=== PATIENT | male | born 1955 | race Caucasian/White ===

== ENCOUNTER → 2017-03-01 | Outpatient (CLI) | payer BC ==
--- NOTE | 2017-03-03 09:38 | PE ---
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 Delayed scanning performed from the skull base to th e mid thighs. Localization and attenuation correction CT scan was performed. There are no comparisons Neck and chest: No suspicious hypermetabolic uptake. There is no evident adenopathy. No lung nodule. Calcified left hilar nodes are present. There is some distention of the distal esophagus. Abnormal so ft tissue thickening is present at this level. There is some associated mild hypermetabolic uptake at the level of the distal esophagus, SUV 3.3. Emphysematous changes are present especially in the uppe r lobes. Abdomen pelvis: No evident liver mass. No retroperitoneal adenopathy. No suspicious hypermetabolic up take. Uptake along the sigmoid colon felt likely to be physiologic, SUV is increased however, 12.1. U ptake in the rectum likely physiologic. Osseous structures within normal limits IMPRESSION: There is only mild uptake at the level of the esophagus distally as described. Old granul omatous disease. Sigmoid colon uptake could be physiologic, correlate to exclude colitis, consider baldev wel surveillance.
== END ==
LOC: RADPETMAIN 10:51
PROVIDERS: ATTEND Internal Medicine Hematology & Oncology
DX: C15.5 Malignant neoplasm of lower third of esophagus (principal); L92.9 Granulomatous disorder of the skin and subcutaneous tissue, unspecified
CPT/HCPCS: 78815; A9552

== ENCOUNTER 2017-03-14 10:32 | Emergency (ER) | payer BC ==
[2017-03-14] MEDS ORDERED: IPRATROPIUM-ALBUTEROL 3 ML NEB INHALATION STA (10:46)
[2017-03-14] MEDS ORDERED: SODIUM CHLORIDE 0.9% 1,000 ML IV STA (10:46)
[2017-03-14] MEDS ORDERED: methylPREDNISolone SOD SUCCI 125 MG/2 ML VIAL IV STA (10:46)
[2017-03-14] MEDS ORDERED: KETOROLAC 30 MG/ML 1 ML VIAL IVP STA (10:46)
--- NOTE | 2017-03-14 11:23 | ED ---
General Adult HPI - General Chief complaint: Chest Pain Stated complaint: Chest Pain Time Seen by Provider: 03/14/17 10:45 Source: patient, family, RN notes reviewed, old records reviewed Mode of arrival: wheelchair Limitations: no limitations - History of Present Illness Initial comments: This is a 61-year-old male to the ER for evaluation. This patient presents today for evaluation regarding chest pain. Chest pain and abdominal pain. Patient states pain is more in his epigastric area and feels like bloating. Patient currently is going through radiation for esophageal cancer. physical after 2 weeks, the pain is episodic. No nausea vomiting no abdominal symptoms. No significant source of breath denies any history of chest pain. Patient denies any fever cough or congestion. Patient is not taking any pain medication at home, no modifying factors for symptoms - Related Data Home Medications Medication Instructions Recorded Confirmed Albuterol Inhaler [Ventolin Hfa 1 - 2 puff INHALATION RT-Q4H PRN 03/14/17 Inhaler] Albuterol Nebulized [Ventolin 2.5 mg INHALATION RT-QID PRN 03/14/17 03/14/17 Nebulized] Beclomethasone Dipropionate [Qvar 2 puff INHALATION RT-BID 03/14/17 03/14/17 80 mcg] Previous Rx's Medication Instructions Recorded HYDROcodone/APAP 5-325MG [[place] 1 tab PO Q6HR PRN #30 tab 03/14/17 5-325] Allergies Allergy/AdvReac Type Severity Reaction Status Date / Time No Known Allergies Allergy Verified 03/14/17 10:45 Review of Systems ROS Statement: Those systems with pertinent positive or pertinent negative responses have been documented in the HPI. ROS Other: All systems not noted in ROS Statement are negative. Past Medical History Past Medical History: Cancer, COPD Additional Past Medical History / Comment(s): radiation History of Any Multi-Drug Resistant Organisms: None Reported Past Psychological History: No Psychological Hx Reported Smoking Status: Current some day smoker Past Alcohol Use History: Rare Past Drug Use History: None Reported General Exam Limitations: no limitations General appearance: alert, in no apparent distress Head exam: Present: atraumatic, normocephalic, normal inspection Eye exam: Present: normal appearance, PERRL, EOMI. Absent: scleral icterus, conjunctival injection, periorbital swelling ENT exam: Present: normal exam, mucous membranes moist Neck exam: Present: normal inspection. Absent: tenderness, meningismus, lymphadenopathy Respiratory exam: Present: normal lung sounds bilaterally. Absent: respiratory distress, wheezes, rales, rhonchi, stridor Cardiovascular Exam: Present: regular rate, normal rhythm, normal heart sounds. Absent: systolic murmur, diastolic murmur, rubs, gallop, clicks GI/Abdominal exam: Present: soft, normal bowel sounds. Absent: distended, tenderness, guarding, rebound, rigid Extremities exam: Present: normal inspection, full ROM, normal capillary refill. Absent: tenderness, pedal edema, joint swelling, calf tenderness Back exam: Present: normal inspection Neurological exam: Present: alert, oriented X3, CN II-XII intact Psychiatric exam: Present: normal affect, normal mood Skin exam: Present: warm, dry, intact, normal color. Absent: rash Course Vital Signs 03/14/17 03/14/17 03/14/17 10:34 11:21 11:31 Temperature 97 F L Pulse Rate 85 76 79 Respiratory 16 16 Rate Blood Pressure 111/77 O2 Sat by Pulse 94 L Oximetry - Reevaluation(s) Reevaluation #1: 03/14/17 13:07 Patient's not asking for any acute pain medication at this time. No shortness of breath. Pain is not reproducible to palpation EKG Findings - EKG Comments: EKG Findings:: EKG shows normal sinus rhythm rate of 76, IN 160, QRS 80, QTC 459 Medical Decision Making - Medical Decision Making 61 male the ER for evaluation of epigastric abdominal pain. Bloating and swelling. Patient denies fever cough congestion, no shortness of breath. No nausea vomiting or diarrhea. Patient will be discharged home - Lab Data Result diagrams: 03/14/17 11:03/14/17 11:09 Lab Results 03/14/17 03/14/17 03/14/17 Range/Units 11: 11: 11: WBC 4.9 (3.8-10.6) k/uL RBC 4.66 (4.30-5.90) m/uL Hgb 14.0 (13.0-17.5) gm/dL Hct 40.8 (39.0-53.0) % MCV 87.5 (80.0-100.0) fL MCH 30.1 (25.0-35.0) pg MCHC 34.4 (31.0-37.0) g/dL RDW 12.2 (11.5-15.5) % Plt Count 275 (150-450) k/uL Neutrophils % 74 % Lymphocytes % 15 % Monocytes % 6 % Eosinophils % 3 % Basophils % 1 % Neutrophils # 3.6 (1.3-7.7) k/uL Lymphocytes # 0.7 L (1.0-4.8) k/uL Monocytes # 0.3 (0-1.0) k/uL Eosinophils # 0.1 (0-0.7) k/uL Basophils # 0.0 (0-0.2) k/uL PT (9.0-12.0) sec INR (<1.2) APTT (22.0-30.0) sec Sodium 138 (137-145) mmol/L Potassium 4.4 (3.5-5.1) mmol/L Chloride 102 (98-107) mmol/L Carbon Dioxide 29 (22-30) mmol/L Anion Gap 7 mmol/L BUN 9 (9-20) mg/dL Creatinine 0.57 L (0.66-1.25) mg/dL Est GFR (MDRD) Af Amer >60 (>60 ml/min/1.73 sqM) Est GFR (MDRD) Non-Af >60 (>60 ml/min/1.73 sqM) Glucose 82 (74-99) mg/dL Calcium 9.5 (8.4-10.2) mg/dL Magnesium 2.2 (1.6-2.3) mg/dL Total Bilirubin 0.8 (0.2-1.3) mg/dL AST 23 (17-59) U/L ALT 34 (21-72) U/L Alkaline Phosphatase 54 (38-126) U/L Total Creatine Kinase 46 L (55-170) U/L CK-MB (CK-2) 0.9 (0.0-2.4) ng/mL CK-MB (CK-2) Rel Index 2.0 Troponin I <0.012 (0.000-0.034) ng/mL NT-Pro-B Natriuret Pep pg/mL Total Protein 6.5 (6.3-8.2) g/dL Albumin 4.0 (3.5-5.0) g/dL Lipase 245 (23-300) U/L 03/14/17 03/14/17 Range/Units 11:09 11:09 WBC (3.8-10.6) k/uL RBC (4.30-5.90) m/uL Hgb (13.0-17.5) gm/dL Hct (39.0-53.0) % MCV (80.0-100.0) fL MCH (25.0-35.0) pg MCHC (31.0-37.0) g/dL RDW (11.5-15.5) % Plt Count (150-450) k/uL Neutrophils % % Lymphocytes % % Monocytes % % Eosinophils % % Basophils % % Neutrophils # (1.3-7.7) k/uL Lymphocytes # (1.0-4.8) k/uL Monocytes # (0-1.0) k/uL Eosinophils # (0-0.7) k/uL Basophils # (0-0.2) k/uL PT 10.5 (9.0-12.0) sec INR 1.0 (<1.2) APTT 25.6 (22.0-30.0) sec Sodium (137-145) mmol/L Potassium (3.5-5.1) mmol/L Chloride (98-107) mmol/L Carbon Dioxide (22-30) mmol/L Anion Gap mmol/L BUN (9-20) mg/dL Creatinine (0.66-1.25) mg/dL Est GFR (MDRD) Af Amer (>60 ml/min/1.73 sqM) Est GFR (MDRD) Non-Af (>60 ml/min/1.73 sqM) Glucose (74-99) mg/dL Calcium (8.4-10.2) mg/dL Magnesium (1.6-2.3) mg/dL Total Bilirubin (0.2-1.3) mg/dL AST (17-59) U/L ALT (21-72) U/L Alkaline Phosphatase (38-126) U/L Total Creatine Kinase (55-170) U/L CK-MB (CK-2) (0.0-2.4) ng/mL CK-MB (CK-2) Rel Index Troponin I (0.000-0.034) ng/mL NT-Pro-B Natriuret Pep 69 pg/mL Total Protein (6.3-8.2) g/dL Albumin (3.5-5.0) g/dL Lipase (23-300) U/L - Radiology Data Radiology results: report reviewed (Chest x-ray is negative for acute disease), image reviewed Disposition Clinical Impression: Chest pain, Abdominal pain Disposition: HOME SELF-CARE Condition: Good Instructions: Abdominal Pain (ED) Prescriptions: HYDROcodone/APAP 5-325MG [[place] 5-325] 1 tab PO Q6HR PRN #30 tab PRN Reason: Pain Referrals: Carolina Petersen MD [Primary Care Provider] - 1-2 days
[2017-03-14 11:32] LABS: Basophils % (A) 1 %; CH 29.8; CHCM 34.2; Eosinophils # (A) 0.1 k/uL (0-0.7); Eosinophils % (A) 3 %; HCT 40.8 % (39.0-53.0); Luc # (Auto) 0.05; Luc % (Auto) 1; Lymphocytes # (A) 0.7 k/uL (1.0-4.8); Lymphocytes % (A) 15 %; MCH 30.1 pg (25.0-35.0); MCHC 34.4 g/dL (31.0-37.0); MCV 87.5 fL (80.0-100.0); Mean Platelet Volume 6.5; Monocytes # (A) 0.3 k/uL (0-1.0); Monocytes % (A) 6 %; Neutrophils # (A) 3.6 k/uL (1.3-7.7); Neutrophils % (A) 74 %; RBC 4.66 m/uL (4.30-5.90); RDW 12.2 % (11.5-15.5); WBC 4.9 k/uL (3.8-10.6); WBC (Perox) 4.57
[2017-03-14 11:44] LABS: ALT 34 U/L (21-72); AST 23 U/L (17-59); Alkaline Phosphatase 54 U/L (38-126); Anion Gap 7 mmol/L; Blood Urea Nitrogen 9 mg/dL (9-20); Calcium 9.5 mg/dL (8.4-10.2); Carbon Dioxide 29 mmol/L (22-30); Chloride 102 mmol/L (98-107); Glucose 82 mg/dL (74-99); Magnesium 2.2 mg/dL (1.6-2.3); Non-African American GFR(MDRD) >60 (>60 ml/min/1.73 sqM); Potassium 4.4 mmol/L (3.5-5.1); Sodium 138 mmol/L (137-145); Total Bilirubin 0.8 mg/dL (0.2-1.3); Total Protein 6.5 g/dL (6.3-8.2)
[2017-03-14 11:45] LABS: Partial Thromboplastin Time 25.6 sec (22.0-30.0); Prothrombin Time 10.5 sec (9.0-12.0)
[2017-03-14 11:56] LABS: Creatine Kinase 46 U/L (55-170)
--- NOTE | 2017-03-14 12:03 | XR ---
EXAMINATION TYPE: XR chest 2V DATE OF EXAM: 03/14/2017 COMPARISON: None HISTORY: 61-year-old male with chest pain TECHNIQUE: Frontal and lateral views FINDINGS: The cardiomediastinal silhouette, aorta, and pulmonary vasculature are within normal limits. Lungs an d pleural spaces are clear. IMPRESSION: No acute cardiopulmonary process.
[2017-03-14 12:09] LABS: Creatine Kinase MB 0.9 ng/mL (0.0-2.4); Troponin I <0.012 ng/mL (0.000-0.034)
[2017-03-14 13:10] VITALS: BP 122/86; PULSE 89; RESP 18; TEMP 97.7
== END 2017-03-14 13:10 | disposition home or self-care (01) ==
LOC: EC 10:32
DX: R07.9 Chest pain, unspecified (principal); R10.13 Epigastric pain; C15.9 Malignant neoplasm of esophagus, unspecified; R14.0 Abdominal distension (gaseous); R19.00 Intra-abdominal and pelvic swelling, mass and lump, unspecified site; J44.9 Chronic obstructive pulmonary disease, unspecified; F17.200 Nicotine dependence, unspecified, uncomplicated; Z79.51 Long term (current) use of inhaled steroids; Z92.3 Personal history of irradiation
CPT/HCPCS: 36415; 94640; 83880; 80053; 82550; 82553; 83690; 83735; 84484; 85025; 85610; 85730; 71020; 99285; 96374; 96375; 96361 ×2; J2930; J1885

== ENCOUNTER → 2017-05-08 | Outpatient (CLI) | payer BC ==
[2017-05-08 17:13] LABS: Basophils % (A) 1 %; CH 30.8; CHCM 32.8; Eosinophils % (A) 1 %; HCT 42.4 % (39.0-53.0); HDW 2.81; HGB 14.1 gm/dL (13.0-17.5); Luc # (Auto) 0.18; Luc % (Auto) 4; Lymphocytes # (A) 0.6 k/uL (1.0-4.8); Lymphocytes % (A) 13 %; MCH 31.4 pg (25.0-35.0); MCHC 33.3 g/dL (31.0-37.0); Mean Platelet Volume 6.5; Monocytes # (A) 0.7 k/uL (0-1.0); Monocytes % (A) 13 %; Neutrophils # (A) 3.4 k/uL (1.3-7.7); Neutrophils % (A) 69 %; RBC 4.49 m/uL (4.30-5.90); RDW 15.1 % (11.5-15.5); WBC 4.9 k/uL (3.8-10.6); WBC (Perox) 5.13
[2017-05-08 17:21] LABS: MCV 94.4 fL (80.0-100.0)
[2017-05-08 17:22] LABS: Anion Gap 12 mmol/L; Blood Urea Nitrogen 10 mg/dL (9-20); Carbon Dioxide 24 mmol/L (22-30); Chloride 102 mmol/L (98-107); Non-African American GFR(MDRD) >60 (>60 ml/min/1.73 sqM); Potassium 4.7 mmol/L (3.5-5.1); Sodium 138 mmol/L (137-145)
[2017-05-08 17:24] LABS: INR 1.1 (<1.2); Partial Thromboplastin Time 26.6 sec (22.0-30.0); Prothrombin Time 11.5 sec (9.0-12.0)
== END | disposition home or self-care (01) ==
LOC: LABPAT 16:16
PROVIDERS: ATTEND Thoracic Surgery (Cardiothoracic Vascular Surgery)
DX: Z01.812 Encounter for preprocedural laboratory examination (principal); C15.5 Malignant neoplasm of lower third of esophagus
CPT/HCPCS: 80051; 82565; 84520; 85025; 85610; 85730; 87086

== ENCOUNTER → 2017-05-10 | Outpatient (CLI) | payer BC ==
--- NOTE | 2017-05-13 14:47 | PE ---
Nuclear medicine PET/CT HISTORY: Esophageal cancer Patient received 14.5 mCi F-18 FDG intravenously. Delayed scanning was performed from the skull base to the mid thighs. Localization and attenuation correction CT scan was performed. Correlation to prior nuclear medicine PET/CT dated 03/01/2017 Neck and chest: Only mild hypermetabolic uptake is present at the level of the distal esophagus, SUV 4.1, SUV on prior 3.3. No evident adenopathy. Emphysematous changes are present within the lungs. Abdomen pelvis: Essentially stable findings. No suspicious hypermetabolic uptake. Osseous structures: No significant abnormality IMPRESSION: Uptake in the distal esophagus compatible with patient's history.
== END | disposition home or self-care (01) ==
LOC: RADPETMAIN 09:25
PROVIDERS: ATTEND Radiology Radiation Oncology
DX: C15.5 Malignant neoplasm of lower third of esophagus (principal)
CPT/HCPCS: 78815; A9552

== ENCOUNTER 2017-06-16 10:45 | Emergency (ER) | payer BC, OTHER ==
--- NOTE | 2017-06-16 11:19 | ED ---
General Adult HPI - General Chief complaint: Syncope Stated complaint: Near Syncope-oncology pt Time Seen by Provider: 06/16/17 11:06 Source: patient, RN notes reviewed Mode of arrival: wheelchair Limitations: no limitations - History of Present Illness Initial comments: Patient is a pleasant [age]-year-old male presenting to the emergency department with syncopal versus near-syncopal episode. Patient had 2 episodes last night and one this morning. Patient believes she probably lost consciousness for just 1 second. Patient states he feels somewhat fatigued otherwise no specific complaints. Patient does admit he may have some mild shortness of breath however believes this is chronic from his asthma/COPD. Patient does not want a breathing treatment at this time. No chest pain. No abdominal pain. No back pain. No weakness or confusion. - Related Data Home Medications Medication Instructions Recorded Confirmed Albuterol Nebulized [Ventolin 2.5 mg INHALATION RT-Q6H PRN 03/14/17 06/16/17 Nebulized] Beclomethasone Dipropionate [Qvar 2 puff INHALATION RT-BID PRN 03/14/17 06/16/17 80 mcg] Allergies Allergy/AdvReac Type Severity Reaction Status Date / Time No Known Allergies Allergy Verified 06/16/17 11:19 Review of Systems ROS Statement: Those systems with pertinent positive or pertinent negative responses have been documented in the HPI. ROS Other: All systems not noted in ROS Statement are negative. Constitutional: Denies: fever Eyes: Denies: eye pain ENT: Denies: ear pain Respiratory: Reports: as per HPI. Denies: cough Cardiovascular: Denies: chest pain Endocrine: Reports: fatigue Gastrointestinal: Denies: abdominal pain Genitourinary: Denies: dysuria Musculoskeletal: Denies: back pain Skin: Denies: rash Past Medical History Past Medical History: Cancer, COPD, Pneumonia Additional Past Medical History / Comment(s): esophageal cancer, finished radiation to esophagus 19 days ago, chemo finished about 3 weeks ago History of Any Multi-Drug Resistant Organisms: None Reported Additional Past Surgical History / Comment(s): EGD Past Psychological History: No Psychological Hx Reported Smoking Status: Light tobacco smoker Past Alcohol Use History: None Reported - Past Family History Sister(s) Family Medical History: Cancer Brother(s) Family Medical History: Cancer General Exam Limitations: no limitations General appearance: alert, in no apparent distress Head exam: Present: atraumatic Eye exam: Present: normal appearance, PERRL ENT exam: Present: normal oropharynx Neck exam: Present: normal inspection Respiratory exam: Present: normal lung sounds bilaterally Cardiovascular Exam: Present: regular rate, normal rhythm Expanded Peripheral pulses: 2+: Radial (R), Radial (L), Posterior Tibialis (R), Posterior Tibialis (L) GI/Abdominal exam: Present: soft. Absent: tenderness Extremities exam: Present: normal inspection. Absent: pedal edema, calf tenderness Neurological exam: Present: alert, oriented X3, CN II-XII intact. Absent: motor sensory deficit Expanded Sensory exam: Upper Extremity Light Touch: Normal, Lower Extremity Light Touch: Normal Motor strength exam: RUE: 5, LUE: 5, RLE: 5, LLE: 5 Eye Response: (4) open spontaneously Motor Response: (6) obeys commands Verbal Response: (5) oriented Psychiatric exam: Present: normal affect, normal mood Skin exam: Present: normal color Course Vital Signs 06/16/17 06/16/17 06/16/17 10:47 11:45 13:19 Temperature 97.8 F Pulse Rate 85 75 80 Respiratory 16 20 16 Rate Blood Pressure 129/78 109/79 121/66 O2 Sat by Pulse 97 99 94 L Oximetry EKG Findings - EKG Comments: EKG Findings:: Normal sinus rhythm 85. OR 150. QRS 78. QT 376. QTc 447. Normal axis. Normal QRS. No acute ST change. Medical Decision Making - Medical Decision Making Patient reevaluated and resting comfortably in bed. Patient and family are updated on results. They're also made aware of limitations of tests in the emergency department. Recommendation is made for admission. Dr. Stinson was contacted who did agree with this. Despite this patient refuses admission. Patient does not feel like he wants to stay in the hospital. Patient does show ability to demonstrate medical decision making. Patient is agreeable for follow -up. - Lab Data Result diagrams: 06/16/17 11:10 06/16/17 11:10 Lab Results 06/16/17 06/16/17 06/16/17 Range/Units 11:10 11:10 11:10 WBC 5.8 (3.8-10.6) k/uL RBC 4.52 (4.30-5.90) m/uL Hgb 13.6 (13.0-17.5) gm/dL Hct 42.1 (39.0-53.0) % MCV 93.0 (80.0-100.0) fL MCH 30.0 (25.0-35.0) pg MCHC 32.3 (31.0-37.0) g/dL RDW 14.7 (11.5-15.5) % Plt Count 227 (150-450) k/uL Neutrophils % 72 % Lymphocytes % 13 % Monocytes % 9 % Eosinophils % 3 % Basophils % 1 % Neutrophils # 4.2 (1.3-7.7) k/uL Lymphocytes # 0.8 L (1.0-4.8) k/uL Monocytes # 0.5 (0-1.0) k/uL Eosinophils # 0.2 (0-0.7) k/uL Basophils # 0.0 (0-0.2) k/uL PT (9.0-12.0) sec INR (<1.2) APTT (22.0-30.0) sec D-Dimer (<0.60) mg/L FEU Sodium 140 (137-145) mmol/L Potassium 4.3 (3.5-5.1) mmol/L Chloride 106 (98-107) mmol/L Carbon Dioxide 23 (22-30) mmol/L Anion Gap 11 mmol/L BUN 7 L (9-20) mg/dL Creatinine 0.61 L (0.66-1.25) mg/dL Est GFR (MDRD) Af Amer >60 (>60 ml/min/1.73 sqM) Est GFR (MDRD) Non-Af >60 (>60 ml/min/1.73 sqM) Glucose 107 H (74-99) mg/dL Calcium 10.1 (8.4-10.2) mg/dL Total Bilirubin 0.4 (0.2-1.3) mg/dL AST 32 (17-59) U/L ALT 33 (21-72) U/L Alkaline Phosphatase 58 (38-126) U/L Total Creatine Kinase 51 L (55-170) U/L CK-MB (CK-2) 0.8 (0.0-2.4) ng/mL CK-MB (CK-2) Rel Index 1.6 Troponin I <0.012 (0.000-0.034) ng/mL Total Protein 7.2 (6.3-8.2) g/dL Albumin 4.2 (3.5-5.0) g/dL Urine Color Urine Appearance (Clear) Urine pH (5.0-8.0) Ur Specific [place] (1.001-1.035) Urine Protein (Negative) Urine Glucose (UA) (Negative) Urine Ketones (Negative) Urine Blood (Negative) Urine Nitrite (Negative) Urine Bilirubin (Negative) Urine Urobilinogen (<2.0) mg/dL Ur Leukocyte Esterase (Negative) 06/16/17 06/16/17 Range/Units 11:10 12:15 WBC (3.8-10.6) k/uL RBC (4.30-5.90) m/uL Hgb (13.0-17.5) gm/dL Hct (39.0-53.0) % MCV (80.0-100.0) fL MCH (25.0-35.0) pg MCHC (31.0-37.0) g/dL RDW (11.5-15.5) % Plt Count (150-450) k/uL Neutrophils % % Lymphocytes % % Monocytes % % Eosinophils % % Basophils % % Neutrophils # (1.3-7.7) k/uL Lymphocytes # (1.0-4.8) k/uL Monocytes # (0-1.0) k/uL Eosinophils # (0-0.7) k/uL Basophils # (0-0.2) k/uL PT 11.1 (9.0-12.0) sec INR 1.1 (<1.2) APTT 25.6 (22.0-30.0) sec D-Dimer 0.26 (<0.60) mg/L FEU Sodium (137-145) mmol/L Potassium (3.5-5.1) mmol/L Chloride (98-107) mmol/L Carbon Dioxide (22-30) mmol/L Anion Gap mmol/L BUN (9-20) mg/dL Creatinine (0.66-1.25) mg/dL Est GFR (MDRD) Af Amer (>60 ml/min/1.73 sqM) Est GFR (MDRD) Non-Af (>60 ml/min/1.73 sqM) Glucose (74-99) mg/dL Calcium (8.4-10.2) mg/dL Total Bilirubin (0.2-1.3) mg/dL AST (17-59) U/L ALT (21-72) U/L Alkaline Phosphatase (38-126) U/L Total Creatine Kinase (55-170) U/L CK-MB (CK-2) (0.0-2.4) ng/mL CK-MB (CK-2) Rel Index Troponin I (0.000-0.034) ng/mL Total Protein (6.3-8.2) g/dL Albumin (3.5-5.0) g/dL Urine Color Light Yellow Urine Appearance Clear (Clear) Urine pH 6.5 (5.0-8.0) Ur Specific [place] 1.005 (1.001-1.035) Urine Protein Negative (Negative) Urine Glucose (UA) Negative (Negative) Urine Ketones Negative (Negative) Urine Blood Negative (Negative) Urine Nitrite Negative (Negative) Urine Bilirubin Negative (Negative) Urine Urobilinogen <2.0 (<2.0) mg/dL Ur Leukocyte Esterase Negative (Negative) - Radiology Data Radiology results: report reviewed (Computed tomography scan of the brain shows no acute process.), image reviewed (Chest x-ray shows no acute process.) Disposition Clinical Impression: Syncope Disposition: HOME SELF-CARE Condition: Stable Instructions: Syncope (ED) Additional Instructions: Please follow-up with primary care physician and Dr. Stinson in the next day or 2 for recheck. Return for passing out, increased heart rate, chest pain, difficulty breathing, worsening or changing symptoms or other concerns. Referrals: Carolina Petersen MD [Primary Care Provider] - 1-2 days Time of Disposition: 14:01
[2017-06-16 11:36] LABS: Basophils % (A) 1 %; CH 30.6; Eosinophils # (A) 0.2 k/uL (0-0.7); Eosinophils % (A) 3 %; HCT 42.1 % (39.0-53.0); HDW 2.35; HGB 13.6 gm/dL (13.0-17.5); Luc # (Auto) 0.12; Luc % (Auto) 2; Lymphocytes # (A) 0.8 k/uL (1.0-4.8); Lymphocytes % (A) 13 %; MCHC 32.3 g/dL (31.0-37.0); Mean Platelet Volume 6.9; Monocytes # (A) 0.5 k/uL (0-1.0); Monocytes % (A) 9 %; Neutrophils # (A) 4.2 k/uL (1.3-7.7); Neutrophils % (A) 72 %; RBC 4.52 m/uL (4.30-5.90); RDW 14.7 % (11.5-15.5); WBC 5.8 k/uL (3.8-10.6); WBC (Perox) 5.68
--- NOTE | 2017-06-16 11:47 | CT ---
EXAMINATION TYPE: CT brain wo con DATE OF EXAM: 06/16/2017 COMPARISON: NONE HISTORY: Near syncope CT DLP: 928.[address] of the brain was performed. The ventricles, basal cisterns and sulci overlying the cerebral convexities demonstrate mild enlargem ent. There is no evidence for intracranial hemorrhage or sulcal effacement. There is decreased attenuation about the periventricular white matter and deep white matter of both c erebral hemispheres, compatible with chronic small vessel ischemia. Differential diagnosis does inclu de demyelination. No mass effects are seen.No midline shift. Osseous calvarium is intact. If symptoms persist consider MRI. Chronic paranasal sinusitis noted. IMPRESSION: 1. Age related atrophic and chronic small vessel ischemic change without acute intracranial process s een at this time.
[2017-06-16 11:49] LABS: ALT 33 U/L (21-72); AST 32 U/L (17-59); Alkaline Phosphatase 58 U/L (38-126); Anion Gap 11 mmol/L; Blood Urea Nitrogen 7 mg/dL (9-20); Calcium 10.1 mg/dL (8.4-10.2); Carbon Dioxide 23 mmol/L (22-30); Chloride 106 mmol/L (98-107); Glucose 107 mg/dL (74-99); Non-African American GFR(MDRD) >60 (>60 ml/min/1.73 sqM); Potassium 4.3 mmol/L (3.5-5.1); Sodium 140 mmol/L (137-145); Total Bilirubin 0.4 mg/dL (0.2-1.3); Total Protein 7.2 g/dL (6.3-8.2)
--- NOTE | 2017-06-16 11:52 | XR ---
EXAMINATION TYPE: XR chest 2V DATE OF EXAM: 06/16/2017 COMPARISON: March 14, 2017 HISTORY: Shortness of breath TECHNIQUE: Frontal and lateral views of the chest are obtained. FINDINGS: Scattered senescent parenchymal changes noted. Hyperinflation compatible with COPD. No evidence for infiltrate. No evidence for atelectasis. Heart size is stable. Mediastinal structures are stable and grossly unremarkable. No evidence for hilar prominence. Degenerative changes dorsal spine. IMPRESSION: 1. No evidence for acute pulmonary disease.
[2017-06-16 11:56] LABS: Creatine Kinase 51 U/L (55-170)
[2017-06-16 12:09] LABS: Creatine Kinase MB 0.8 ng/mL (0.0-2.4); Troponin I <0.012 ng/mL (0.000-0.034)
[2017-06-16 12:27] LABS: Appearance,Urine Clear (Clear); Bilirubin,Urine Negative (Negative); Glucose,Urine (UA) Negative (Negative); Ketones,Urine Negative (Negative); Leukocyte Esterase,Urine Negative (Negative); Nitrite,Urine Negative (Negative); PH, Urine 6.5 (5.0-8.0); Protein,Urine Negative (Negative); Specific Gravity,Urine 1.005 (1.001-1.035); UA Billing (MACRO vs. MICRO) CHEM; Urobilinogen,Urine <2.0 mg/dL (<2.0)
[2017-06-16 13:01] LABS: INR 1.1 (<1.2); Partial Thromboplastin Time 25.6 sec (22.0-30.0); Prothrombin Time 11.1 sec (9.0-12.0)
[2017-06-16 13:20] VITALS: BP 121/66; PULSE 80; RESP 16
[2017-06-16 14:10] VITALS: TEMP 97.6
== END 2017-06-16 14:09 | disposition home or self-care (01) ==
LOC: EC 10:45
DX: R55 Syncope and collapse (principal); F17.200 Nicotine dependence, unspecified, uncomplicated
CPT/HCPCS: 36415; 70450; 71020; 80053; 81003; 82550; 82553; 84484; 85025; 85379; 85610; 85730; 93005; 99284

== ENCOUNTER → 2017-08-23 | Outpatient (CLI) | payer OTHER ==
--- NOTE | 2017-08-25 17:42 | PE ---
EXAMINATION TYPE: PET CT fusion skull to thigh DATE OF EXAM: 08/23/2017 CLINICAL HISTORY: 52-year-old male subsequent, restaging esophageal cancer. TECHNIQUE: Following the intravenous administration of 13.53 mCi of F-18 FDG, whole body images are performed from the skull base to the midthigh. Images are reviewed on the computer in the coronal, axial, and sagittal planes. Reconstructed rotating images are created on independent workstation and reviewed on the computer. A localization and attenuation correction CT is performed in conjunction with the PET scan. Glucose level: 97 mg/dL CTDI: 3.71 mGy DLP: 329.97 mGy-cm COMPARISON: 05/10/2017 FINDINGS: PET: Borderline moderate persisting activity in the patient's distal esophagus, max SUV 3.7 versus 4.1, pr eviously. New intense activity along the left ventricular myocardium as compared to prior exam. Possibly physio logic or could represent myocarditis. Increased activity along the course of the ureters compatible with excreting FDG. There is a small focus of mild uptake along the anterior right lower quadrant that seems to be locate d along the anterior wall of the lower ascending colon. Max SUV 2.7. No discrete abnormality here on CT. Degenerative uptake in the hands and additional focal uptake at the right wrist related to the inject ion site. Otherwise, physiologic FDG uptake within the neck, chest, abdomen, and pelvis. ATTENUATION CORRECTION CT: Small air-fluid level within the left maxillary sinus with mild mucosal thickening. Mastoid air cells are well pneumatized. No cervical lymphadenopathy. Heart normal size without pericardial effusion. Aorta normal caliber with conventional arch vessel branching anatomy. Calcified left hilar lymph node s compatible with prior granulomatous disease. No thoracic lymphadenopathy by CT size criteria. Mild diffuse bronchial wall thickening and mild centrilobular emphysema compatible with COPD. No consolida tion or pleural effusion. Multiple calcified granulomas within the spleen. No dilated small bowel, free fluid, or free air. No mesenteric or retroperitoneal lymphadenopathy. Mild stool burden. Mild circumferential bladder wall thickening. No abnormal fluid collection in the pelvis or pelvic ly mphadenopathy seen. Bones: Mild endplate spondylosis lower thoracic spine. Additional cervical spondylosis is present. No osseous destructive process. IMPRESSION: 1. Residual borderline moderate distal esophageal uptake at the site of patient's known esophageal ca ncer (Max SUV 3.7 versus 4.1, previously). 2. No evidence for metastatic disease. 3. New intense left ventricular myocardial uptake could be physiologic or could reflect myocarditis. 4. Focal area of mild uptake along the anterior wall of the lower ascending colon. No CT correlate he re. Attention on follow-up. Consider screening colonoscopy if it is not already being routinely perfo rmed. 5. Incidental: Possible acute left maxillary sinusitis, prior granulomatous disease, COPD, and mild c ircumferential bladder wall thickening that could represent cystitis or chronic bladder wall hypertro phy.
== END | disposition home or self-care (01) ==
LOC: RADPETMAIN 09:58
PROVIDERS: ATTEND Internal Medicine Hematology & Oncology
DX: C15.5 Malignant neoplasm of lower third of esophagus (principal)
CPT/HCPCS: 78815; A9552

== ENCOUNTER → 2018-01-05 | Outpatient (CLI) | payer OTHER ==
--- NOTE | 2018-01-05 14:00 | CT ---
EXAMINATION TYPE: CT ChestAbdPelvis w con DATE OF EXAM: 01/05/2018 COMPARISON: PET CT fusion 08/23/2017 HISTORY: Esophageal cancer CT DLP: 659.10 mGycm CONTRAST: CT scan of the chest, abdomen and pelvis is performed with Oral Contrast and with IV Contrast, patien t injected with 100 ml mL of Isovue 300. CT Chest: LUNGS: The lungs are clear and free of infiltrate or atelectasis. No pulmonary nodule or mass is det ected. No pleural effusion or CT evidence of interstitial lung disease. MEDIASTINUM: There is evidence of esophagectomy with gastric pull-through procedure. No evidence for mass Thoracic aorta is of normal caliber. The heart is not enlarged. No evidence for mediastinal ma ss or adenopathy. HILAR STRUCTURES: No evidence for mass. No hilar adenopathy is appreciated. OTHER: No significant abnormality. CONTRAST CT ABDOMEN AND PELVIS FINDINGS: LIVER/GB: Mild hepatic steatosis noted. No calcified gallstones. No space occupying hepatic lesion. Biliary tree is of normal caliber. PANCREAS: No inflammation. No distinct mass. SPLEEN: No splenic enlargement. No lesion seen. Calcified granulomas of the spleen ADRENALS: No nodule. No thickening. KIDNEYS/BLADDER: No hydronephrosis. No nephrolithiasis. No disctinct renal mass. BOWEL: Normal appendix. Normal bowel caliber. No inflammation. GENITAL ORGANS: No gross abnormality. LYMPH NODES: No greater than 1cm abdominal or pelvic lymph nodes are appreciated. AORTA: No significant abnormality. OSSEOUS STRUCTURES: No significant abnormality is seen. OTHER: No significant additional abnormality is seen. IMPRESSION: 1. Esophagectomy with gastric pull-through procedure. No evidence for recurrent or residual mass. 2. Mild hepatic steatosis.
== END | disposition home or self-care (01) ==
LOC: RADCTMAIN 11:42
PROVIDERS: ATTEND Internal Medicine Hematology & Oncology
DX: K76.0 Fatty (change of) liver, not elsewhere classified (principal); Z90.49 Acquired absence of other specified parts of digestive tract; Z85.01 Personal history of malignant neoplasm of esophagus
CPT/HCPCS: 71260; 74177; Q9967

== ENCOUNTER → 2018-07-14 | Outpatient (CLI) | payer OTHER ==
--- NOTE | 2018-07-14 17:24 | CT ---
EXAMINATION TYPE: CT ChestAbdPelvis w con DATE OF EXAM: 07/14/2018 INDICATION: COMPARISON: 01/05/2018 CT DLP: 1190.78 and 276.29 mGycm CONTRAST: Oral contrast. Intravenous contrast was utilized. TECHNIQUE: Axial images at 5 mm thick sections. Reconstructed images in the coronal plane. Delayed images through the kidneys. FINDINGS: CT CHEST: Portion of the thyroid visualized is normal. No suspicious lung nodules or focal infiltrates are present. No enlarged mediastinal or hilar adenopathy is evident. The ascending aorta diameter at the level of the main pulmonary artery is 3.6 cm. The main pulmonary artery diameter at the bifurcation is 2.4 cm. Colonic interposition is present. Debris and contrast is within the distal colonic interposition. Pro ximal duodenum appears normal. Fecal debris is within the visualized colon. Small bowel loops contain ing oral contrast appear normal. Few diverticuli are within the sigmoid colon. CT ABDOMEN: Liver: Normal Spleen: Multiple calcified granuloma are within the spleen. Pancreas: There is mild prominence of the pancreatic duct which measures 0.3 cm at the body. Normal i s less than 0.2 cm. Adrenal glands: The adrenal glands are normal. Gallbladder: Normal Kidneys: No masses are evident. No hydronephrosis is present. No cysts are present. Delayed images were obtained through the kidneys, which remain unremarkable. Aorta: Vascular calcification is within the aorta. Inferior vena cava: Normal. CT PELVIS: Loops of bowel within the abdomen and pelvis are normal. There are loops of bowel which are incom pletely distended or lack oral contrast limiting their evaluation. Appendix: Normal as visualized. Urinary bladder: Normal. Genitourinary structures: Prostate is slightly prominent. Osseous structures: No suspicious lytic or sclerotic lesions. No suspicious mediastinal lymphadenopathy is evident. No abdominal adenopathy is apparent. No suspici ous pelvic adenopathy is present. IMPRESSIONS: 1. No suspicious changes to suggest recurrent or metastatic esophageal cancer.
== END ==
LOC: RADCTMAIN 11:54
PROVIDERS: ATTEND Internal Medicine Hematology & Oncology
DX: C15.5 Malignant neoplasm of lower third of esophagus (principal)
CPT/HCPCS: 71260; 74177; Q9967

== ENCOUNTER → 2019-01-13 | Outpatient (CLI) | payer OTHER ==
--- NOTE | 2019-01-13 14:42 | CT ---
EXAMINATION TYPE: CT ChestAbdPelvis w con DATE OF EXAM: 01/13/2019 COMPARISON: Prior CT 07/14/2018 HISTORY: Follow up esophageal CA CT DLP: 2058 mGycm Automated exposure control for dose reduction was used. CONTRAST: CT scan of the chest, abdomen and pelvis is performed with Oral Contrast and without and with IV Cont rast, patient injected with 100 mL of Isovue 300. FINDINGS: Lack of contrast could compromise sensitivity. Patient is status post esophagectomy and gas tric pull-through LUNGS: The lungs are grossly clear, there is no concerning parenchymal mass or nodule identified. Joesph trilobular emphysematous changes are present as on prior exam. There is no pleural effusion or pneum othorax seen. The tracheobronchial tree is patent. MEDIASTINUM: There are no greater than 1 cm hilar or mediastinal lymph nodes. Calcified left hilar no sabas are present. No pericardial effusion is seen. AORTA: No significant abnormality is seen. OTHER: No additional significant abnormality is seen. LIVER/GB: No evident mass. Punctate calcifications are present likely due to old granulomatous diseas e. Cysts gallbladder is normal. PANCREAS: No significant abnormality is seen. SPLEEN: Calcifications are compatible with old granulomatous disease ADRENALS: No significant abnormality is seen. KIDNEYS: No significant abnormality is seen. REPRODUCTIVE ORGANS: Prostate is enlarged and shows associated calcification BOWEL: No significant abnormality is seen. FREE AIR: No Free Air visible. ASCITES: None seen. RETROPERITONEAL ADENOPATHY: No retroperitoneal adenopathy is seen. LYMPH NODES: No greater than 1 cm abdominal or pelvic lymph nodes are appreciated. URINARY BLADDER: No significant abnormality is seen. PELVIC ADENOPATHY: None visualized. OSSEOUS STRUCTURES: No significant abnormality is seen. IMPRESSION: Postop changes are stable. Recurrence is not evident. Emphysema.
== END | disposition home or self-care (01) ==
LOC: RADCTMAIN 10:25
PROVIDERS: ATTEND Radiology Radiation Oncology
DX: Z08 Encounter for follow-up examination after completed treatment for malignant neoplasm (principal); J43.9 Emphysema, unspecified; C77.9 Secondary and unspecified malignant neoplasm of lymph node, unspecified; Z85.01 Personal history of malignant neoplasm of esophagus; Z90.49 Acquired absence of other specified parts of digestive tract
CPT/HCPCS: 71260; 74177; Q9967

== ENCOUNTER → 2019-08-11 | Outpatient (CLI) | payer OTHER ==
--- NOTE | 2019-08-12 09:05 | CT ---
EXAMINATION TYPE: CT brain w con DATE OF EXAM: 08/11/2019 COMPARISON: 06/16/2017 HISTORY: 64-year-old male Esophageal cancer. CT DLP: 1168.55 mGycm Automated exposure control for dose reduction was used. Technique: CT scan of the head is performed with IV Contrast, patient injected with 100 mL of Isovue 300. Coronal and sagittal reconstructions performed. FINDINGS: There is no abnormal enhancing mass or midline shift identified. The ventricles and sulci are within normal limits in size. Air-fluid level left maxillary sinus. Mild mucosal thickening right maxillary sinus. Mastoid air cell s are well pneumatized. Leftward nasal septal deviation. Stable pineal gland calcifications. Dural venous sinuses are patent. No enhancing intracranial lesion seen. IMPRESSION: 1. No enhancing intracranial lesion seen to suggest brain metastases. 2. Air-fluid level left maxillary sinus. Correlate for possible acute sinusitis.
--- NOTE | 2019-08-12 11:39 | CT ---
EXAMINATION TYPE: CT chest w con DATE OF EXAM: 08/11/2019 COMPARISON: 01/13/2019, 07/14/2018 HISTORY: 64-year-old male follow-up Esophageal cancer. TECHNIQUE: Contiguous axial scanning of the chest after the administration of 100 mL of Isovue 300. Coronal/sagittal reconstructions performed. CT DLP: 486.34mGycm. Automatic exposure control utilized for a dose reduction. FINDINGS: Heart normal size without pericardial effusion. Ectatic aortic root at 3.6 cm. Conventional arch vessel branching anatomy. Stable left tracheobronchial angle lymph node at 6 mm. No thoracic lymphadenopathy by CT size criteri a. Calcified lower right paratracheal and left hilar lymph nodes compatible with old granulomatous di sease. Postsurgical changes of esophagectomy and gastric pull-through procedure redemonstrated. Moderate upper lung emphysema. Mild biapical pleural-parenchymal scarring. Mild diffuse bronchial wal l thickening. No consolidation or pleural effusion. No suspicious pulmonary nodules. Visualized upper abdomen shows no gross abnormality. Multiple calcified granulomas within the spleen. Bones: [id number] degenerative disc disease lower thoracic spine. No osseous destructive proces s. IMPRESSION: 1. Status post esophagectomy with gastric pull-through procedure. No CT evidence for disease recurren ce or metastatic disease to the thorax. 2. COPD with moderate upper lung emphysema. 3. Changes of old granulomatous disease.
== END | disposition home or self-care (01) ==
LOC: RADCTMAIN 14:40
PROVIDERS: ATTEND Radiology Radiation Oncology
DX: J43.9 Emphysema, unspecified (principal); C15.5 Malignant neoplasm of lower third of esophagus; C77.9 Secondary and unspecified malignant neoplasm of lymph node, unspecified; Z90.49 Acquired absence of other specified parts of digestive tract
CPT/HCPCS: 70460; 71260; Q9967

== ENCOUNTER 2019-12-13 15:54 | Inpatient (IN) | payer MEDICARE, OTHER ==
[2019-12-13] MEDS ORDERED: SODIUM CHLORIDE 0.9% 1,000 ML IV STA ×3 (16:02→17:33)
[2019-12-13] MEDS ORDERED: ACETAMINOPHEN TAB 500 MG TAB PO STA (16:06)
--- NOTE | 2019-12-13 16:07 | ED ---
General Adult HPI - General Chief complaint: Fever Stated complaint: GI Bleed, Fever Time Seen by Provider: 12/13/19 15:54 Source: EMS Mode of arrival: EMS Limitations: no limitations - History of Present Illness Initial comments: This is a 64-year-old male with a history of esophageal cancer status post a salpingectomy a gastric pull-through in 2018 who presents by EMS today with complaints of generalized weakness some shortness of breath decreased oral intake he states he has some mild rectal bleeding today and also had a fever noted right paramedics of 101.5. She does have a history of emphysema he said some dry heaves but denies any cough sore throat rhinorrhea earaches dysuria though he states he been having trouble urinating recently. He started developing shakes and route to. No other modifying factors at this time. He does use oxygen at night. He denies any infectious disease exposure. - Related Data Home Medications Medication Instructions Recorded Confirmed Albuterol Nebulized [Ventolin 2.5 mg INHALATION RT-QID 03/14/17 12/13/19 Nebulized] Albuterol Inhaler [Ventolin Hfa 2 puff INHALATION RT-Q6H PRN 12/13/19 12/13/19 Inhaler] Balsalazide Disodium [Colazal] 2,250 mg PO BID-W/MEALS 12/13/19 12/13/19 Budesonide/Formoterol Fumarate 1 puff INHALATION RT-BID 12/13/19 12/13/19 [Symbicort 160-4.5 Mcg Inhaler] Dexamethasone [Decadron Elixir] 0.5 mg PO QID 12/13/19 12/13/19 Ferrous Sulfate [Feosol] 325 mg PO DAILY 12/13/19 12/13/19 HYDROcodone/APAP 5-325MG [[place] 1 tab PO DAILY PRN 12/13/19 12/13/19 5-325] Ipratropium Nebulized [Atrovent 0.5 mg INHALATION RT-QID 12/13/19 12/13/19 Nebulized 0.2 MG/ML] LORazepam [Ativan] 1 mg PO TID PRN 12/13/19 12/13/19 Allergies Allergy/AdvReac Type Severity Reaction Status Date / Time No Known Allergies Allergy Verified 12/13/19 17:13 Review of Systems ROS Statement: Those systems with pertinent positive or pertinent negative responses have been documented in the HPI. ROS Other: All systems not noted in ROS Statement are negative. Past Medical History Past Medical History: Cancer, COPD, Pneumonia Additional Past Medical History / Comment(s): esophageal cancer, finished radiation to esophagus 19 days ago, chemo finished about 3 weeks ago History of Any Multi-Drug Resistant Organisms: None Reported Additional Past Surgical History / Comment(s): EGD Past Psychological History: No Psychological Hx Reported Smoking Status: Light tobacco smoker Past Alcohol Use History: None Reported - Past Family History Sister(s) Family Medical History: Cancer Brother(s) Family Medical History: Cancer General Exam - General Exam Comments Initial Comments: Is a well-developed sec appearing male who is awake alert oriented 3 Limitations: no limitations General appearance: alert, in no apparent distress Head exam: Present: atraumatic, normocephalic, normal inspection Eye exam: Present: normal appearance, PERRL, EOMI. Absent: scleral icterus, conjunctival injection, periorbital swelling ENT exam: Present: mucous membranes dry Neck exam: Present: normal inspection, full ROM. Absent: tenderness, meningismus, lymphadenopathy Respiratory exam: Present: decreased breath sounds. Absent: respiratory distress, wheezes, rales, rhonchi, stridor Cardiovascular Exam: Present: normal rhythm, tachycardia, normal heart sounds. Absent: systolic murmur, diastolic murmur, rubs, gallop, clicks GI/Abdominal exam: Present: soft, normal bowel sounds. Absent: distended, tenderness, guarding, rebound, rigid Extremities exam: Present: normal inspection, full ROM, normal capillary refill. Absent: tenderness, pedal edema, joint swelling, calf tenderness Back exam: Present: normal inspection Neurological exam: Present: alert, oriented X3, CN II-XII intact Psychiatric exam: Present: normal affect, normal mood Skin exam: Present: warm, dry, intact, normal color. Absent: rash Course Vital Signs 12/13/19 12/13/19 12/13/19 15:56 16:00 16:50 Temperature 103.3 F H 103.2 F H Pulse Rate 123 H 111 H Respiratory 20 24 16 Rate Blood Pressure 123/78 107/64 O2 Sat by Pulse 98 96 Oximetry 12/13/19 18:11 Temperature 99.8 F H Pulse Rate 106 H Respiratory 16 Rate Blood Pressure 95/67 O2 Sat by Pulse 99 Oximetry - Reevaluation(s) Reevaluation #1: 12/13/19 18:26 Reevaluation patient is heart rate and fever have improved somewhat however no sources noted at this time for the fever. Reevaluation #2: 12/13/19 18:26 Patient's lactic acid is likely due to dehydration. Medical Decision Making - Medical Decision Making I did discuss findings with the patient and with Dr. Vizcaino's group. Patient will be admitted with fever of unknown origin initial IV antibiotics covidd test is pending - Lab Data Result diagrams: 12/13/19 16:42 12/13/19 16:42 Lab Results 12/13/19 12/13/19 12/13/19 Range/Units 16:07 16:42 16:42 WBC 12.4 H (3.8-10.6) k/uL RBC 4.23 L (4.30-5.90) m/uL Hgb 12.1 L (13.0-17.5) gm/dL Hct 38.6 L (39.0-53.0) % MCV 91.4 (80.0-100.0) fL MCH 28.7 (25.0-35.0) pg MCHC 31.4 (31.0-37.0) g/dL RDW 11.9 (11.5-15.5) % Plt Count 478 H (150-450) k/uL Neutrophils % 88 % Lymphocytes % 4 % Monocytes % 7 % Eosinophils % 0 % Basophils % 0 % Neutrophils # 10.8 H (1.3-7.7) k/uL Lymphocytes # 0.4 L (1.0-4.8) k/uL Monocytes # 0.9 (0-1.0) k/uL Eosinophils # 0.1 (0-0.7) k/uL Basophils # 0.0 (0-0.2) k/uL Sodium 132 L (137-145) mmol/L Potassium 4.7 (3.5-5.1) mmol/L Chloride 97 L (98-107) mmol/L Carbon Dioxide 26 (22-30) mmol/L Anion Gap 9 mmol/L BUN 12 (9-20) mg/dL Creatinine 0.69 (0.66-1.25) mg/dL Est GFR (CKD-EPI)AfAm >90 (>60 ml/min/1.73 sqM) Est GFR (CKD-EPI)NonAf >90 (>60 ml/min/1.73 sqM) Glucose 115 H (74-99) mg/dL Plasma Lactic Acid [place] (0.7-2.0) mmol/L Calcium 8.6 (8.4-10.2) mg/dL Magnesium 2.0 (1.6-2.3) mg/dL Total Bilirubin 0.6 (0.2-1.3) mg/dL AST 44 (17-59) U/L ALT 26 (4-49) U/L Alkaline Phosphatase 83 (38-126) U/L Creatine Kinase 30 L (55-170) U/L Troponin I (0.000-0.034) ng/mL Total Protein 6.3 (6.3-8.2) g/dL Albumin 3.1 L (3.5-5.0) g/dL Lipase 72 (23-300) U/L Urine Color Urine Appearance (Clear) Urine pH (5.0-8.0) Ur Specific [place] (1.001-1.035) Urine Protein (Negative) Urine Glucose (UA) (Negative) Urine Ketones (Negative) Urine Blood (Negative) Urine Nitrite (Negative) Urine Bilirubin (Negative) Urine Urobilinogen (<2.0) mg/dL Ur Leukocyte Esterase (Negative) Urine RBC (0-5) /hpf Urine WBC (0-5) /hpf Ur Squamous Epith Cells (0-4) /hpf Urine Mucus (None) /hpf Influenza Type A RNA Not Detected (Not Detectd) Influenza Type B (PCR) Not Detected (Not Detectd) 12/13/19 12/13/19 12/13/19 Range/Units 16:42 16:42 18:05 WBC (3.8-10.6) k/uL RBC (4.30-5.90) m/uL Hgb (13.0-17.5) gm/dL Hct (39.0-53.0) % MCV (80.0-100.0) fL MCH (25.0-35.0) pg MCHC (31.0-37.0) g/dL RDW (11.5-15.5) % Plt Count (150-450) k/uL Neutrophils % % Lymphocytes % % Monocytes % % Eosinophils % % Basophils % % Neutrophils # (1.3-7.7) k/uL Lymphocytes # (1.0-4.8) k/uL Monocytes # (0-1.0) k/uL Eosinophils # (0-0.7) k/uL Basophils # (0-0.2) k/uL Sodium (137-145) mmol/L Potassium (3.5-5.1) mmol/L Chloride (98-107) mmol/L Carbon Dioxide (22-30) mmol/L Anion Gap mmol/L BUN (9-20) mg/dL Creatinine (0.66-1.25) mg/dL Est GFR (CKD-EPI)AfAm (>60 ml/min/1.73 sqM) Est GFR (CKD-EPI)NonAf (>60 ml/min/1.73 sqM) Glucose (74-99) mg/dL Plasma Lactic Acid [place] 2.8 H* (0.7-2.0) mmol/L Calcium (8.4-10.2) mg/dL Magnesium (1.6-2.3) mg/dL Total Bilirubin (0.2-1.3) mg/dL AST (17-59) U/L ALT (4-49) U/L Alkaline Phosphatase (38-126) U/L Creatine Kinase (55-170) U/L Troponin I <0.012 (0.000-0.034) ng/mL Total Protein (6.3-8.2) g/dL Albumin (3.5-5.0) g/dL Lipase (23-300) U/L Urine Color Yellow Urine Appearance Cloudy (Clear) Urine pH 5.5 (5.0-8.0) Ur Specific [place] 1.028 (1.001-1.035) Urine Protein 1+ H (Negative) Urine Glucose (UA) Negative (Negative) Urine Ketones 3+ H (Negative) Urine Blood Negative (Negative) Urine Nitrite Negative (Negative) Urine Bilirubin 1+ H (Negative) Urine Urobilinogen 4.0 (<2.0) mg/dL Ur Leukocyte Esterase Negative (Negative) Urine RBC 1 (0-5) /hpf Urine WBC 5 (0-5) /hpf Ur Squamous Epith Cells <1 (0-4) /hpf Urine Mucus Many H (None) /hpf Influenza Type A RNA (Not Detectd) Influenza Type B (PCR) (Not Detectd) - EKG Data -: EKG Interpreted by Me EKG shows normal: sinus rhythm (424 low-voltage no acute ST-T wave changes) - Radiology Data Radiology results: report reviewed (I did review the imaging and report no acute findings.), image reviewed Disposition Clinical Impression: Fever of unknown origin (FUO), Dehydration, Failure to thrive Disposition: ADMITTED IP TO THIS HOSP Condition: Fair Referrals: Carolina Petersen MD [Primary Care Provider] - 1-2 days
--- NOTE | 2019-12-13 16:31 | XR ---
EXAMINATION TYPE: XR chest 2V DATE OF EXAM: 12/13/2019 COMPARISON: CT chest August 2019. Prior chest x-ray June 16, 2017 HISTORY: Fever. History of esophageal cancer. TECHNIQUE: Frontal and 2 lateral views of the chest are obtained. FINDINGS: There is background chronic emphysematous change without suspicious new focal air space op acity, pleural effusion, or pneumothorax seen. The cardiac silhouette size remains within normal [place] its. Surgical changes from gastric pull up procedure retrocardiac region noted with clips identified on lateral view. Overlying EKG leads are present. The osseous structures are intact. IMPRESSION: Chronic changes without suspicious new acute pulmonary process.
[2019-12-13 16:52] LABS: Basophils % (A) 0 %; Eosinophils # (A) 0.1 k/uL (0-0.7); Eosinophils % (A) 0 %; HCT 38.6 % (39.0-53.0); HGB 12.1 gm/dL (13.0-17.5); Lymphocytes # (A) 0.4 k/uL (1.0-4.8); Lymphocytes % (A) 4 %; MCH 28.7 pg (25.0-35.0); MCHC 31.4 g/dL (31.0-37.0); MCV 91.4 fL (80.0-100.0); Mean Platelet Volume 6.7; Monocytes # (A) 0.9 k/uL (0-1.0); Monocytes % (A) 7 %; Neutrophils # (A) 10.8 k/uL (1.3-7.7); Neutrophils % (A) 88 %; Platelet Count 478 k/uL (150-450); RBC 4.23 m/uL (4.30-5.90); RDW 11.9 % (11.5-15.5); WBC 12.4 k/uL (3.8-10.6)
[2019-12-13 17:05] LABS: ALT 26 U/L (4-49); AST 44 U/L (17-59); African American GFR (CKD) >90 (>60 ml/min/1.73 sqM); Albumin 3.1 g/dL (3.5-5.0); Alkaline Phosphatase 83 U/L (38-126); Anion Gap 9 mmol/L; Blood Urea Nitrogen 12 mg/dL (9-20); Calcium 8.6 mg/dL (8.4-10.2); Carbon Dioxide 26 mmol/L (22-30); Chloride 97 mmol/L (98-107); Creatine Kinase 30 U/L (55-170); Glucose 115 mg/dL (74-99); Non-African American GFR(CKD) >90 (>60 ml/min/1.73 sqM); Potassium 4.7 mmol/L (3.5-5.1); Sodium 132 mmol/L (137-145); Total Bilirubin 0.6 mg/dL (0.2-1.3); Total Protein 6.3 g/dL (6.3-8.2)
[2019-12-13] MEDS ORDERED: cefTRIAXone IN SWFI 1,000 MG/10 ML SYRINGE IVP STA (17:42)
[2019-12-13 18:20] LABS: Appearance,Urine Cloudy (Clear); Bilirubin,Urine 1+ (Negative); Blood,Urine Negative (Negative); Color,Urine Yellow; Glucose,Urine (UA) Negative (Negative); Ketones,Urine 3+ (Negative); Leukocyte Esterase,Urine Negative (Negative); Mucus,Urine Many /hpf; Nitrite,Urine Negative (Negative); PH, Urine 5.5 (5.0-8.0); Protein,Urine 1+ (Negative); RBC,Urine 1 /hpf (0-5); Specific Gravity,Urine 1.028 (1.001-1.035); Squamous Epithelial Cell,Urine <1 /hpf (0-4); WBC,Urine 5 /hpf (0-5)
[2019-12-13] MEDS ORDERED: NALOXONE 0.4 MG/ML 1 ML VIAL IV PRN (18:28)
[2019-12-13] MEDS ORDERED: ALBUTEROL NEBULIZED 2.5 MG/3 ML INHALATION PRN (18:31)
[2019-12-13] MEDS: SODIUM CHLORIDE 0.9% 1,000 ML IV SCH (18:52)
[2019-12-13] MEDS ORDERED: ALBUTEROL NEBULIZED 2.5 MG/3 ML INHALATION SCH (20:00)
[2019-12-13] MEDS ORDERED: IPRATROPIUM 0.5 MG/2.5 ML NEBU INHALATION SCH (20:00)
[2019-12-13] MEDS: SYMBICORT 160-4.5 MCG INHALER INHALATION SCH (20:24)
[2019-12-13] MEDS: DEXAMETHASONE 0.5 MG TAB PO SCH ×3 (21:27→21:29)
[2019-12-14] MEDS: SODIUM CHLORIDE 0.9% 1,000 ML IV SCH ×4 (00:30→22:11)
[2019-12-14] MEDS: ACETAMINOPHEN TAB 325 MG TAB PO PRN (03:14)
[2019-12-14] MEDS: IPRATROPIUM-ALBUTEROL 3 ML NEB INHALATION SCH ×4 (07:25→19:30)
[2019-12-14 07:27] LABS: Basophils % (A) 0 %; Eosinophils % (A) 0 %; HGB 10.1 gm/dL (13.0-17.5); Lymphocytes # (A) 0.7 k/uL (1.0-4.8); Lymphocytes % (A) 7 %; MCH 29.8 pg (25.0-35.0); MCHC 32.6 g/dL (31.0-37.0); MCV 91.4 fL (80.0-100.0); Mean Platelet Volume 6.7; Monocytes # (A) 0.6 k/uL (0-1.0); Monocytes % (A) 5 %; Neutrophils # (A) 9.1 k/uL (1.3-7.7); Neutrophils % (A) 85 %; Platelet Count 443 k/uL (150-450); RBC 3.39 m/uL (4.30-5.90); RDW 11.9 % (11.5-15.5); WBC 10.6 k/uL (3.8-10.6)
--- NOTE | 2019-12-14 07:45 | XR ---
EXAMINATION TYPE: XR chest 1V portable DATE OF EXAM: 12/14/2019 CLINICAL HISTORY: Fever, rule out covid. History of esophageal cancer. TECHNIQUE: 2 AP portable frontal upright views of the chest are obtained. COMPARISON: Chest x-ray from one day earlier. CT chest August 11, 2019. FINDINGS: Background chronic emphysematous change without suspicious new focal airspace opacity, ple ural effusion, or pneumothorax seen bilaterally. Cardiac silhouette size stable and within normal [place] its. Retrocardiac opacity from gastric pull-up procedure redemonstrated. Osseous structures are intac t. IMPRESSION: Overall stable findings, chronic emphysematous change without new suspicious acute pulm onary process.
[2019-12-14] MEDS: BALSALAZIDE DISODIUM 750 MG CAPSULE PO SCH ×2 (08:25→18:06)
[2019-12-14] MEDS: DEXAMETHASONE 0.5 MG TAB PO SCH ×4 (08:26→21:15)
[2019-12-14] MEDS: FERROUS SULFATE 325 MG TAB PO SCH (08:26)
--- NOTE | 2019-12-14 11:04 | P.HPIM ---
History of Present Illness this is a pleasant 64 years old male with past medical history of COPD, esophageal cancer status post chemo and radiotherapy in 2017.patient presents because of feeling weak and diarrhea with blood per rectum for the last few weeks. He says that he has watery bowel movementsevery 1 hour at night and less frequent during the daytime, and as mentioned above it has watery and blood in it. Associated with mild left lower quadrant abdominal pain and fever. Also patient feeling extremely exhausted and weak, he has low appetite with mild headache. No neck pain or stiffness. No specific weakness in extremities. No numbness. No dyspnea, no coughing, no wheezing no sore throat. However he has painful ulcer in his left cheek patient denies Sick contact.he denies smoking, alcohol or illicit drugs. Patient has no ports were IV line. No rash on admission he had a fever of 103.3, blood pressure low-normal 99/63. WBC is 10.6 K however it was 12.4 K on admission, hemoglobin 10.1, platelets within normal limits. Urinalysis showed no signs of infection. C. diff is negative. Sodium 132, lactic acid 2.8 compared to normal 1.3. Chest x-ray shows stable chronic findings with no suspicious acute pulmonary processes per ra diologist.EKG showing sinus tachycardia [address]-T changes. On admission patient received 3 L of normal saline and started at 130 mL/h influenza was negative as well as C. diff, brunson virus tested and the result is pending and infectious disease was consulted Review of Systems CONSTITUTIONAL: No fever, no malaise, no fatigue. HEENT: No recent visual problems or hearing problems. Denied any sore throat. CARDIOVASCULAR: No orthopnea, PND, no palpitations, no syncope. PULMONARY: No shortness of breath, no cough, no hemoptysis. GASTROINTESTINAL: No diarrhea, no nausea, no vomiting, no abdominal pain. Normoactive bowel sounds. NEUROLOGICAL: No headaches, no weakness, no numbness. HEMATOLOGICAL: Denies any bleeding or petechiae. GENITOURINARY: Denies any burning micturition, frequency, or urgency. MUSCULOSKELETAL/RHEUMATOLOGICAL: Denies any joint pain, swelling, or any muscle pain. ENDOCRINE: Denies any polyuria or polydipsia. Past Medical History Past Medical History: Cancer, COPD, Pneumonia Additional Past Medical History / Comment(s): esophageal cancer, finished radiation 2016, chemo finished 2016 History of Any Multi-Drug Resistant Organisms: None Reported Additional Past Surgical History / Comment(s): EGD Additional Past Anesthesia/Blood Transfusion Reaction / Comment(s): halluc ination post op Past Psychological History: No Psychological Hx Reported Smoking Status: Former smoker Past Alcohol Use History: None Reported Past Drug Use History: None Reported - Past Family History Sister(s) Family Medical History: Cancer Brother(s) Family Medical History: Cancer Medications and Allergies Home Medications Medication Instructions Recorded Confirmed Type Albuterol Nebulized [Ventolin 2.5 mg INHALATION RT-QID 03/14/17 12/13/19 History Nebulized] Albuterol Inhaler [Ventolin Hfa 2 puff INHALATION RT-Q6H PRN 12/13/19 12/13/19 History Inhaler] Balsalazide Disodium [Colazal] 2,250 mg PO BID-W/MEALS 12/13/19 12/13/19 History Budesonide/Formoterol Fumarate 1 puff INHALATION RT-BID 12/13/19 12/13/19 History [Symbicort 160-4.5 Mcg Inhaler] Dexamethasone [Decadron Elixir] 0.5 mg PO QID 12/13/19 12/13/19 History Ferrous Sulfate [Feosol] 325 mg PO DAILY 12/13/19 12/13/19 History HYDROcodone/APAP 5-325MG [[place] 1 tab PO DAILY PRN 12/13/19 12/13/19 History 5-325] Ipratropium Nebulized [Atrovent 0.5 mg INHALATION RT-QID 12/13/19 12/13/19 History Nebulized 0.2 MG/ML] LORazepam [Ativan] 1 mg PO TID PRN 12/13/19 12/13/19 History Allergies Allergy/AdvReac Type Severity Reaction Status Date / Time No Known Allergies Allergy Verified 12/13/19 17:13 Physical Exam Vitals: Vital Signs Temp Pulse Pulse Resp BP BP Pulse Ox 12/14/19 07:37 92 12/14/19 07:27 90 12/14/19 07:00 98.0 F 82 16 99/63 95 12/14/19 04:26 100.3 F H 12/14/19 02:35 102.8 F H 106 H 100/59 94 L 12/13/19 20:35 98 12/13/19 20:17 96 20 12/13/19 20:10 99.6 F 109 H 91/53 94 L 12/13/19 18:31 96 16 97/63 98 12/13/19 18:11 99.8 F H 106 H 16 95/67 99 12/13/19 16:50 103.2 F H 111 H 16 107/64 96 12/13/19 16:00 24 12/13/19 15:56 103.3 F H 123 H 20 123/78 98 Intake and Output 12/13/19 12/14/19 12/14/19 22:59 06:59 14:59 Intake Total 1040 Output Total 60 Balance -60 1040 Intake: IV 1040 Sodium Chloride 0.9% 1, 1040 000 ml @ 130 mls/hr IV . Q7H42M [facility] Rx#:[id number] Output: Urine 60 Straight 60 Other: # Voids 1 # Bowel Movements 1 Weight 58.967 kg -GENERAL: The patient is alert and oriented x3, not in any acute distress. Well developed, well nourished. generally weak -HEENT: Pupils are round and equally reacting to light. EOMI. No scleral icterus. No conjunctival pallor. Normocephalic, atraumatic. No pharyngeal erythema. No thyromegaly. left cheek mouth ulcer less than half an inch in diameter CARDIOVASCULAR: S1 and S2 present. No murmurs, rubs, or gallops. PULMONARY: Chest is clear to auscultation, no wheezing or crackles. -ABDOMEN: Soft, LLQ tenderness, no rebound tenderness or guarding, nondistended, normoactive bowel sounds. No palpable organomegaly. MUSCULOSKELETAL: No joint swelling or deformity. EXTREMITIES: No cyanosis, clubbing, or pedal edema. NEUROLOGICAL: Gross neurological examination did not reveal any focal deficits. meningeal signs are absent SKIN: No rashes. No petechiae Results CBC & Chem 7: 12/14/19 06:44 12/13/19 16:42 Labs: Abnormal Lab Results - Last 24 Hours (Table) 12/13/19 12/13/19 12/13/19 Range/Units 16:42 16:42 16:42 WBC 12.4 H (3.8-10.6) k/uL RBC 4.23 L (4.30-5.90) m/uL Hgb 12.1 L (13.0-17.5) gm/dL Hct 38.6 L (39.0-53.0) % Plt Count 478 H (150-450) k/uL Neutrophils # 10.8 H (1.3-7.7) k/uL Lymphocytes # 0.4 L (1.0-4.8) k/uL Sodium 132 L (137-145) mmol/L Chloride 97 L (98-107) mmol/L Glucose 115 H (74-99) mg/dL Plasma Lactic Acid Brandon 2.8 H* (0.7-2.0) mmol/L Creatine Kinase 30 L (55-170) U/L Albumin 3.1 L (3.5-5.0) g/dL Urine Protein (Negative) Urine Ketones (Negative) Urine Bilirubin (Negative) Urine Mucus (None) /hpf 12/13/19 12/14/19 Range/Units 18:05 06:44 WBC (3.8-10.6) k/uL RBC 3.39 L (4.30-5.90) m/uL Hgb 10.1 L (13.0-17.5) gm/dL Hct 31.0 L (39.0-53.0) % Plt Count (150-450) k/uL Neutrophils # 9.1 H (1.3-7.7) k/uL Lymphocytes # 0.7 L (1.0-4.8) k/uL Sodium (137-145) mmol/L Chloride (98-107) mmol/L Glucose (74-99) mg/dL Plasma Lactic Acid Brandon (0.7-2.0) mmol/L Creatine Kinase (55-170) U/L Albumin (3.5-5.0) g/dL Urine Protein 1+ H (Negative) Urine Ketones 3+ H (Negative) Urine Bilirubin 1+ H (Negative) Urine Mucus Many H (None) /hpf Thrombosis Risk Factor Assmnt - Choose All That Apply Each Factor Represents 1 point: Abnormal pulmonary function (COPD) Each Risk Factor Represents 2 Points: Age 61-74 years Thrombosis Risk Factor Assessment Total Risk Factor Score: 3 Thrombosis Risk Factor Assessment Level: Moderate Risk Assessment and Plan Assessment: acute gastroenteritis with watery and bloody diarrhea and LLQ tenderness left Cheek aphthous ulcer severe sepsis with SIRS criteria of leukocytosis and fever Hypotension height lactic acid came back to normal History of esophageal cancer status post chemoradiotherapy in 2017 COPD acute exacerbation Plan: this is a pleasant 64 years old male who presents with fever and sepsis and gastroenteritis.continue with IV fluid and increase the rate to 200 mL per hour, start the patient on Levaquin and Flagyl,infectious disease service was already consulted. Check procalcitonin. Check inflammatory markers. We'll do a CAT scan of the abdomenwith oral contrast. Follow-up SARS Saad result. Follow-up blood culture. Send stool culture . Swish and spit and topical treatment for his mouth also Labs and medication were reviewed.. Continue same treatment. Continue with symptomatic treatment. Resume home medication. Monitor lytes and vitals. DVT and GI prophylaxis. Further recommendations of the clinical course of the patient DVT prophylaxis: no heparin in view of possible GI bleed GI Prophylaxis: Ppi PT/OT: Pending Prognosis is guarded
[2019-12-14] MEDS: metroNIDAZOLE-NS PMX 500 MG in SALINE 1 100ML.BAG IVPB SCH ×3 (11:28→23:32)
[2019-12-14] MEDS: LEVOFLOXACIN 500MG-D5W PMX 500 MG in DEXTROSE/WATER 1 100ML.BAG IVPB SCH ×2 (11:28→12:44)
[2019-12-14] MEDS: IOPAMIDOL CONTRAST (ORAL USE) VIAL PO PRN ×2 (11:28→12:43)
[2019-12-14] MEDS: BENZOCAINE/MENTHOL LOZENG 1 EACH LOZENGE MUCOUS MEM PRN (12:44)
[2019-12-14] MEDS: BENZOCAINE 20 % GEL 15 GM TUBE MM SCH ×3 (12:44→21:15)
--- NOTE | 2019-12-14 13:44 | CT ---
EXAMINATION TYPE: CT abdomen pelvis wo con DATE OF EXAM: 12/14/2019 HISTORY: possible gastroenteritis . History of distal esophageal neoplasm. CT DLP: 404.5 mGycm. Automated Exposure Control for Dose Reduction was Utilized. TECHNIQUE: CT scan of the abdomen and pelvis is performed with oral but without IV contrast. COMPARISON: CT January 13, 2019 and older CTs FINDINGS: Within the limitations of a non-contrast study, the following observations are made. LUNG BASES: No significant abnormality is appreciated. LIVER/GB: Liver is heterogeneously hypodense suggesting diffuse fatty infiltration. PANCREAS: Mild to moderate generalized atrophy towards the distal body and tail. SPLEEN: Scattered calcifications consistent with old granulomatous disease throughout the spleen are redemonstrated. ADRENALS: No significant abnormality is seen. KIDNEYS: No renal calculi or hydronephrosis seen bilaterally. BOWEL: Oral contrast to the level of the proximal transverse colon making evaluation of distal bowel slightly suboptimal. Surgical change at the diaphragmatic hiatus with gastric pull-up partially image d. No suspicious small bowel dilatation low dense material in the cecum favors mix of fecal debris no t penetrated by oral contrast versus true lesion as is new from most recent CT January 13, 2019 there is moderate amount of fecal prominence in the mid transverse colon. There is moderate to severe wall th ickening in the left colon extension into the sigmoid colon and rectum. There is surrounding mild-to- moderate fat stranding noted at level of sigmoid colon and rectum. Mild fat stranding at level of lef t colon noted. No well-formed fluid collection or abscess seen. No pneumoperitoneum present. No mesen teric air identified. GENITAL ORGANS: No gross abnormality seen. LYMPH NODES: No greater than 1cm abdominal or pelvic lymph nodes are appreciated. OSSEOUS STRUCTURES: Mild disc space narrowing near the thoracolumbar junction. Facet arthropathy lowe r lumbar levels. OTHER: Mild calcified plaque of the aorta extends into branch vessels IMPRESSION: Fairly moderate to severe recurrent new long segment acute coli as from level of splenic flexure through the rectum. Differential includes infectious, inflammatory, and ischemic etiologies. Correlate clinically. Overall nonobstructive bowel gas pattern. Moderate mid colonic fecal stasis not ed.
[2019-12-14 14:14] VITALS: BMI 18.6
[2019-12-14] MEDS: SALT AND SODA MOUTHWASH 1,000 ML PO SCH ×3 (15:58→21:13)
[2019-12-14 15:59] LABS: Ferritin 203.2 ng/mL (22.0-322.0)
[2019-12-14] MEDS: HYDROcodone/APAP 5-325MG 1 EACH TAB PO PRN (18:12)
[2019-12-14] MEDS: SYMBICORT 160-4.5 MCG INHALER INHALATION SCH (19:30)
--- NOTE | 2019-12-14 21:44 | P.CONS ---
History of Present Illness - Reason for Consult Consult date: 12/14/19 FUO Requesting physician: Rafi E Sheet - Chief Complaint weakness and diarrhea x 1 month - History of Present Illness Patient is a 64-year-old male with a past medical he significant for esophageal cancer in this patient who status post esophagectomy and gastric pull-through in 2018 patient has been brought to the [facility] ER yesterday with chief complaints of generalized weakness and shortness of breath patient still has been suffering from diarrhea that has been going on for almost a month patient did have multiple bowel meds movements loose and started having some blood in it patient complains of some left lower abdominal pain more of a dull aching with intensity could be 5-6 out of 10 and no radiation patient has been nauseated but no vomiting and did have poor oral intake patient denies having a headache no URI symptoms no chest pain has been complaining of shortness of breath last few days cough which has been chronic for him and no worsening no sputum production no urinary symptoms with the symptom the patient was evaluated by ER physician on arrival to the ER patient was noticed to have a fever of 103.3 F patient was tachycardic with heart rate of 123 he did have vital of 12.4 yesterday this is her normal history 0.6 today patient urine was negative stool for occult blood was negative influenza and brunson PCR were negative , chest x-ray negative for any acute infiltrate patient was admitted to the hospital patient was consulted with concern for possible fever of unknown origin. Review of Systems Positive point has been mentioned in HPI rest of the systems are negative Past Medical History Past Medical History: Cancer, COPD, Pneumonia Additional Past Medical History / Comment(s): esophageal cancer, finished radiation 2016, chemo finished 2016 History of Any Multi-Drug Resistant Organisms: None Reported Additional Past Surgical History / Comment(s): EGD Additional Past Anesthesia/Blood Transfusion Reaction / Comm: hallucination post op Past Psychological History: No Psychological Hx Reported Smoking Status: Former smoker Past Alcohol Use History: None Reported Past Drug Use History: None Reported - Past Family History Sister(s) Family Medical History: Cancer Brother(s) Family Medical History: Cancer Medications and Allergies Home Medications Medication Instructions Recorded Confirmed Type Albuterol Nebulized [Ventolin 2.5 mg INHALATION RT-QID 03/14/17 12/13/19 History Nebulized] Albuterol Inhaler [Ventolin Hfa 2 puff INHALATION RT-Q6H PRN 12/13/19 12/13/19 History Inhaler] Balsalazide Disodium [Colazal] 2,250 mg PO BID-W/MEALS 12/13/19 12/13/19 History Budesonide/Formoterol Fumarate 1 puff INHALATION RT-BID 12/13/19 12/13/19 History [Symbicort 160-4.5 Mcg Inhaler] Dexamethasone [Decadron Elixir] 0.5 mg PO QID 12/13/19 12/13/19 History Ferrous Sulfate [Feosol] 325 mg PO DAILY 12/13/19 12/13/19 History HYDROcodone/APAP 5-325MG [[place] 1 tab PO DAILY PRN 12/13/19 12/13/19 History 5-325] Ipratropium Nebulized [Atrovent 0.5 mg INHALATION RT-QID 12/13/19 12/13/19 History Nebulized 0.2 MG/ML] LORazepam [Ativan] 1 mg PO TID PRN 12/13/19 12/13/19 History Allergies Allergy/AdvReac Type Severity Reaction Status Date / Time No Known Allergies Allergy Verified 12/13/19 17:13 Physical Exam Vitals: Vital Signs Temp Pulse Pulse Resp BP BP Pulse Ox 12/14/19 07:37 92 12/14/19 07:27 90 12/14/19 07:00 98.0 F 82 16 99/63 95 12/14/19 04:26 100.3 F H 12/14/19 02:35 102.8 F H 106 H 100/59 94 L 12/13/19 20:35 98 12/13/19 20:17 96 20 12/13/19 20:10 99.6 F 109 H 91/53 94 L 12/13/19 18:31 96 16 97/63 98 12/13/19 18:11 99.8 F H 106 H 16 95/67 99 12/13/19 16:50 103.2 F H 111 H 16 107/64 96 12/13/19 16:00 24 12/13/19 15:56 103.3 F H 123 H 20 123/78 98 Intake and Output 12/13/19 12/14/19 12/14/19 22:59 06:59 14:59 Intake Total 1040 Output Total 60 Balance -60 1040 Intake: IV 1040 Sodium Chloride 0.9% 1, 1040 000 ml @ 130 mls/hr IV . Q7H42M [facility] Rx#:[id number] Output: Urine 60 Straight 60 Other: # Voids 1 # Bowel Movements 1 Weight 58.967 kg GENERAL DESCRIPTION: Middle-aged male lying in bed, no distress. No tachypnea or accessory muscle of respiration use. HEENT: Shows Pallor , no scleral icterus. Oral mucous membrane is dry. NECK: Trachea central, no thyromegaly. LUNGS: Unlabored breathing. Clear to auscultation anteriorly. No wheeze or crackle. HEART: S1, S2, regular rate and rhythm. ABDOMEN: Soft, mild left lower quadrant tenderness , guarding or rigidity EXTREMITIES: No edema of feet. SKIN: No rash, no masses palpable. NEUROLOGICAL: The patient is awake, alert, oriented x3, mood and affect normal. Results CBC & Chem 7: 12/14/19 06:44 12/13/19 16:42 Labs: Abnormal Lab Results - Last 24 Hours (Table) 12/13/19 12/13/19 12/13/19 Range/Units 16:42 16:42 16:42 WBC 12.4 H (3.8-10.6) k/uL RBC 4.23 L (4.30-5.90) m/uL Hgb 12.1 L (13.0-17.5) gm/dL Hct 38.6 L (39.0-53.0) % Plt Count 478 H (150-450) k/uL Neutrophils # 10.8 H (1.3-7.7) k/uL Lymphocytes # 0.4 L (1.0-4.8) k/uL Sodium 132 L (137-145) mmol/L Chloride 97 L (98-107) mmol/L Glucose 115 H (74-99) mg/dL Plasma Lactic Acid Brandon 2.8 H* (0.7-2.0) mmol/L Creatine Kinase 30 L (55-170) U/L C-Reactive Protein (<10.0) mg/L Albumin 3.1 L (3.5-5.0) g/dL Urine Protein (Negative) Urine Ketones (Negative) Urine Bilirubin (Negative) Urine Mucus (None) /hpf 12/13/19 12/14/19 12/14/19 Range/Units 18:05 06:44 06:44 WBC (3.8-10.6) k/uL RBC 3.39 L (4.30-5.90) m/uL Hgb 10.1 L (13.0-17.5) gm/dL Hct 31.0 L (39.0-53.0) % Plt Count (150-450) k/uL Neutrophils # 9.1 H (1.3-7.7) k/uL Lymphocytes # 0.7 L (1.0-4.8) k/uL Sodium (137-145) mmol/L Chloride (98-107) mmol/L Glucose (74-99) mg/dL Plasma Lactic Acid Brandon (0.7-2.0) mmol/L Creatine Kinase (55-170) U/L C-Reactive Protein 227.4 H (<10.0) mg/L Albumin (3.5-5.0) g/dL Urine Protein 1+ H (Negative) Urine Ketones 3+ H (Negative) Urine Bilirubin 1+ H (Negative) Urine Mucus Many H (None) /hpf Assessment and Plan Assessment: -patient admitted to hospital with sepsis in this patient who did have a fever tachycardia elevated white count source likely abdominal in this patient complaining of diarrhea with some bleeding per rectum with question of possible diverticulitis versus colitis of other etiology patient did not give any history of recent antibiotic exposure and a stool for C. difficile is negative (1) Sepsis Current Visit: Yes Status: Acute Code(s): A41.9 - SEPSIS, UNSPECIFIED ORGANISM SNOMED Code(s): 91945809 (2) Colitis Current Visit: Yes Status: Acute Code(s): K52.9 - NONINFECTIVE GAS TROENTERITIS AND COLITIS, UNSPECIFIED SNOMED Code(s): 96789527 Plan: 1-await CT of abdominal pelvis which has been ordered this morning and the patient is currently getting bowel prep 2-discontinue Levaquin 3-start the patient on Rocephin 2 g daily and continue with the Flagyl 500 every 8 hour 4-obtain stool cultures We will follow on clinical condition and cultures to further adjust medication if needed Thank you for this consultation we will follow the patient along with you Time with Patient: Greater than 30
[2019-12-14] MEDS: LORazepam 1 MG TAB PO PRN (23:35)
[2019-12-15] MEDS: SODIUM CHLORIDE 0.9% 1,000 ML IV SCH ×5 (02:44→21:33)
[2019-12-15] MEDS: IPRATROPIUM-ALBUTEROL 3 ML NEB INHALATION SCH ×4 (07:12→20:23)
[2019-12-15] MEDS: SYMBICORT 160-4.5 MCG INHALER INHALATION SCH ×2 (07:13→20:23)
[2019-12-15 07:30] LABS: Basophils % (A) 0 %; Eosinophils % (A) 0 %; HCT 33.4 % (39.0-53.0); HGB 10.6 gm/dL (13.0-17.5); Hypochromasia Slight; Lymphocytes # (A) 0.6 k/uL (1.0-4.8); Lymphocytes % (A) 5 %; MCH 29.3 pg (25.0-35.0); MCHC 31.7 g/dL (31.0-37.0); MCV 92.3 fL (80.0-100.0); Monocytes # (A) 0.5 k/uL (0-1.0); Monocytes % (A) 5 %; Neutrophils # (A) 9.1 k/uL (1.3-7.7); Neutrophils % (A) 88 %; Platelet Count 565 k/uL (150-450); RBC 3.62 m/uL (4.30-5.90); RDW 12.2 % (11.5-15.5); WBC 10.4 k/uL (3.8-10.6)
[2019-12-15 07:54] LABS: African American GFR (CKD) >90 (>60 ml/min/1.73 sqM); Anion Gap 8 mmol/L; Blood Urea Nitrogen 7 mg/dL (9-20); Calcium 8.2 mg/dL (8.4-10.2); Carbon Dioxide 23 mmol/L (22-30); Chloride 105 mmol/L (98-107); Glucose 103 mg/dL (74-99); Magnesium 2.1 mg/dL (1.6-2.3); Non-African American GFR(CKD) >90 (>60 ml/min/1.73 sqM); Potassium 4.4 mmol/L (3.5-5.1); Sodium 136 mmol/L (137-145)
[2019-12-15] MEDS: DEXAMETHASONE 0.5 MG TAB PO SCH ×4 (08:45→21:32)
[2019-12-15] MEDS: BENZOCAINE 20 % GEL 15 GM TUBE MM SCH ×4 (08:45→21:31)
[2019-12-15] MEDS: FERROUS SULFATE 325 MG TAB PO SCH (08:45)
[2019-12-15] MEDS: metroNIDAZOLE-NS PMX 500 MG in SALINE 1 100ML.BAG IVPB SCH ×3 (08:45→22:46)
[2019-12-15] MEDS: BALSALAZIDE DISODIUM 750 MG CAPSULE PO SCH ×3 (08:45→16:04)
[2019-12-15] MEDS: SALT AND SODA MOUTHWASH 1,000 ML PO SCH ×4 (08:46→22:37)
[2019-12-15] MEDS: ONDANSETRON 4 MG/2 ML VIAL IVP PRN (12:30)
--- NOTE | 2019-12-15 13:00 | P.PN ---
Subjective this is a pleasant 64 years old male with past medical history of COPD, esophageal cancer status post chemo and radiotherapy in 2017.patient presents because of feeling weak and diarrhea with blood per rectum for the last few weeks. He says that he has watery bowel movementsevery 1 hour at night and less frequent during the daytime, and as mentioned above it has watery and blood in it. Associated with mild left lower quadrant abdominal pain and fever. Also patient feeling extremely exhausted and weak, he has low appetite with mild headache. No neck pain or stiffness. No specific weakness in extremities. No numbness. No dyspnea, no coughing, no wheezing no sore throat. However he has painful ulcer in his left cheek patient denies Sick contact.he denies smoking, alcohol or illicit drugs. Patient has no ports were IV line. No rash on admission he had a fever of 103.3, blood pressure low-normal 99/63. WBC is 10.6 K however it was 12.4 K on admission, hemoglobin 10.1, platelets within normal limits. Urinalysis showed no signs of infection. C. diff is negative. Sodium 132, lactic acid 2.8 compared to normal 1.3. Chest x-ray shows stable chronic findings with no suspicious acute pulmonary processes per radiologist.EKG showing sinus tachycardia [address]-T changes. On admission patient received 3 L of normal saline and started at 130 mL/h influenza was negative as well as C. diff, brunson virus tested and the result is pending and infectious disease was consulted 12/15/2019 Patient had frequent bowel movement today about 3 to 4 times early this morning associated with nausea and vomiting. Physical pressure still on the low side 94/61, he is on normal saline at 200 mL/h however at bedside was running at 1 30 mL/h, discussed with staff and follow blood pressure. Zofran is also added Clovis Roche looks stable.no change in his labs from today compared to yesterday including CBC and BMP Stool at different is positive, occult blood in the stool is negative, C. diff is negative we'll consult surgery team for his left-sided colitis Review of systems CONSTITUTIONAL: No fever, no malaise, no fatigue. HEENT: No recent visual problems or hearing problems. Denied any sore throat. CARDIOVASCULAR: No orthopnea, PND, no palpitations, no syncope. NEUROLOGICAL: No headaches, no weakness, no numbness. HEMATOLOGICAL: Denies any bleeding or petechiae. GENITOURINARY: Denies any burning micturition, frequency, or urgency. MUSCULOSKELETAL/RHEUMATOLOGICAL: Denies any joint pain, swelling, or any muscle pain. ENDOCRINE: Denies any polyuria or polydipsia. Active Medications Generic Name Dose Route Start Last Admin Trade Name Freq PRN Reason Stop Dose Admin Acetaminophen 650 mg 12/13/19 18:28 12/14/19 03:14 Tylenol Tab PO 650 mg Q6HR PRN Administration Mild Pain or Fever > 100.5 Hydrocodone Bitart/Acetaminophen 1 each 12/13/19 18:31 12/14/19 18:12 [place] 5-325 PO 1 each DAILY PRN Administration Pain Albuterol Sulfate 2.5 mg 12/13/19 18:31 Ventolin Nebulized INHALATION RT-Q6H PRN Shortness Of Breath Albuterol/Ipratropium 3 ml 12/14/19 08:00 12/15/19 11:14 Duoneb 0.5 Mg-3 Mg/3 Ml Soln INHALATION Not Given RT-QID KEREN Balsalazide 2,250 mg 12/14/19 07:30 12/15/19 08:49 Colazal PO Not Given BID-W/MEALS KEREN Benzocaine 0.5 gm 12/14/19 13:00 12/15/19 12:30 Orajel MM 0.5 gm QID KEREN Administration Benzocaine/Menthol 1 each 12/14/19 11:35 12/14/19 12:44 Cepacol Lozenge MUCOUS MEM 1 each Q4HR PRN Administration Sore Throat Budesonide/Formoterol Fumarate 1 puff 12/13/19 20:00 12/15/19 07:13 Symbicort 160-4.5 Mcg Inhaler INHALATION 1 puff RT-BID KEREN Administration Dexamethasone 0.5 mg 12/13/19 22:00 12/15/19 12:30 Hexadrol PO 0.5 mg QID KEREN Administration Ferrous Sulfate 325 mg 12/14/19 09:00 12/15/19 08:45 Feosol PO 325 mg DAILY KEREN Administration Sodium Chloride 1,000 mls @ 200 mls/hr 12/13/19 18:30 12/15/19 08:45 Saline 0.9% IV 200 mls/hr .Q5H KEREN Administration Metronidazole 500 mg/ IV 100 mls @ 100 mls/hr 12/14/19 11:00 12/15/19 08:45 Solution IVPB 100 mls/hr Q8HR KEREN Administration Ceftriaxone Sodium 2 gm/ 50 mls @ 100 mls/hr 12/14/19 22:00 12/14/19 22:10 Sodium Chloride IVPB 100 mls/hr Q24H KEREN Administration Lorazepam 1 mg 12/13/19 18:31 12/14/19 23:35 Ativan PO 1 mg TID PRN Administration Anxiety Naloxone HCl 0.2 mg 12/13/19 18:28 Narcan IV Q2M PRN Opioid Reversal Ondansetron HCl 4 mg 12/15/19 11:52 12/15/19 12:30 Zofran IVP 4 mg Q6HR PRN Administration Nausea And Vomiting Sodium Bicarbonate 5 ml 12/14/19 13:00 12/15/19 12:27 PO Not Given QID [facility] Objective - Vital Signs Vital signs: Vital Signs Temp 96.8 F L 12/15/19 07:00 Pulse 82 12/15/19 07:26 Resp 18 12/15/19 07:00 BP 94/61 12/15/19 07:00 Pulse Ox 100 12/15/19 07:00 Intake & Output 12/14/19 12/15/19 12/15/19 18:59 06:59 18:59 Intake Total 1140 Balance 1140 Weight 58.967 kg Intake: IV 1140 Sodium Chloride 0.9% 1, 1040 000 ml @ 200 mls/hr IV . Q5H [facility] Rx#:[id number] metroNIDAZOLE-NS PMX 500 100 mg In Saline 1 100ml.bag @ 100 mls/hr IVPB Q8HR [facility] Rx#:[id number] Other: # Voids 3 - Exam -GENERAL: The patient is alert and oriented x3, not in any acute distress. Well developed, well nourished. generally weak -HEENT: Pupils are round and equally reacting to light. EOMI. No scleral icterus. No conjunctival pallor. Normocephalic, atraumatic. No pharyngeal erythema. No thyromegaly. left cheek mouth ulcer less than half an inch in diameter CARDIOVASCULAR: S1 and S2 present. No murmurs, rubs, or gallops. PULMONARY: Chest is clear to auscultation, no wheezing or crackles. -ABDOMEN: Soft, LLQ tenderness, no rebound tenderness or guarding, nondistended, normoactive bowel sounds. No palpable organomegaly. MUSCULOSKELETAL: No joint swelling or deformity. EXTREMITIES: No cyanosis, clubbing, or pedal edema. NEUROLOGICAL: Gross neurological examination did not reveal any focal deficits. meningeal signs are absent SKIN: No rashes. No petechiae - Labs CBC & Chem 7: 12/15/19 06:37 12/15/19 06:37 Labs: Abnormal Lab Results - Last 24 Hours (Table) 12/14/19 12/14/19 12/14/19 Range/Units 06:44 06:44 14:25 RBC (4.30-5.90) m/uL Hgb (13.0-17.5) gm/dL Hct (39.0-53.0) % Plt Count (150-450) k/uL Neutrophils # (1.3-7.7) k/uL Lymphocytes # (1.0-4.8) k/uL ESR 56 H (0-15) mm/hr Sodium (137-145) mmol/L BUN (9-20) mg/dL Creatinine (0.66-1.25) mg/dL Glucose (74-99) mg/dL Calcium (8.4-10.2) mg/dL Procalcitonin 1.89 H (0.02-0.09) ng/mL Stool Lactoferrin POSITIVE H (NEGATIVE) 12/15/19 12/15/19 Range/Units 06:37 06:37 RBC 3.62 L (4.30-5.90) m/uL Hgb 10.6 L (13.0-17.5) gm/dL Hct 33.4 L (39.0-53.0) % Plt Count 565 H (150-450) k/uL Neutrophils # 9.1 H (1.3-7.7) k/uL Lymphocytes # 0.6 L (1.0-4.8) k/uL ESR (0-15) mm/hr Sodium 136 L (137-145) mmol/L BUN 7 L (9-20) mg/dL Creatinine 0.47 L (0.66-1.25) mg/dL Glucose 103 H (74-99) mg/dL Calcium 8.2 L (8.4-10.2) mg/dL Procalcitonin (0.02-0.09) ng/mL Stool Lactoferrin (NEGATIVE) Microbiology - Last 24 Hours (Table) 12/14/19 14:25 Stool Culture - Preliminary Stool 12/13/19 16:42 Blood Culture - Preliminary Blood No Growth after 24 hours Assessment and Plan Assessment: acute gastroenteritis with watery and bloody diarrhea and LLQ tenderness left Cheek aphthous ulcer severe sepsis with SIRS criteria of leukocytosis and fever Hypotension height lactic acid came back to normal History of esophageal cancer status post chemoradiotherapy in 2017 COPD acute exacerbation Plan: this is a pleasant 64 years old male who presents with fever and sepsis and gastroenteritis.continue with IV fluid and increase the rate to 200 mL per hour, start the patient on ceftriaxoneand Flagyl,infectious disease service was already consulted. consult surgery Follow-up blood culture. Send stool culture . Swish and spit and topical treatment for his mouth also Labs and medication were reviewed.. Continue same treatment. Continue with symptomatic treatment. Resume home medication. Monitor lytes and vitals. DVT and GI prophylaxis. Further recommendations of the clinical course of the patient DVT prophylaxis: no heparin in view of possible GI bleed GI Prophylaxis: Ppi PT/OT: Pending Prognosis is guarded
[2019-12-15] MEDS: HYDROcodone/APAP 5-325MG 1 EACH TAB PO PRN (16:30)
--- NOTE | 2019-12-15 17:03 | PN ---
PROGRESS NOTE DATE OF SERVICE: 12/15/2019 REASON FOR FOLLOWUP: Sepsis and colitis. INTERVAL HISTORY: The patient overall fells better, has improved, no temperature has been recorded in the last 48 hours. The patient is still complaining of diarrhea and left lower abdominal pain, though no chest pain, shortness of breath or cough. PHYSICAL EXAMINATION: Blood pressure 197/58 with a pulse of 77, temperature 97.9. He is 98% on room air. General description is a middle-aged male, lying in bed in no distress. RESPIRATORY SYSTEM: Unlabored breathing, clear to auscultation anteriorly. HEART: S1, S2. Regular rate and rhythm. ABDOMEN: Soft, no tenderness. LABS: Hemoglobin is 10.8, white count of 10.4, BUN of 7, creatinine 0.47. DIAGNOSTIC IMPRESSION AND PLAN: Patient with sepsis, source is colitis, likely infectious etiology and is treated for negative, stool cultures pending. Patient to continue with Rocephin and Flagyl. Continue supportive care. MMODL / IJN: [id number] /
--- NOTE | 2019-12-15 17:30 | P.GSCN ---
History of Present Illness Consult date: 12/15/19 Reason for Consult: Colitis History of present illness: This is a 64-year-old male with multiple medical problems. Patient has had complaints of abdominal pain and diarrhea. Patient recent CAT scan found have evidence of severe colitis of the splenic flexure through rectum. Patient states that he's had some problems with intermittent diarrhea. Patient that his pain is minimal today. He's been managed with Malin. He is able to tolerate a regular diet. Patient's previous history of esophageal cancer. His CAT scan was initially done for workup of gastritis. Past Medical History Past Medical History: Cancer, COPD, Pneumonia Additional Past Medical History / Comment(s): esophageal cancer, finished radiation 2016, chemo finished 2016 History of Any Multi-Drug Resistant Organisms: None Reported Additional Past Surgical History / Comment(s): EGD Additional Past Anesthesia/Blood Transfusion Reaction / Comm: hallucination post op Past Psychological History: No Psychological Hx Reported Smoking Status: Former smoker Past Alcohol Use History: None Reported Past Drug Use History: None Reported - Past Family History Sister(s) Family Medical History: Cancer Brother(s) Family Medical History: Cancer Medications and Allergies Home Medications Medication Instructions Recorded Confirmed Type Albuterol Nebulized [Ventolin 2.5 mg INHALATION RT-QID 03/14/17 12/13/19 History Nebulized] Albuterol Inhaler [Ventolin Hfa 2 puff INHALATION RT-Q6H PRN 12/13/19 12/13/19 History Inhaler] Balsalazide Disodium [Colazal] 2,250 mg PO BID-W/MEALS 12/13/19 12/13/19 History Budesonide/Formoterol Fumarate 1 puff INHALATION RT-BID 12/13/19 12/13/19 Hist ory [Symbicort 160-4.5 Mcg Inhaler] Dexamethasone [Decadron Elixir] 0.5 mg PO QID 12/13/19 12/13/19 History Ferrous Sulfate [Feosol] 325 mg PO DAILY 12/13/19 12/13/19 History HYDROcodone/APAP 5-325MG [Malin 1 tab PO DAILY PRN 12/13/19 12/13/19 History 5-325] Ipratropium Nebulized [Atrovent 0.5 mg INHALATION RT-QID 12/13/19 12/13/19 History Nebulized 0.2 MG/ML] LORazepam [Ativan] 1 mg PO TID PRN 12/13/19 12/13/19 History Allergies Allergy/AdvReac Type Severity Reaction Status Date / Time No Known Allergies Allergy Verified 12/13/19 17:13 Surgical - Exam Vital Signs Temp Pulse Resp BP Pulse Ox 103.3 F H 123 H 20 123/78 98 12/13/19 15:56 12/13/19 15:56 12/13/19 15:56 12/13/19 15:56 12/13/19 15:56 - General no distress, cachectic - Eyes PERRL - ENT normal pinna - Neck no masses - Respiratory normal expansion - Cardiovascular Rhythm: regular - Abdomen Minimal left-sided tenderness Abdomen: soft Results - Labs 12/15/19 06:37 12/15/19 06:37 Abnormal Lab Results - Last 24 Hours (Table) 12/14/19 12/14/19 12/15/19 Range/Units 06:44 14:25 06:37 RBC (4.30-5.90) m/uL Hgb (13.0-17.5) gm/dL Hct (39.0-53.0) % Plt Count (150-450) k/uL Neutrophils # (1.3-7.7) k/uL Lymphocytes # (1.0-4.8) k/uL Sodium 136 L (137-145) mmol/L BUN 7 L (9-20) mg/dL Creatinine 0.47 L (0.66-1.25) mg/dL Glucose 103 H (74-99) mg/dL Calcium 8.2 L (8.4-10.2) mg/dL Procalcitonin 1.89 H (0.02-0.09) ng/mL Stool Lactoferrin POSITIVE H (NEGATIVE) 12/15/19 Range/Units 06:37 RBC 3.62 L (4.30-5.90) m/uL Hgb 10.6 L (13.0-17.5) gm/dL Hct 33.4 L (39.0-53.0) % Plt Count 565 H (150-450) k/uL Neutrophils # 9.1 H (1.3-7.7) k/uL Lymphocytes # 0.6 L (1.0-4.8) k/uL Sodium (137-145) mmol/L BUN (9-20) mg/dL Creatinine (0.66-1.25) mg/dL Glucose (74-99) mg/dL Calcium (8.4-10.2) mg/dL Procalcitonin (0.02-0.09) ng/mL Stool Lactoferrin (NEGATIVE) Microbiology - Last 24 Hours (Table) 12/14/19 14:25 Stool Culture - Preliminary Stool 12/13/19 16:42 Blood Culture - Preliminary Blood No Growth after 24 hours Diabetes panel 12/15/19 Range/Units 06:37 Sodium 136 L (137-145) mmol/L Potassium 4.4 (3.5-5.1) mmol/L Chloride 105 (98-107) mmol/L Carbon Dioxide 23 (22-30) mmol/L BUN 7 L (9-20) mg/dL Creatinine 0.47 L (0.66-1.25) mg/dL Glucose 103 H (74-99) mg/dL Calcium 8.2 L (8.4-10.2) mg/dL Calcium panel 12/15/19 Range/Units 06:37 Calcium 8.2 L (8.4-10.2) mg/dL Pituitary panel 12/15/19 Range/Units 06:37 Sodium 136 L (137-145) mmol/L Potassium 4.4 (3.5-5.1) mmol/L Chloride 105 (98-107) mmol/L Carbon Dioxide 23 (22-30) mmol/L BUN 7 L (9-20) mg/dL Creatinine 0.47 L (0.66-1.25) mg/dL Glucose 103 H (74-99) mg/dL Calcium 8.2 L (8.4-10.2) mg/dL Adrenal panel 12/15/19 Range/Units 06:37 Sodium 136 L (137-145) mmol/L Potassium 4.4 (3.5-5.1) mmol/L Chloride 105 (98-107) mmol/L Carbon Dioxide 23 (22-30) mmol/L BUN 7 L (9-20) mg/dL Creatinine 0.47 L (0.66-1.25) mg/dL Glucose 103 H (74-99) mg/dL Calcium 8.2 L (8.4-10.2) mg/dL Assessment and Plan Assessment: Acute colitis of left colon descending for splenic flexure rectum. Patient is being medically treated at this point. He should undergo colonoscopy at some point.
[2019-12-15] MEDS: LORazepam 1 MG TAB PO PRN (21:32)
[2019-12-16] MEDS: SODIUM CHLORIDE 0.9% 1,000 ML IV SCH ×4 (05:46→21:42)
[2019-12-16] MEDS: SYMBICORT 160-4.5 MCG INHALER INHALATION SCH ×2 (07:14→20:28)
[2019-12-16] MEDS: IPRATROPIUM-ALBUTEROL 3 ML NEB INHALATION SCH ×4 (07:14→20:28)
[2019-12-16] MEDS: metroNIDAZOLE-NS PMX 500 MG in SALINE 1 100ML.BAG IVPB SCH ×3 (08:21→23:17)
[2019-12-16] MEDS: SALT AND SODA MOUTHWASH 1,000 ML PO SCH ×4 (08:22→22:11)
[2019-12-16] MEDS: DEXAMETHASONE 0.5 MG TAB PO SCH ×4 (08:22→21:48)
[2019-12-16] MEDS: BENZOCAINE 20 % GEL 15 GM TUBE MM SCH ×4 (08:22→21:50)
[2019-12-16] MEDS: BALSALAZIDE DISODIUM 750 MG CAPSULE PO SCH ×2 (08:22→12:57)
[2019-12-16] MEDS: FERROUS SULFATE 325 MG TAB PO SCH (08:22)
[2019-12-16 09:10] LABS: Basophils % (A) 0 %; Eosinophils % (A) 0 %; HCT 35.5 % (39.0-53.0); HGB 11.1 gm/dL (13.0-17.5); Hypochromasia Moderate; Lymphocytes # (A) 0.9 k/uL (1.0-4.8); Lymphocytes % (A) 11 %; MCH 29.5 pg (25.0-35.0); MCHC 31.4 g/dL (31.0-37.0); MCV 94.1 fL (80.0-100.0); Mean Platelet Volume 6.9; Monocytes # (A) 0.5 k/uL (0-1.0); Monocytes % (A) 5 %; Neutrophils # (A) 7.4 k/uL (1.3-7.7); Neutrophils % (A) 83 %; Platelet Count 682 k/uL (150-450); RBC 3.77 m/uL (4.30-5.90); RDW 12.2 % (11.5-15.5); WBC 8.9 k/uL (3.8-10.6)
[2019-12-16 09:20] LABS: African American GFR (CKD) >90 (>60 ml/min/1.73 sqM); Anion Gap 9 mmol/L; Blood Urea Nitrogen 6 mg/dL (9-20); Calcium 8.4 mg/dL (8.4-10.2); Carbon Dioxide 23 mmol/L (22-30); Chloride 107 mmol/L (98-107); Glucose 88 mg/dL (74-99); Non-African American GFR(CKD) >90 (>60 ml/min/1.73 sqM); Potassium 4.1 mmol/L (3.5-5.1); Sodium 139 mmol/L (137-145)
--- NOTE | 2019-12-16 13:02 | P.PN ---
Subjective this is a pleasant 64 years old male with past medical history of COPD, esophageal cancer status post chemo and radiotherapy in 2017.patient presents because of feeling weak and diarrhea with blood per rectum for the last few weeks. He says that he has watery bowel movementsevery 1 hour at night and less frequent during the daytime, and as mentioned above it has watery and blood in it. Associated with mild left lower quadrant abdominal pain and fever. Also patient feeling extremely exhausted and weak, he has low appetite with mild headache. No neck pain or stiffness. No specific weakness in extremities. No numbness. No dyspnea, no coughing, no wheezing no sore throat. However he has painful ulcer in his left cheek patient denies Sick contact.he denies smoking, alcohol or illicit drugs. Patient has no ports were IV line. No rash on admission he had a fever of 103.3, blood pressure low-normal 99/63. WBC is 10.6 K however it was 12.4 K on admission, hemoglobin 10.1, platelets within normal limits. Urinalysis showed no signs of infection. C. diff is negative. Sodium 132, lactic acid 2.8 compared to normal 1.3. Chest x-ray shows stable chronic findings with no suspicious acute pulmonary processes per radiologist.EKG showing sinus tachycardia [address]-T changes. On admission patient received 3 L of normal saline and started at 130 mL/h influenza was negative as well as C. diff, brunson virus tested and the result is pending and infectious disease was consulted 12/15/2019 Patient had frequent bowel movement today about 3 to 4 times early this morning associated with nausea and vomiting. Physical pressure still on the low side 94/61, he is on normal saline at 200 mL/h however at bedside was running at 1 30 mL/h, discussed with staff and follow blood pressure. Zofran is also added Clovis Roche looks stable.no change in his labs from today compared to yesterday including CBC and BMP Stool at different is positive, occult blood in the stool is negative, C. diff is negative we'll consult surgery team for his left-sided colitis 12/16/2019 Patient awake and alert, he is pleasant, not in distress or pain. His left lower quadrant abdominal pain is these and down gradually although it was mild from to be continued. His diarrhea stopped and actually is complaining of from constipation today. He still have some dribbling of blood per rectum. No nausea vomiting and diet is tolerated well. Discussed the case with infectious disease and surgical team. Patient planned for colonoscopy, possibly tomorrow. vitals and labs are stable, hemoglobin is 11.1 Stool cultures still pending Review of systems CONSTITUTIONAL: No fever, no malaise, no fatigue. HEENT: No recent visual problems or hearing problems. Denied any sore throat. CARDIOVASCULAR: No orthopnea, PND, no palpitations, no syncope. NEUROLOGICAL: No headaches, no weakness, no numbness. HEMATOLOGICAL: Denies any bleeding or petechiae. GENITOURINARY: Denies any burning micturition, frequency, or urgency. MUSCULOSKELETAL/RHEUMATOLOGICAL: Denies any joint pain, swelling, or any muscle pain. ENDOCRINE: Denies any polyuria or polydipsia. Active Medications Generic Name Dose Route Start Last Admin Trade Name Freq PRN Reason Stop Dose Admin Acetaminophen 650 mg 12/13/19 18:28 12/14/19 03:14 Tylenol Tab PO 650 mg Q6HR PRN Administration Mild Pain or Fever > 100.5 Hydrocodone Bitart/Acetaminophen 1 each 12/13/19 18:31 12/15/19 16:30 [place] 5-325 PO 1 each DAILY PRN Administration Pain Albuterol Sulfate 2.5 mg 12/13/19 18:31 Ventolin Nebulized INHALATION RT-Q6H PRN Shortness Of Breath Albuterol/Ipratropium 3 ml 12/14/19 08:00 12/16/19 11:38 Duoneb 0.5 Mg-3 Mg/3 Ml Soln INHALATION Not Given RT-QID KEREN Balsalazide 2,250 mg 12/14/19 07:30 12/16/19 12:57 Colazal PO 2,250 mg BID-W/MEALS KEREN Administration Benzocaine 0.5 gm 12/14/19 13:00 12/16/19 12:56 Orajel MM Not Given QID KEREN Benzocaine/Menthol 1 each 12/14/19 11:35 12/14/19 12:44 Cepacol Lozenge MUCOUS MEM 1 each Q4HR PRN Administration Sore Throat Budesonide/Formoterol Fumarate 1 puff 12/13/19 20:00 12/16/19 07:14 Symbicort 160-4.5 Mcg Inhaler INHALATION 1 puff RT-BID KEREN Administration Dexamethasone 0.5 mg 12/13/19 22:00 12/16/19 12:57 Hexadrol PO 0.5 mg QID KEREN Administration Ferrous Sulfate 325 mg 12/14/19 09:00 12/16/19 08:22 Feosol PO 325 mg DAILY KEREN Administration Sodium Chloride 1,000 mls @ 200 mls/hr 12/13/19 18:30 12/16/19 12:58 Saline 0.9% IV 200 mls/hr .Q5H KEREN Administration Metronidazole 500 mg/ IV 100 mls @ 100 mls/hr 12/14/19 11:00 12/16/19 08:21 Solution IVPB 100 mls/hr Q8HR KEREN Administration Ceftriaxone Sodium 2 gm/ 50 mls @ 100 mls/hr 12/14/19 22:00 12/15/19 21:32 Sodium Chloride IVPB 100 mls/hr Q24H KEREN Administration Lorazepam 1 mg 12/13/19 18:31 12/15/19 21:32 Ativan PO 1 mg TID PRN Administration Anxiety Naloxone HCl 0.2 mg 12/13/19 18:28 Narcan IV Q2M PRN Opioid Reversal Ondansetron HCl 4 mg 12/15/19 11:52 12/15/19 12:30 Zofran IVP 4 mg Q6HR PRN Administration Nausea And Vomiting Sodium Bicarbonate 5 ml 12/14/19 13:00 12/16/19 12:56 PO Not Given QID KEREN Objective - Vital Signs Vital signs: Vital Signs Temp 97.7 F 12/16/19 07:35 Pulse 100 12/16/19 07:35 Resp 16 12/16/19 07:35 BP 102/56 12/16/19 07:35 Pulse Ox 96 12/16/19 07:35 Intake & Output 12/15/19 12/16/19 12/16/19 18:59 06:59 18:59 Intake Total 1190 60 Balance 1190 60 Intake: IV 1140 Sodium Chloride 0.9% 1, 1040 000 ml @ 200 mls/hr IV . Q5H [facility] Rx#:[id number] metroNIDAZOLE-NS PMX 500 100 mg In Saline 1 100ml.bag @ 100 mls/hr IVPB Q8HR [facility] Rx#:[id number] Intake, IV Titration 50 Amount cefTRIAXone 2 gm In 50 Sodium Chloride 0.9% 50 ml @ 100 mls/hr IVPB Q24H [facility] Rx#:[id number] Oral 60 Other: # Voids 3 - Exam -GENERAL: The patient is alert and oriented x3, not in any acute distress. Well developed, well nourished. generally weak -HEENT: Pupils are round and equally reacting to light. EOMI. No scleral icterus. No conjunctival pallor. Normocephalic, atraumatic. No pharyngeal erythema. No thyromegaly. left cheek mouth ulcer less than half an inch in diameter CARDIOVASCULAR: S1 and S2 present. No murmurs, rubs, or gallops. PULMONARY: Chest is clear to auscultation, no wheezing or crackles. -ABDOMEN: Soft, LLQ tenderness, no rebound tenderness or guarding, nondistended, normoactive bowel sounds. No palpable organomegaly. MUSCULOSKELETAL: No joint swelling or deformity. EXTREMITIES: No cyanosis, clubbing, or pedal edema. NEUROLOGICAL: Gross neurological examination did not reveal any focal deficits. meningeal signs are absent SKIN: No rashes. No petechiae - Labs CBC & Chem 7: 12/16/19 08:05 12/16/19 08:05 Labs: Abnormal Lab Results - Last 24 Hours (Table) 12/16/19 12/16/19 Range/Units 08:05 08:05 RBC 3.77 L (4.30-5.90) m/uL Hgb 11.1 L (13.0-17.5) gm/dL Hct 35.5 L (39.0-53.0) % Plt Count 682 H (150-450) k/uL Lymphocytes # 0.9 L (1.0-4.8) k/uL BUN 6 L (9-20) mg/dL Creatinine 0.47 L (0.66-1.25) mg/dL Microbiology - Last 24 Hours (Table) 12/13/19 16:42 Blood Culture - Preliminary Blood No Growth after 48 hours Assessment and Plan Assessment: acute gastroenteritis with watery and bloody diarrhea and LLQ tenderness left Cheek aphthous ulcer severe sepsis with SIRS criteria of leukocytosis and fever Hypotension height lactic acid came back to normal History of esophageal cancer status post chemoradiotherapy in 2017 COPD acute exacerbation Plan: this is a pleasant 64 years old male who presents with fever and sepsis and gastroenteritis.continue with IV fluid and increase the rate to 200 mL per hour, start the patient on ceftriaxoneand Flagyl,infectious disease service was already consulted. consult surgery Follow-up blood culture. Send stool culture . Swish and spit and topical treatment for his mouth also Labs and medication were reviewed.. Continue same treatment. Continue with symptomatic treatment. Resume home medication. Monitor lytes and vitals. DVT and GI prophylaxis. Further recommendations of the clinical course of the patient DVT prophylaxis: no heparin in view of possible GI bleed GI Prophylaxis: Ppi PT/OT: Pending Prognosis is guarded
[2019-12-16] MEDS ORDERED: PEG 3350-NA SULF,BICARB,CL/KCL 4,000 ML BOTTLE PO ONE (13:14)
[2019-12-16] MEDS: LORazepam 1 MG TAB PO PRN (15:34)
--- NOTE | 2019-12-16 18:15 | PN ---
PROGRESS NOTE DATE OF SERVICE: 12/16/2019 REASON FOR FOLLOWUP: Colitis. INTERVAL HISTORY: The patient is currently afebrile. The patient is breathing comfortably. He is feeling better as well. The patient's diarrhea has improved. No nausea, no vomiting. No chest pain, shortness of breath or cough. No abdominal pain. PHYSICAL EXAMINATION: Blood pressure is 98/57, pulse of 82, temperature 98. He is 99% on room air. General description is a middle-aged male lying in bed in no distress. RESPIRATORY SYSTEM: Unlabored breathing. Clear to auscultation anteriorly. HEART: S1, S2. Regular rate and rhythm. ABDOMEN: Soft. No tenderness. LABS: Hemoglobin 11.1, white count 8.9. Creatinine is 0.47. Stool culture pending. Blood culture so far negative. DIAGNOSTIC IMPRESSION AND PLAN: Patient admitted to hospital with a fever with evidence of colitis on the CT and needing colonoscopy. Patient is covered with Rocephin and Flagyl, to which the patient has clinically responded. Continue while waiting for the culture to finalize. Continue with supportive care. MMODL / IJN: [id number] /
[2019-12-17] MEDS: SODIUM CHLORIDE 0.9% 1,000 ML IV SCH ×5 (01:52→22:40)
[2019-12-17] MEDS: IPRATROPIUM-ALBUTEROL 3 ML NEB INHALATION SCH ×4 (07:43→19:39)
[2019-12-17] MEDS: SYMBICORT 160-4.5 MCG INHALER INHALATION SCH ×2 (07:44→19:39)
[2019-12-17] MEDS: BALSALAZIDE DISODIUM 750 MG CAPSULE PO SCH ×2 (08:26→17:28)
[2019-12-17 08:50] LABS: Basophils % (A) 0 %; Eosinophils % (A) 0 %; HGB 9.8 gm/dL (13.0-17.5); Hypochromasia Slight; Lymphocytes # (A) 0.9 k/uL (1.0-4.8); Lymphocytes % (A) 21 %; MCH 28.6 pg (25.0-35.0); MCHC 30.8 g/dL (31.0-37.0); Mean Platelet Volume 6.5; Monocytes # (A) 0.3 k/uL (0-1.0); Monocytes % (A) 6 %; Neutrophils % (A) 71 %; Platelet Count 584 k/uL (150-450); RBC 3.44 m/uL (4.30-5.90); RDW 12.3 % (11.5-15.5); WBC 4.3 k/uL (3.8-10.6)
[2019-12-17] MEDS: metroNIDAZOLE-NS PMX 500 MG in SALINE 1 100ML.BAG IVPB SCH ×2 (09:03→17:27)
[2019-12-17] MEDS: SALT AND SODA MOUTHWASH 1,000 ML PO SCH ×4 (09:04→22:56)
[2019-12-17] MEDS: BENZOCAINE 20 % GEL 15 GM TUBE MM SCH ×4 (09:04→22:56)
[2019-12-17 09:05] LABS: African American GFR (CKD) >90 (>60 ml/min/1.73 sqM); Anion Gap 7 mmol/L; Blood Urea Nitrogen 5 mg/dL (9-20); Calcium 8.2 mg/dL (8.4-10.2); Carbon Dioxide 23 mmol/L (22-30); Chloride 108 mmol/L (98-107); Glucose 79 mg/dL (74-99); Non-African American GFR(CKD) >90 (>60 ml/min/1.73 sqM); Potassium 3.9 mmol/L (3.5-5.1); Sodium 138 mmol/L (137-145)
[2019-12-17 10:12] LABS: Erythrocyte Sedimentation Rate 36 mm/hr (0-15)
--- NOTE | 2019-12-17 10:16 | P.PN ---
Subjective this is a pleasant 64 years old male with past medical history of COPD, esophageal cancer status post chemo and radiotherapy in 2017.patient presents because of feeling weak and diarrhea with blood per rectum for the last few weeks. He says that he has watery bowel movementsevery 1 hour at night and less frequent during the daytime, and as mentioned above it has watery and blood in it. Associated with mild left lower quadrant abdominal pain and fever. Also patient feeling extremely exhausted and weak, he has low appetite with mild headache. No neck pain or stiffness. No specific weakness in extremities. No numbness. No dyspnea, no coughing, no wheezing no sore throat. However he has painful ulcer in his left cheek patient denies Sick contact.he denies smoking, alcohol or illicit drugs. Patient has no ports were IV line. No rash on admission he had a fever of 103.3, blood pressure low-normal 99/63. WBC is 10.6 K however it was 12.4 K on admission, hemoglobin 10.1, platelets within normal limits. Urinalysis showed no signs of infection. C. diff is negative. Sodium 132, lactic acid 2.8 compared to normal 1.3. Chest x-ray shows stable chronic findings with no suspicious acute pulmonary processes per radiologist.EKG showing sinus tachycardia [address]-T changes. On admission patient received 3 L of normal saline and started at 130 mL/h influenza was negative as well as C. diff, brunson virus tested and the result is pending and infectious disease was consulted 12/15/2019 Patient had frequent bowel movement today about 3 to 4 times early this morning associated with nausea and vomiting. Physical pressure still on the low side 94/61, he is on normal saline at 200 mL/h however at bedside was running at 1 30 mL/h, discussed with staff and follow blood pressure. Zofran is also added Clovis Roche looks stable.no change in his labs from today compared to yesterday including CBC and BMP Stool at different is positive, occult blood in the stool is negative, C. diff is negative we'll consult surgery team for his left-sided colitis 12/16/2019 Patient awake and alert, he is pleasant, not in distress or pain. His left lower quadrant abdominal pain is these and down gradually although it was mild from to be continued. His diarrhea stopped and actually is complaining of from constipation today. He still have some dribbling of blood per rectum. No nausea vomiting and diet is tolerated well. Discussed the case with infectious disease and surgical team. Patient planned for colonoscopy, possibly tomorrow. vitals and labs are stable, hemoglobin is 11.1 Stool cultures still pending 12/17/2019 Patient has bowel symptoms are controlled, he has no vomiting, he finish his GoLYTELY, no bowel movement yet His going for colonoscopy today. Stool cultures still pending ESR is trending down 56 to 36, C-reactive protein 227 to 45. Patient to continue on Rocephin and Flagyl. Objective - Vital Signs Vital signs: Vital Signs Temp 97.9 F 12/17/19 07:00 Pulse 71 12/17/19 08:00 Resp 18 12/17/19 08:00 BP 102/67 12/17/19 07:00 Pulse Ox 97 12/17/19 07:00 Intake & Output 12/16/19 12/17/19 12/17/19 18:59 06:59 18:59 Intake Total 60 Balance 60 Intake: Oral 60 Other: Voiding Method Toilet Toilet # Voids 1 # Bowel Movements 3 - Exam -GENERAL: The patient is alert and oriented x3, not in any acute distress. Well developed, well nourished. generally weak -HEENT: Pupils are round and equally reacting to light. EOMI. No scleral icterus. No conjunctival pallor. Normocephalic, atraumatic. No pharyngeal erythema. No thyromegaly. left cheek mouth ulcer less than half an inch in diameter CARDIOVASCULAR: S1 and S2 present. No murmurs, rubs, or gallops. PULMONARY: Chest is clear to auscultation, no wheezing or crackles. -ABDOMEN: Soft, LLQ tenderness, no rebound tenderness or guarding, nondistended, normoactive bowel sounds. No palpable organomegaly. MUSCULOSKELETAL: No joint swelling or deformity. EXTREMITIES: No cyanosis, clubbing, or pedal edema. NEUROLOGICAL: Gross neurological examination did not reveal any focal deficits. meningeal signs are absent SKIN: No rashes. No petechiae - Labs CBC & Chem 7: 12/17/19 08:03 12/17/19 08:03 Labs: Abnormal Lab Results - Last 24 Hours (Table) 12/17/19 12/17/19 Range/Units 08:03 08:03 RBC 3.44 L (4.30-5.90) m/uL Hgb 9.8 L (13.0-17.5) gm/dL Hct 32.0 L (39.0-53.0) % MCHC 30.8 L (31.0-37.0) g/dL Plt Count 584 H (150-450) k/uL Lymphocytes # 0.9 L (1.0-4.8) k/uL ESR 36 H (0-15) mm/hr Chloride 108 H (98-107) mmol/L BUN 5 L (9-20) mg/dL Creatinine 0.47 L (0.66-1.25) mg/dL Calcium 8.2 L (8.4-10.2) mg/dL C-Reactive Protein 45.0 H (<10.0) mg/L Microbiology - Last 24 Hours (Table) 12/14/19 14:25 Stool Culture - Preliminary Stool 12/13/19 16:42 Blood Culture - Preliminary Blood No Growth after 72 hours Assessment and Plan Assessment: acute gastroenteritis with watery and bloody diarrhea and LLQ tenderness left Cheek aphthous ulcer severe sepsis with SIRS criteria of leukocytosis and fever Hypotension height lactic acid came back to normal History of esophageal cancer status post chemoradiotherapy in 2017 COPD acute exacerbation Plan: this is a pleasant 64 years old male who presents with fever and sepsis and gastroenteritis.continue with IV fluid and increase the rate to 200 mL per hour, start the patient on ceftriaxoneand Flagyl,infectious disease service was already consulted. consult surgery Follow-up blood culture. Send stool culture . Swish and spit and topical treatment for his mouth also Labs and medication were reviewed.. Continue same treatment. Continue with symptomatic treatment. Resume home medication. Monitor lytes and vitals. DVT and GI prophylaxis. Further recommendations of the clinical course of the patient DVT prophylaxis: no heparin in view of possible GI bleed GI Prophylaxis: Ppi PT/OT: Pending Prognosis is guarded
--- NOTE | 2019-12-17 10:17 | P.PN ---
Subjective Progress Note Date: 12/16/19 CHIEF COMPLAINT: Colitis HISTORY OF PRESENT ILLNESS: Patient examined at the bedside with Dr. Schwarz. Patient states his abdominal pain has slightly improved today. He denies nausea or vomiting. WBC 8.9. Hemoglobin 11.1. PHYSICAL EXAM: VITAL SIGNS: Reviewed. GENERAL: Well-developed in no acute distress. HEENT: No sclera icterus. Extraocular movements grossly intact. Moist buccal mucosa. Head is atraumatic, normocephalic. ABDOMEN: Soft. Nondistended. Nontender. NEUROLOGIC: Alert and oriented. Cranial nerves II through XII grossly intact. ASSESSMENT: 1. Acute colitis PLAN: -Change diet to clear liquid -Nothing by mouth at midnight -GoLYTELY bowel prep today -Patient to undergo colonoscopy tomorrow with Dr. Schwarz Nurse practitioner note has been reviewed by physician. Signing provider agrees with the documented findings, assessment, and plan of care. Objective - Vital Signs Vital signs: Vital Signs Temp 97.7 F 12/16/19 07:35 Pulse 100 12/16/19 07:35 Resp 16 12/16/19 07:35 BP 102/56 12/16/19 07:35 Pulse Ox 96 12/16/19 07:35 Intake & Output 12/15/19 12/16/19 12/16/19 18:59 06:59 18:59 Intake Total 1190 60 Balance 1190 60 Intake: IV 1140 Sodium Chloride 0.9% 1, 1040 000 ml @ 200 mls/hr IV . Q5H KEREN Rx#:[id number] metroNIDAZOLE-NS PMX 500 100 mg In Saline 1 100ml.bag @ 100 mls/hr IVPB Q8HR KEREN Rx#:[id number] Intake, IV Titration 50 Amount cefTRIAXone 2 gm In 50 Sodium Chloride 0.9% 50 ml @ 100 mls/hr IVPB Q24H KEREN Rx#:[id number] Oral 60 Other: # Voids 3 1 - Labs CBC & Chem 7: 12/16/19 08:05 12/16/19 08:05 Labs: Abnormal Lab Results - Last 24 Hours (Table) 12/16/19 12/16/19 Range/Units 08:05 08:05 RBC 3.77 L (4.30-5.90) m/uL Hgb 11.1 L (13.0-17.5) gm/dL Hct 35.5 L (39.0-53.0) % Plt Count 682 H (150-450) k/uL Lymphocytes # 0.9 L (1.0-4.8) k/uL BUN 6 L (9-20) mg/dL Creatinine 0.47 L (0.66-1.25) mg/dL Microbiology - Last 24 Hours (Table) 12/13/19 16:42 Blood Culture - Preliminary Blood No Growth after 48 hours
[2019-12-17] MEDS ORDERED: PROPOFOL 10 MG/ML 20 ML VIAL IV ONE (10:58)
[2019-12-17] MEDS ORDERED: LIDOCAINE 1% INJ 10MG/ML (20 ML MDV) ONE (10:58)
[2019-12-17] MEDS ORDERED: IV FLUID CONTINUATION 1,000 ML IV ONE (10:58)
--- NOTE | 2019-12-17 11:23 | P.OP ---
Date of Procedure: 12/17/19 Preoperative Diagnosis: Colitis Postoperative Diagnosis: Severe colitis of left colon Procedure(s) Performed: Colonoscopy Anesthesia: MAC Surgeon: Karri Schwarz Pathology: other (Left colon biopsy) Condition: stable Disposition: floor Description of Procedure: The patient's placed on the endoscopy table in the lateral position. He received IV sedation. Digital rectal exam was performed which revealed no abnormalities. The flexible colonoscope was then placed patient anus and passed throughout the colon. Scope was then placed to level of the splenic flexure. At this point the colon was very friable and the scope was not advanced in order to avoid injury to the colon. There was evidence of hemorrhage within the colon. The colonic mucosa was very inflamed. Several biopsies of the left colon performed. The implant or changes extended from the splenic flexure all the way down the rectum. Scope was withdrawn from the patient.
[2019-12-17] MEDS: ONDANSETRON 4 MG/2 ML VIAL IVP PRN (12:36)
[2019-12-17] MEDS: FERROUS SULFATE 325 MG TAB PO SCH (12:44)
[2019-12-17] MEDS: DEXAMETHASONE 0.5 MG TAB PO SCH ×4 (12:44→22:38)
[2019-12-17] MEDS: methylPREDNISolone SOD SUCCI 40 MG/ML 1 ML VIAL IV SCH (22:41)
[2019-12-17] MEDS: LORazepam 1 MG TAB PO PRN (22:59)
--- NOTE | 2019-12-17 23:18 | PN ---
PROGRESS NOTE DATE OF SERVICE: 12/17/2019 REASON FOR FOLLOWUP: Colitis. INTERVAL HISTORY: The patient is currently afebrile. The patient is status post colonoscopy today. The patient tolerated the procedure. The patient denies having any chest pain or shortness of breath or cough. Abdominal pain has improved. No further nausea or vomiting. PHYSICAL EXAMINATION: Blood pressure 93/60 with a pulse of 90, temperature 97.9. He is 99% on room air. General description is a middle-aged male lying in bed in no distress. RESPIRATORY SYSTEM: Unlabored breathing. Clear to auscultation anteriorly. HEART: S1, S2. Regular rate and rhythm. ABDOMEN: Soft. No tenderness. LABS: Hemoglobin 9.8, white count 4.3. BUN of 5, creatinine 0.47. DIAGNOSTIC IMPRESSION AND PLAN: Patient admitted to hospital with fever. Source is likely acute colitis and ascites in this patient who is status post colonoscopy. Stool culture currently pending. Continue Rocephin and Flagyl. Monitor his clinical course closely. MMODL / IJN: [id number] /
[2019-12-18] MEDS: metroNIDAZOLE-NS PMX 500 MG in SALINE 1 100ML.BAG IVPB SCH ×3 (01:11→16:27)
[2019-12-18] MEDS: ACETAMINOPHEN TAB 325 MG TAB PO PRN (01:19)
[2019-12-18] MEDS: SODIUM CHLORIDE 0.9% 1,000 ML IV SCH ×5 (02:08→22:43)
[2019-12-18] MEDS: BENZOCAINE/MENTHOL LOZENG 1 EACH LOZENGE MUCOUS MEM PRN (02:43)
[2019-12-18] MEDS: IPRATROPIUM-ALBUTEROL 3 ML NEB INHALATION SCH ×4 (07:40→20:10)
[2019-12-18] MEDS: SYMBICORT 160-4.5 MCG INHALER INHALATION SCH ×2 (07:40→20:12)
[2019-12-18] MEDS: DEXAMETHASONE 0.5 MG TAB PO SCH ×4 (09:37→22:43)
[2019-12-18] MEDS: methylPREDNISolone SOD SUCCI 40 MG/ML 1 ML VIAL IV SCH ×2 (09:37→22:43)
[2019-12-18] MEDS: BALSALAZIDE DISODIUM 750 MG CAPSULE PO SCH ×2 (09:38→16:22)
[2019-12-18] MEDS: FERROUS SULFATE 325 MG TAB PO SCH (09:38)
[2019-12-18] MEDS: BENZOCAINE 20 % GEL 15 GM TUBE MM SCH ×4 (09:40→22:32)
[2019-12-18] MEDS: SALT AND SODA MOUTHWASH 1,000 ML PO SCH ×4 (09:40→22:44)
[2019-12-18] MEDS ORDERED: BISMUTH SUBSALICYLATE 4,192 MG/240 ML BOTTLE PO PRN (11:58)
[2019-12-18] MEDS ORDERED: FUROSEMIDE 10 MG/ML 4 ML VIAL IV STA (11:58)
--- NOTE | 2019-12-18 12:00 | P.PN ---
Subjective this is a pleasant 64 years old male with past medical history of COPD, esophageal cancer status post chemo and radiotherapy in 2017.patient presents because of feeling weak and diarrhea with blood per rectum for the last few weeks. He says that he has watery bowel movementsevery 1 hour at night and less frequent during the daytime, and as mentioned above it has watery and blood in it. Associated with mild left lower quadrant abdominal pain and fever. Also patient feeling extremely exhausted and weak, he has low appetite with mild headache. No neck pain or stiffness. No specific weakness in extremities. No numbness. No dyspnea, no coughing, no wheezing no sore throat. However he has painful ulcer in his left cheek patient denies Sick contact.he denies smoking, alcohol or illicit drugs. Patient has no ports were IV line. No rash on admission he had a fever of 103.3, blood pressure low-normal 99/63. WBC is 10.6 K however it was 12.4 K on admission, hemoglobin 10.1, platelets within normal limits. Urinalysis showed no signs of infection. C. diff is negative. Sodium 132, lactic acid 2.8 compared to normal 1.3. Chest x-ray shows stable chronic findings with no suspicious acute pulmonary processes per radiologist.EKG showing sinus tachycardia [address]-T changes. On admission patient received 3 L of normal saline and started at 130 mL/h influenza was negative as well as C. diff, brunson virus tested and the result is pending and infectious disease was consulted 12/15/2019 Patient had frequent bowel movement today about 3 to 4 times early this morning associated with nausea and vomiting. Physical pressure still on the low side 94/61, he is on normal saline at 200 mL/h however at bedside was running at 1 30 mL/h, discussed with staff and follow blood pressure. Zofran is also added Clovis Roche looks stable.no change in his labs from today compared to yesterday including CBC and BMP Stool at different is positive, occult blood in the stool is negative, C. diff is negative we'll consult surgery team for his left-sided colitis 12/16/2019 Patient awake and alert, he is pleasant, not in distress or pain. His left lower quadrant abdominal pain is these and down gradually although it was mild from to be continued. His diarrhea stopped and actually is complaining of from constipation today. He still have some dribbling of blood per rectum. No nausea vomiting and diet is tolerated well. Discussed the case with infectious disease and surgical team. Patient planned for colonoscopy, possibly tomorrow. vitals and labs are stable, hemoglobin is 11.1 Stool cultures still pending 12/17/2019 Patient has bowel symptoms are controlled, he has no vomiting, he finish his GoLYTELY, no bowel movement yet His going for colonoscopy today. Stool cultures still pending ESR is trending down 56 to 36, C-reactive protein 227 to 45. Patient to continue on Rocephin and Flagyl. 12/18/2019 Patient is lying in bed comfortable as usual. No vomiting, however given his history of esophageal cancer, patient has reflux symptoms and he was asking for asthma Pepto-Bismol, he has only minimal bowel movement with few traps and blood with it. His abdominal cramps is decrease in intensity. At colonoscopy yesterday which showed extensive descending colitis, colonoscopy was not finished for risk of injury. Colon biopsy was taken. Steroid was added and currently he is on Solu-Medrol 40 mg twice daily. He is also complaining of from leg swelling probably from extensive IV hydration, however his blood pressure is better today 110/70, we going to give him 1 dose of Lasix Patient continued on antibiotics with ceftriaxone and Flagyl, his ESR, C- reactive protein and 4, procalcitonin are all trending down Objective - Vital Signs Vital signs: Vital Signs Temp 97.9 F 12/18/19 07:00 Pulse 84 12/18/19 11:31 Resp 16 12/18/19 08:00 BP 110/70 12/18/19 07:00 Pulse Ox 96 12/18/19 07:00 Intake & Output 12/17/19 12/18/19 12/18/19 18:59 06:59 18:59 Intake Total 100 200 Balance 100 200 Weight 58.967 kg Intake: IV 100 Oral 200 Other: Voiding Method Toilet Toilet # Voids 3 1 - Exam -GENERAL: The patient is alert and oriented x3, not in any acute distress. Well developed, well nourished. generally weak -HEENT: Pupils are round and equally reacting to light. EOMI. No scleral icterus. No conjunctival pallor. Normocephalic, atraumatic. No pharyngeal erythema. No thyromegaly. left cheek mouth ulcer less than half an inch in diameter CARDIOVASCULAR: S1 and S2 present. No murmurs, rubs, or gallops. PULMONARY: Chest is clear to auscultation, no wheezing or crackles. -ABDOMEN: Soft, LLQ tenderness, no rebound tenderness or guarding, nondistended, normoactive bowel sounds. No palpable organomegaly. MUSCULOSKELETAL: No joint swelling or deformity. EXTREMITIES: No cyanosis, clubbing, or pedal edema. NEUROLOGICAL: Gross neurological examination did not reveal any focal deficits. meningeal signs are absent SKIN: No rashes. No petechiae - Labs CBC & Chem 7: 12/17/19 08:03 12/17/19 08:03 Labs: Abnormal Lab Results - Last 24 Hours (Table) 12/17/19 Range/Units 08:03 Procalcitonin 0.35 H (0.02-0.09) ng/mL Microbiology - Last 24 Hours (Table) 12/14/19 14:25 Stool Culture - Final Stool 12/13/19 16:42 Blood Culture - Preliminary Blood No Growth after 96 hours Assessment and Plan Assessment: acute gastroenteritis with watery and bloody diarrhea and LLQ tenderness, could be combination of infectious and inflammatory bowel disease left Cheek aphthous ulcer, improving severe sepsis with SIRS criteria of leukocytosis and fever Hypotension, improving height lactic acid came back to normal History of esophageal cancer status post chemoradiotherapy in 2017, with a Centra-Flex symptoms COPD with no acute exacerbation Plan: this is a pleasant 64 years old male who presents with fever and sepsis and gastroenteritis.continue with IV fluid and antibiotics and steroids Labs and medication were reviewed.. Continue same treatment. Continue with symptomatic treatment. Resume home medication. Monitor lytes and vitals. DVT and GI prophylaxis. Further recommendations of the clinical course of the patient DVT prophylaxis: no heparin in view of possible GI bleed GI Prophylaxis: Ppi PT/OT: Pending Prognosis is guarded
--- NOTE | 2019-12-18 12:17 | P.PN ---
Subjective Progress Note Date: 12/18/19 CHIEF COMPLAINT: Colitis HISTORY OF PRESENT ILLNESS: The patient is a 64-year-old male with history of c olitis. He feels better today than yesterday. He had a colonoscopy yesterday. No reports of blood in stools today. Hgb down 11.1 to 9.8. No fevers or chills. ROS: No reports of nausea and vomiting. No bowel movements. No new chest pain. No productive sputum PHYSICAL EXAM: VITAL SIGNS: Reviewed CONSTITUTIONAL: Well developed and in no acute distress. EYES: Conjuctivae without sclera icterus. Extraocular movements grossly intact. HEAD, EARS, NOSE, THROAT: Moist buccal mucosa. Head is atraumatic, normocephalic. Hears conversational speech. No nasal drainage. NECK: Supple. No thyroidomegaly. RESPIRATORY: Non-labored respirations and equal bilateral excursions. CARDIOVASCULAR: Palpable 2+ radial pulses. ABDOMEN: Soft. No peritonitis. MUSCULOSKELETAL: No gross deformity of the lower extremities noted. No clubbing. No cyanosis. SKIN: Good skin turgor. Well perfused. NEUROLOGIC: Cranial nerves II through XII grossly intact. No focal or lateralizing signs. PSYCH: Appropriate affect. Alert and oriented to person, place and time. CLINICAL LABS: No new labs. Previous hemoglobin 9.8. Previous white count 2300 ASSESSMENT: 1. Colitis PLAN: 1. Continue clear liquid diet until resolution of abdominal pain. 2. Monitor Hgb 3. Continue antibiotics. Objective - Vital Signs Vital signs: Vital Signs Temp 97.9 F 12/18/19 07:00 Pulse 84 12/18/19 11:31 Resp 16 12/18/19 08:00 BP 110/70 12/18/19 07:00 Pulse Ox 96 12/18/19 07:00 Intake & Output 12/17/19 12/18/19 12/18/19 18:59 06:59 18:59 Intake Total 100 200 Balance 100 200 Weight 58.967 kg Intake: IV 100 Oral 200 Other: Voiding Method Toilet Toilet # Voids 3 1 - Labs CBC & Chem 7: 12/17/19 08:03 12/17/19 08:03 Labs: Abnormal Lab Results - Last 24 Hours (Table) 12/17/19 Range/Units 08:03 Procalcitonin 0.35 H (0.02-0.09) ng/mL Microbiology - Last 24 Hours (Table) 12/14/19 14:25 Stool Culture - Final Stool 12/13/19 16:42 Blood Culture - Preliminary Blood No Growth after 96 hours Assessment and Plan (1) Colitis Current Visit: Yes Status: Acute Code(s): K52.9 - NONINFECTIVE GASTROENTERITIS AND COLITIS, UNSPECIFIED SNOMED Code(s): 95966571 (2) Dehydration Current Visit: Yes Status: Acute Code(s): E86.0 - DEHYDRATION SNOMED Code(s): 49786524
[2019-12-18] MEDS: LORazepam 1 MG TAB PO PRN (16:21)
[2019-12-19] MEDS: LORazepam 1 MG TAB PO PRN ×2 (00:30→16:18)
[2019-12-19] MEDS: metroNIDAZOLE-NS PMX 500 MG in SALINE 1 100ML.BAG IVPB SCH ×4 (01:11→23:18)
[2019-12-19] MEDS: SODIUM CHLORIDE 0.9% 1,000 ML IV SCH ×4 (05:03→23:18)
[2019-12-19] MEDS: IPRATROPIUM-ALBUTEROL 3 ML NEB INHALATION SCH ×4 (07:51→20:06)
[2019-12-19] MEDS: SYMBICORT 160-4.5 MCG INHALER INHALATION SCH ×2 (07:52→20:06)
[2019-12-19] MEDS: BALSALAZIDE DISODIUM 750 MG CAPSULE PO SCH ×2 (08:16→17:30)
[2019-12-19] MEDS: DEXAMETHASONE 0.5 MG TAB PO SCH ×4 (08:16→21:50)
[2019-12-19] MEDS: FERROUS SULFATE 325 MG TAB PO SCH (08:16)
[2019-12-19] MEDS: BENZOCAINE 20 % GEL 15 GM TUBE MM SCH ×4 (08:17→21:52)
[2019-12-19] MEDS: SALT AND SODA MOUTHWASH 1,000 ML PO SCH ×4 (08:18→21:49)
[2019-12-19] MEDS: methylPREDNISolone SOD SUCCI 40 MG/ML 1 ML VIAL IV SCH ×2 (08:22→21:50)
[2019-12-19 08:27] LABS: ALT 19 U/L (4-49); AST 23 U/L (17-59); African American GFR (CKD) >90 (>60 ml/min/1.73 sqM); Albumin 2.2 g/dL (3.5-5.0); Alkaline Phosphatase 41 U/L (38-126); Anion Gap 4 mmol/L; Blood Urea Nitrogen 6 mg/dL (9-20); Calcium 8.2 mg/dL (8.4-10.2); Carbon Dioxide 25 mmol/L (22-30); Chloride 109 mmol/L (98-107); Glucose 122 mg/dL (74-99); Non-African American GFR(CKD) >90 (>60 ml/min/1.73 sqM); Potassium 4.4 mmol/L (3.5-5.1); Sodium 138 mmol/L (137-145); Total Bilirubin 0.1 mg/dL (0.2-1.3); Total Protein 4.7 g/dL (6.3-8.2)
[2019-12-19] MEDS ORDERED: ONDANSETRON 4 MG/2 ML VIAL IVP STA (10:21)
[2019-12-19] MEDS ORDERED: MORPHINE SULFATE 4 MG/ML SYRINGE IVP PRN (11:02)
[2019-12-19] MEDS ORDERED: FUROSEMIDE 20 MG TAB PO STA (11:03)
--- NOTE | 2019-12-19 11:07 | P.PN ---
Subjective this is a pleasant 64 years old male with past medical history of COPD, esophageal cancer status post chemo and radiotherapy in 2017.patient presents because of feeling weak and diarrhea with blood per rectum for the last few weeks. He says that he has watery bowel movementsevery 1 hour at night and less frequent during the daytime, and as mentioned above it has watery and blood in it. Associated with mild left lower quadrant abdominal pain and fever. Also patient feeling extremely exhausted and weak, he has low appetite with mild headache. No neck pain or stiffness. No specific weakness in extremities. No numbness. No dyspnea, no coughing, no wheezing no sore throat. However he has painful ulcer in his left cheek patient denies Sick contact.he denies smoking, alcohol or illicit drugs. Patient has no ports were IV line. No rash on admission he had a fever of 103.3, blood pressure low-normal 99/63. WBC is 10.6 K however it was 12.4 K on admission, hemoglobin 10.1, platelets within normal limits. Urinalysis showed no signs of infection. C. diff is negative. Sodium 132, lactic acid 2.8 compared to normal 1.3. Chest x-ray shows stable chronic findings with no suspicious acute pulmonary processes per radiologist.EKG showing sinus tachycardia [address]-T changes. On admission patient received 3 L of normal saline and started at 130 mL/h influenza was negative as well as C. diff, brunson virus tested and the result is pending and infectious disease was consulted 12/15/2019 Patient had frequent bowel movement today about 3 to 4 times early this morning associated with nausea and vomiting. Physical pressure still on the low side 94/61, he is on normal saline at 200 mL/h however at bedside was running at 1 30 mL/h, discussed with staff and follow blood pressure. Zofran is also added Clovis Roche looks stable.no change in his labs from today compared to yesterday including CBC and BMP Stool at different is positive, occult blood in the stool is negative, C. diff is negative we'll consult surgery team for his left-sided colitis 12/16/2019 Patient awake and alert, he is pleasant, not in distress or pain. His left lower quadrant abdominal pain is these and down gradually although it was mild from to be continued. His diarrhea stopped and actually is complaining of from constipation today. He still have some dribbling of blood per rectum. No nausea vomiting and diet is tolerated well. Discussed the case with infectious disease and surgical team. Patient planned for colonoscopy, possibly tomorrow. vitals and labs are stable, hemoglobin is 11.1 Stool cultures still pending 12/17/2019 Patient has bowel symptoms are controlled, he has no vomiting, he finish his GoLYTELY, no bowel movement yet His going for colonoscopy today. Stool cultures still pending ESR is trending down 56 to 36, C-reactive protein 227 to 45. Patient to continue on Rocephin and Flagyl. 12/18/2019 Patient is lying in bed comfortable as usual. No vomiting, however given his history of esophageal cancer, patient has reflux symptoms and he was asking for asthma Pepto-Bismol, he has only minimal bowel movement with few traps and blood with it. His abdominal cramps is decrease in intensity. At colonoscopy yesterday which showed extensive descending colitis, colonoscopy was not finished for risk of injury. Colon biopsy was taken. Steroid was added and currently he is on Solu-Medrol 40 mg twice daily. He is also complaining of from leg swelling probably from extensive IV hydration, however his blood pressure is better today 110/70, we going to give him 1 dose of Lasix Patient continued on antibiotics with ceftriaxone and Flagyl, his ESR, C- reactive protein and 4, procalcitonin are all trending down 12/19/2019 Patient is awake alert, he has trophic night for frequent bowel movement, 3 in the middle of night and 3 this morning but with a small amount of stool and that the blood with them. He has some nausea and abdominal pain Therefore patient was provided with symptomatic treatment with morphine and Zofran. He is slightly edematous so he was given 20 mg of Lasix and lower the dose of normal saline to 75 mL/h, blood pressure this morning 107/76, rest of Vitas looks stable pathology report from his colonoscopy biopsy still pending He remains on Rocephin 2 g and Flagyl, solu-Medrol 40 mg twice daily Objective - Vital Signs Vital signs: Vital Signs Temp 97.9 F 12/19/19 07:00 Pulse 64 12/19/19 08:02 Resp 17 12/19/19 07:00 BP 107/65 12/19/19 07:00 Pulse Ox 97 12/19/19 07:00 Intake & Output 12/18/19 12/19/19 12/19/19 18:59 06:59 18:59 Intake Total 100 Balance 100 Intake: Oral 100 Other: Voiding Method Toilet - Exam -GENERAL: The patient is alert and oriented x3, not in any acute distress. Well developed, well nourished. generally weak -HEENT: Pupils are round and equally reacting to light. EOMI. No scleral icterus. No conjunctival pallor. Normocephalic, atraumatic. No pharyngeal erythema. No thyromegaly. left cheek mouth ulcer less than half an inch in diameter CARDIOVASCULAR: S1 and S2 present. No murmurs, rubs, or gallops. PULMONARY: Chest is clear to auscultation, no wheezing or crackles. -ABDOMEN: Soft, LLQ tenderness, no rebound tenderness or guarding, nondistended, normoactive bowel sounds. No palpable organomegaly. MUSCULOSKELETAL: No joint swelling or deformity. EXTREMITIES: No cyanosis, clubbing, or pedal edema. NEUROLOGICAL: Gross neurological examination did not reveal any focal deficits. meningeal signs are absent SKIN: No rashes. No petechiae - Labs CBC & Chem 7: 12/17/19 08:03 12/19/19 07:47 Labs: Abnormal Lab Results - Last 24 Hours (Table) 12/19/19 Range/Units 07:47 Chloride 109 H (98-107) mmol/L BUN 6 L (9-20) mg/dL Creatinine 0.48 L (0.66-1.25) mg/dL Glucose 122 H (74-99) mg/dL Calcium 8.2 L (8.4-10.2) mg/dL Total Bilirubin 0.1 L (0.2-1.3) mg/dL Total Protein 4.7 L (6.3-8.2) g/dL Albumin 2.2 L (3.5-5.0) g/dL Microbiology - Last 24 Hours (Table) 12/13/19 16:42 Blood Culture - Preliminary Blood No Growth after 120 hours Assessment and Plan Assessment: acute gastroenteritis with watery and bloody diarrhea and LLQ tenderness, could be combination of infectious and inflammatory bowel disease left Cheek aphthous ulcer, improving severe sepsis with SIRS criteria of leukocytosis and fever Hypotension, improving height lactic acid came back to normal History of esophageal cancer status post chemoradiotherapy in 2017, with a Centra-Flex symptoms COPD with no acute exacerbation Plan: this is a pleasant 64 years old male who presents with fever and sepsis and gastroenteritis.continue with IV fluid and antibiotics and steroids Labs and medication were reviewed.. Continue same treatment. Continue with symptomatic treatment. Resume home medication. Monitor lytes and vitals. DVT and GI prophylaxis. Further recommendations of the clinical course of the patient DVT prophylaxis: no heparin in view of possible GI bleed GI Prophylaxis: Ppi PT/OT: Pending Prognosis is guarded
--- NOTE | 2019-12-19 12:36 | P.PN ---
Subjective Progress Note Date: 12/19/19 CHIEF COMPLAINT: Colitis HISTORY OF PRESENT ILLNESS: The patient is a 64-year-old male with history of c olitis. He reports intolerance to liquid diet with milk, artificial sweetners. He reports history of esophagectomy which affects his diet. He often eats preservative free, sugar free foods. He can tolerate meats. ROS: Has bowel movements. No new chest pain. No productive sputum PHYSICAL EXAM: VITAL SIGNS: Reviewed CONSTITUTIONAL: Well developed and in no acute distress. EYES: Conjuctivae without sclera icterus. Extraocular movements grossly intact. HEAD, EARS, NOSE, THROAT: Moist buccal mucosa. Head is atraumatic, normocephalic. Hears conversational speech. No nasal drainage. NECK: Supple. No thyroidomegaly. RESPIRATORY: Non-labored respirations and equal bilateral excursions. CARDIOVASCULAR: Palpable 2+ radial pulses. ABDOMEN: Soft. No peritonitis. Scaphod MUSCULOSKELETAL: No gross deformity of the lower extremities noted. No clubbing. No cyanosis. SKIN: Good skin turgor. Well perfused. NEUROLOGIC: Cranial nerves II through XII grossly intact. No focal or lateral izing signs. PSYCH: Appropriate affect. Alert and oriented to person, place and time. CLINICAL LABS: LFTs normal. ASSESSMENT: 1. Colitis 2. Dietary management due to esophagectomy PLAN: 1. Will order CBC 2. Will need credit specialist for specialty diet 3. Will advance diet to allow for options for which he can tolerate Objective - Vital Signs Vital signs: Vital Signs Temp 97.9 F 12/19/19 07:00 Pulse 64 12/19/19 08:02 Resp 17 12/19/19 07:00 BP 107/65 12/19/19 07:00 Pulse Ox 97 12/19/19 07:00 Intake & Output 12/18/19 12/19/19 12/19/19 18:59 06:59 18:59 Intake Total 100 Balance 100 Intake: Oral 100 Other: Voiding Method Toilet - Labs CBC & Chem 7: 12/17/19 08:03 12/19/19 07:47 Labs: Abnormal Lab Results - Last 24 Hours (Table) 12/19/19 Range/Units 07:47 Chloride 109 H (98-107) mmol/L BUN 6 L (9-20) mg/dL Creatinine 0.48 L (0.66-1.25) mg/dL Glucose 122 H (74-99) mg/dL Calcium 8.2 L (8.4-10.2) mg/dL Total Bilirubin 0.1 L (0.2-1.3) mg/dL Total Protein 4.7 L (6.3-8.2) g/dL Albumin 2.2 L (3.5-5.0) g/dL Microbiology - Last 24 Hours (Table) 12/13/19 16:42 Blood Culture - Preliminary Blood No Growth after 120 hours Assessment and Plan (1) Colitis Current Visit: Yes Status: Acute Code(s): K52.9 - NONINFECTIVE GASTROENTERITIS AND COLITIS, UNSPECIFIED SNOMED Code(s): 87248526 (2) Dehydration Current Visit: Yes Status: Acute Code(s): E86.0 - DEHYDRATION SNOMED Code(s): 07753979
[2019-12-19] MEDS: ONDANSETRON 4 MG/2 ML VIAL IVP PRN (17:29)
[2019-12-20] MEDS: LORazepam 1 MG TAB PO PRN (02:26)
--- NOTE | 2019-12-20 02:57 | PN ---
PROGRESS NOTE DATE OF SERVICE: 12/19/2019 REASON FOR FOLLOWUP: Colitis. INTERVAL HISTORY: The patient is currently afebrile. The patient is breathing comfortably. Denies having any chest pain or shortness of breath or cough. No abdominal pain. He did have some recurrence of diarrhea, but no blood in the stool. Overall feeling better. PHYSICAL EXAMINATION: Blood pressure 113/78 with a pulse of 68, temperature 98.6. He is 98% on room air. General description is a middle-aged male lying in bed in no distress. RESPIRATORY SYSTEM: Unlabored breathing, clear to auscultation anteriorly. HEART: S1, S2. Regular rate and rhythm. ABDOMEN: Soft, no tenderness. LABS: BUN of 6, creatinine 0.48. Stool culture so far negative. DIAGNOSTIC IMPRESSION AND PLAN: Patient admitted to the hospital with significant nausea, vomiting, diarrhea in this patient who did have evidence of colitis on the CT. The patient clinically responded to Rocephin and the Flagyl to continue. Monitor clinical course closely. Continue with supportive care. MMODL / IJN: [id number] /
[2019-12-20] MEDS: SYMBICORT 160-4.5 MCG INHALER INHALATION SCH ×2 (08:01→19:33)
[2019-12-20] MEDS: IPRATROPIUM-ALBUTEROL 3 ML NEB INHALATION SCH ×4 (08:01→19:34)
[2019-12-20 08:32] LABS: Basophils % (A) 0 %; Eosinophils % (A) 1 %; HCT 31.5 % (39.0-53.0); HGB 9.8 gm/dL (13.0-17.5); Hypochromasia Moderate; Lymphocytes # (A) 0.6 k/uL (1.0-4.8); Lymphocytes % (A) 11 %; MCH 30.1 pg (25.0-35.0); MCHC 31.2 g/dL (31.0-37.0); MCV 96.6 fL (80.0-100.0); Mean Platelet Volume 7.8; Monocytes # (A) 0.3 k/uL (0-1.0); Monocytes % (A) 5 %; Neutrophils # (A) 4.5 k/uL (1.3-7.7); Neutrophils % (A) 82 %; Platelet Count 444 k/uL (150-450); RBC 3.26 m/uL (4.30-5.90); RDW 13.2 % (11.5-15.5); WBC 5.5 k/uL (3.8-10.6)
[2019-12-20] MEDS: DEXAMETHASONE 0.5 MG TAB PO SCH ×4 (08:41→20:16)
[2019-12-20] MEDS: BALSALAZIDE DISODIUM 750 MG CAPSULE PO SCH ×2 (08:41→18:16)
[2019-12-20] MEDS: FERROUS SULFATE 325 MG TAB PO SCH (08:41)
[2019-12-20] MEDS: metroNIDAZOLE-NS PMX 500 MG in SALINE 1 100ML.BAG IVPB SCH ×2 (08:41→16:17)
[2019-12-20] MEDS: methylPREDNISolone SOD SUCCI 40 MG/ML 1 ML VIAL IV SCH ×2 (08:41→20:15)
[2019-12-20] MEDS: SALT AND SODA MOUTHWASH 1,000 ML PO SCH ×4 (08:42→20:16)
[2019-12-20] MEDS: BENZOCAINE 20 % GEL 15 GM TUBE MM SCH ×4 (08:42→20:16)
[2019-12-20 08:53] LABS: ALT 17 U/L (4-49); AST 21 U/L (17-59); African American GFR (CKD) >90 (>60 ml/min/1.73 sqM); Albumin 2.4 g/dL (3.5-5.0); Alkaline Phosphatase 38 U/L (38-126); Anion Gap 7 mmol/L; Blood Urea Nitrogen 9 mg/dL (9-20); Calcium 8.3 mg/dL (8.4-10.2); Carbon Dioxide 27 mmol/L (22-30); Chloride 106 mmol/L (98-107); Glucose 106 mg/dL (74-99); Non-African American GFR(CKD) >90 (>60 ml/min/1.73 sqM); Potassium 4.3 mmol/L (3.5-5.1); Sodium 140 mmol/L (137-145); Total Bilirubin 0.2 mg/dL (0.2-1.3); Total Protein 4.9 g/dL (6.3-8.2)
--- NOTE | 2019-12-20 10:14 | PN ---
PROGRESS NOTE DATE OF SERVICE: 12/18/2019 REASON FOR FOLLOWUP: Colitis. INTERVAL HISTORY: Patient is currently afebrile. The patient has been breathing comfortably. The patient did complain of some gastric reflux this morning. abdominal pain, no diarrhea, shortness of breath or cough. PHYSICAL EXAMINATION: On exam, the patient is 80, temperature 98.3. He is 98% on room air. GENERAL DESCRIPTION: The patient is a . with diarrhea, hematochezia and vomiting in this patient who did have evidence of left- sided colitis. follow clinical course closely. MMODL / IJN: [id number] /
--- NOTE | 2019-12-20 11:40 | P.PN ---
Subjective Progress Note Date: 12/20/19 CHIEF COMPLAINT: Colitis HISTORY OF PRESENT ILLNESS: Patient examined at the bedside with Dr. Schwarz. Patient states his abdominal pain has slightly improved today. He denies nausea or vomiting. Patient reports having a bowel movement today. He denies any r ectal bleeding. PHYSICAL EXAM: VITAL SIGNS: Reviewed. GENERAL: Well-developed in no acute distress. HEENT: No sclera icterus. Extraocular movements grossly intact. Moist buccal mucosa. Head is atraumatic, normocephalic. ABDOMEN: Soft. Nondistended. Nontender. NEUROLOGIC: Alert and oriented. Cranial nerves II through XII grossly intact. ASSESSMENT: 1. Acute colitis PLAN: -Continue regular diet -Decrease IV steroids to 20 mg every 12 hours Nurse practitioner note has been reviewed by physician. Signing provider agrees with the documented findings, assessment, and plan of care. Objective - Vital Signs Vital signs: Vital Signs Temp 97.8 F 12/20/19 07:00 Pulse 68 12/20/19 11:15 Resp 18 12/20/19 07:00 BP 88/57 12/20/19 07:00 Pulse Ox 96 12/20/19 07:00 Intake & Output 12/19/19 12/20/19 12/20/19 18:59 06:59 18:59 Intake Total 700 Balance 700 Intake: IV 700 Sodium Chloride 0.9% 1, 600 000 ml @ 75 mls/hr IV . [id number] [facility] Rx#:[id number] metroNIDAZOLE-NS PMX 500 100 mg In Saline 1 100ml.bag @ 100 mls/hr IVPB Q8HR [facility] Rx#:[id number] Other: Voiding Method Toilet # Voids 3 # Bowel Movements 2 - Labs CBC & Chem 7: 12/20/19 07:40 12/20/19 07:40 Labs: Abnormal Lab Results - Last 24 Hours (Table) 12/20/19 12/20/19 Range/Units 07:40 07:40 RBC 3.26 L (4.30-5.90) m/uL Hgb 9.8 L (13.0-17.5) gm/dL Hct 31.5 L (39.0-53.0) % Lymphocytes # 0.6 L (1.0-4.8) k/uL Creatinine 0.54 L (0.66-1.25) mg/dL Glucose 106 H (74-99) mg/dL Calcium 8.3 L (8.4-10.2) mg/dL Total Protein 4.9 L (6.3-8.2) g/dL Albumin 2.4 L (3.5-5.0) g/dL Microbiology - Last 24 Hours (Table) 12/14/19 14:25 Stool Culture - Final Stool 12/13/19 16:42 Blood Culture - Final Blood No Growth after 144 hours
[2019-12-20] MEDS: HYDROcodone/APAP 5-325MG 1 EACH TAB PO PRN ×2 (12:46→20:18)
--- NOTE | 2019-12-20 15:06 | P.PN ---
Subjective this is a pleasant 64 years old male with past medical history of COPD, esophageal cancer status post chemo and radiotherapy in 2017.patient presents because of feeling weak and diarrhea with blood per rectum for the last few weeks. He says that he has watery bowel movementsevery 1 hour at night and less frequent during the daytime, and as mentioned above it has watery and blood in it. Associated with mild left lower quadrant abdominal pain and fever. Also patient feeling extremely exhausted and weak, he has low appetite with mild headache. No neck pain or stiffness. No specific weakness in extremities. No numbness. No dyspnea, no coughing, no wheezing no sore throat. However he has painful ulcer in his left cheek patient denies Sick contact.he denies smoking, alcohol or illicit drugs. Patient has no ports were IV line. No rash on admission he had a fever of 103.3, blood pressure low-normal 99/63. WBC is 10.6 K however it was 12.4 K on admission, hemoglobin 10.1, platelets within normal limits. Urinalysis showed no signs of infection. C. diff is negative. Sodium 132, lactic acid 2.8 compared to normal 1.3. Chest x-ray shows stable chronic findings with no suspicious acute pulmonary processes per radiologist.EKG showing sinus tachycardia [address]-T changes. On admission patient received 3 L of normal saline and started at 130 mL/h influenza was negative as well as C. diff, brunson virus tested and the result is pending and infectious disease was consulted 12/15/2019 Patient had frequent bowel movement today about 3 to 4 times early this morning associated with nausea and vomiting. Physical pressure still on the low side 94/61, he is on normal saline at 200 mL/h however at bedside was running at 1 30 mL/h, discussed with staff and follow blood pressure. Zofran is also added Clovis Roche looks stable.no change in his labs from today compared to yesterday including CBC and BMP Stool at different is positive, occult blood in the stool is negative, C. diff is negative we'll consult surgery team for his left-sided colitis 12/16/2019 Patient awake and alert, he is pleasant, not in distress or pain. His left lower quadrant abdominal pain is these and down gradually although it was mild from to be continued. His diarrhea stopped and actually is complaining of from constipation today. He still have some dribbling of blood per rectum. No nausea vomiting and diet is tolerated well. Discussed the case with infectious disease and surgical team. Patient planned for colonoscopy, possibly tomorrow. vitals and labs are stable, hemoglobin is 11.1 Stool cultures still pending 12/17/2019 Patient has bowel symptoms are controlled, he has no vomiting, he finish his GoLYTELY, no bowel movement yet His going for colonoscopy today. Stool cultures still pending ESR is trending down 56 to 36, C-reactive protein 227 to 45. Patient to continue on Rocephin and Flagyl. 12/18/2019 Patient is lying in bed comfortable as usual. No vomiting, however given his history of esophageal cancer, patient has reflux symptoms and he was asking for asthma Pepto-Bismol, he has only minimal bowel movement with few traps and blood with it. His abdominal cramps is decrease in intensity. At colonoscopy yesterday which showed extensive descending colitis, colonoscopy was not finished for risk of injury. Colon biopsy was taken. Steroid was added and currently he is on Solu-Medrol 40 mg twice daily. He is also complaining of from leg swelling probably from extensive IV hydration, however his blood pressure is better today 110/70, we going to give him 1 dose of Lasix Patient continued on antibiotics with ceftriaxone and Flagyl, his ESR, C- reactive protein and 4, procalcitonin are all trending down 12/19/2019 Patient is awake alert, he has rough night for frequent bowel movement, 3 in the middle of night and 3 this morning but with a small amount of stool and that the blood with them. He has some nausea and abdominal pain Therefore patient was provided with symptomatic treatment with morphine and Zofran. He is slightly edematous so he was given 20 mg of Lasix and lower the d ose of normal saline to 75 mL/h, blood pressure this morning 107/76, rest of Vitas looks stable pathology report from his colonoscopy biopsy still pending He remains on Rocephin 2 g and Flagyl, solu-Medrol 40 mg twice daily 12/20/2019 Patient feels better today, his pleasant sitting in bed, he is able to tolerate some diet little bit more than liquids and dietitian evaluated him. No abdominal pain. His bowel movements is better with little or no blood. Nausea vomiting resolved His leg swelling is less. Blood pressure 92/54. We'll keep the patient on normal saline at 75 mL/h Labs reviewed and they looks stable Objective - Vital Signs Vital signs: Vital Signs Temp 97.8 F 12/20/19 14:22 Pulse 81 12/20/19 14:22 Resp 19 12/20/19 14:22 BP 92/54 12/20/19 14:22 Pulse Ox 97 12/20/19 14:22 Intake & Output 12/19/19 12/20/19 12/20/19 18:59 06:59 18:59 Intake Total 700 Balance 700 Weight 58.967 kg Intake: IV 700 Sodium Chloride 0.9% 1, 600 000 ml @ 75 mls/hr IV . [id number] [facility] Rx#:[id number] metroNIDAZOLE-NS PMX 500 100 mg In Saline 1 100ml.bag @ 100 mls/hr IVPB Q8HR [facility] Rx#:[id number] Other: Voiding Method Toilet Toilet # Voids 3 2 # Bowel Movements 2 - Exam -GENERAL: The patient is alert and oriented x3, not in any acute distress. Well developed, well nourished. generally weak -HEENT: Pupils are round and equally reacting to light. EOMI. No scleral icte moira. No conjunctival pallor. Normocephalic, atraumatic. No pharyngeal erythema. No thyromegaly. left cheek mouth ulcer less than half an inch in diameter CARDIOVASCULAR: S1 and S2 present. No murmurs, rubs, or gallops. PULMONARY: Chest is clear to auscultation, no wheezing or crackles. -ABDOMEN: Soft, LLQ tenderness, no rebound tenderness or guarding, nondistended, normoactive bowel sounds. No palpable organomegaly. MUSCULOSKELETAL: No joint swelling or deformity. EXTREMITIES: No cyanosis, clubbing, or pedal edema. NEUROLOGICAL: Gross neurological examination did not reveal any focal deficits. meningeal signs are absent SKIN: No rashes. No petechiae - Labs CBC & Chem 7: 12/20/19 07:40 12/20/19 07:40 Labs: Abnormal Lab Results - Last 24 Hours (Table) 12/20/19 12/20/19 Range/Units 07:40 07:40 RBC 3.26 L (4.30-5.90) m/uL Hgb 9.8 L (13.0-17.5) gm/dL Hct 31.5 L (39.0-53.0) % Lymphocytes # 0.6 L (1.0-4.8) k/uL Creatinine 0.54 L (0.66-1.25) mg/dL Glucose 106 H (74-99) mg/dL Calcium 8.3 L (8.4-10.2) mg/dL Total Protein 4.9 L (6.3-8.2) g/dL Albumin 2.4 L (3.5-5.0) g/dL Microbiology - Last 24 Hours (Table) 12/14/19 14:25 Stool Culture - Final Stool 12/13/19 16:42 Blood Culture - Final Blood No Growth after 144 hours Assessment and Plan Assessment: acute gastroenteritis with watery and bloody diarrhea and LLQ tenderness, could be combination of infectious and inflammatory bowel disease left Cheek aphthous ulcer, improving severe sepsis with SIRS criteria of leukocytosis and fever Hypotension, improving height lactic acid came back to normal History of esophageal cancer status post chemoradiotherapy in 2017, with a Centra-Flex symptoms COPD with no acute exacerbation Plan: this is a pleasant 64 years old male who presents with fever and sepsis and gastroenteritis.continue with IV fluid and antibiotics and steroids Labs and medication were reviewed.. Continue same treatment. Continue with symptomatic treatment. Resume home medication. Monitor lytes and vitals. DVT and GI prophylaxis. Further recommendations of the clinical course of the patient DVT prophylaxis: no heparin in view of possible GI bleed GI Prophylaxis: Ppi PT/OT: Pending Prognosis is guarded
[2019-12-20] MEDS: SODIUM CHLORIDE 0.9% 1,000 ML IV SCH (15:30)
--- NOTE | 2019-12-20 19:41 | PN ---
PROGRESS NOTE DATE OF SERVICE: 12/20/2019 REASON FOR FOLLOWUP: Colitis. INTERVAL HISTORY: The patient is currently afebrile. The patient is breathing comfortably. Denies having any chest pain or shortness of breath or cough. No abdominal pain. His diarrhea has resolved; did have soft bowel movement. No blood or mucus in the stool. PHYSICAL EXAMINATION: Blood pressure is 92/54 with a pulse of 81, temperature 97.8. He is 97% on room air. General description is a middle-aged male lying in bed in no distress. RESPIRATORY SYSTEM: Unlabored breathing. Clear to auscultation anteriorly. HEART: S1, S2. Regular rate and rhythm. ABDOMEN: Soft. No tenderness. LABS: Hemoglobin is 9.8, white count 5.5, BUN of 9, creatinine 0.54. DIAGNOSTIC IMPRESSION AND PLAN: Patient with colitis in this patient who is status post colonoscopy with inflammatory bowel disease. Culture has been negative. Patient is covered with Rocephin and Flagyl; to continue. Will benefit from GI evaluation. Continue with supportive care. MMODL / IJN: [id number] /
[2019-12-21] MEDS: metroNIDAZOLE-NS PMX 500 MG in SALINE 1 100ML.BAG IVPB SCH ×2 (00:36→09:26)
[2019-12-21] MEDS: SODIUM CHLORIDE 0.9% 1,000 ML IV SCH (05:43)
[2019-12-21 07:42] LABS: ALT 16 U/L (4-49); AST 20 U/L (17-59); African American GFR (CKD) >90 (>60 ml/min/1.73 sqM); Albumin 2.3 g/dL (3.5-5.0); Alkaline Phosphatase 31 U/L (38-126); Anion Gap 4 mmol/L; Blood Urea Nitrogen 10 mg/dL (9-20); Calcium 8.2 mg/dL (8.4-10.2); Carbon Dioxide 25 mmol/L (22-30); Chloride 108 mmol/L (98-107); Glucose 111 mg/dL (74-99); Magnesium 2.1 mg/dL (1.6-2.3); Non-African American GFR(CKD) >90 (>60 ml/min/1.73 sqM); Potassium 4.2 mmol/L (3.5-5.1); Sodium 137 mmol/L (137-145); Total Bilirubin 0.2 mg/dL (0.2-1.3); Total Protein 4.8 g/dL (6.3-8.2)
[2019-12-21] MEDS: IPRATROPIUM-ALBUTEROL 3 ML NEB INHALATION SCH ×2 (08:03→12:00)
[2019-12-21] MEDS: SYMBICORT 160-4.5 MCG INHALER INHALATION SCH (08:03)
[2019-12-21 08:33] VITALS: BP 114/66; RESP 17; TEMP 98.5
[2019-12-21 08:36] VITALS: PULSE 72
[2019-12-21] MEDS: FERROUS SULFATE 325 MG TAB PO SCH (09:27)
[2019-12-21] MEDS: DEXAMETHASONE 0.5 MG TAB PO SCH ×2 (09:27→14:21)
[2019-12-21] MEDS: BENZOCAINE 20 % GEL 15 GM TUBE MM SCH ×2 (09:27→14:12)
[2019-12-21] MEDS: BALSALAZIDE DISODIUM 750 MG CAPSULE PO SCH (09:27)
[2019-12-21] MEDS: methylPREDNISolone SOD SUCCI 40 MG/ML 1 ML VIAL IV SCH (09:27)
[2019-12-21] MEDS: SALT AND SODA MOUTHWASH 1,000 ML PO SCH ×2 (09:27→14:12)
[2019-12-21] MEDS: HYDROcodone/APAP 5-325MG 1 EACH TAB PO PRN (09:31)
[2019-12-21] MEDS: ONDANSETRON 4 MG/2 ML VIAL IVP PRN (09:44)
--- NOTE | 2019-12-21 10:26 | P.PN ---
Subjective this is a pleasant 64 years old male with past medical history of COPD, esophageal cancer status post chemo and radiotherapy in 2017.patient presents because of feeling weak and diarrhea with blood per rectum for the last few weeks. He says that he has watery bowel movementsevery 1 hour at night and less frequent during the daytime, and as mentioned above it has watery and blood in it. Associated with mild left lower quadrant abdominal pain and fever. Also patient feeling extremely exhausted and weak, he has low appetite with mild headache. No neck pain or stiffness. No specific weakness in extremities. No numbness. No dyspnea, no coughing, no wheezing no sore throat. However he has painful ulcer in his left cheek patient denies Sick contact.he denies smoking, alcohol or illicit drugs. Patient has no ports were IV line. No rash on admission he had a fever of 103.3, blood pressure low-normal 99/63. WBC is 10.6 K however it was 12.4 K on admission, hemoglobin 10.1, platelets within normal limits. Urinalysis showed no signs of infection. C. diff is negative. Sodium 132, lactic acid 2.8 compared to normal 1.3. Chest x-ray shows stable chronic findings with no suspicious acute pulmonary processes per radiologist.EKG showing sinus tachycardia [address]-T changes. On admission patient received 3 L of normal saline and started at 130 mL/h influenza was negative as well as C. diff, brunson virus tested and the result is pending and infectious disease was consulted 12/15/2019 Patient had frequent bowel movement today about 3 to 4 times early this morning associated with nausea and vomiting. Physical pressure still on the low side 94/61, he is on normal saline at 200 mL/h however at bedside was running at 1 30 mL/h, discussed with staff and follow blood pressure. Zofran is also added Clovis Roche looks stable.no change in his labs from today compared to yesterday including CBC and BMP Stool at different is positive, occult blood in the stool is negative, C. diff is negative we'll consult surgery team for his left-sided colitis 12/16/2019 Patient awake and alert, he is pleasant, not in distress or pain. His left lower quadrant abdominal pain is these and down gradually although it was mild from to be continued. His diarrhea stopped and actually is complaining of from constipation today. He still have some dribbling of blood per rectum. No nausea vomiting and diet is tolerated well. Discussed the case with infectious disease and surgical team. Patient planned for colonoscopy, possibly tomorrow. vitals and labs are stable, hemoglobin is 11.1 Stool cultures still pending 12/17/2019 Patient has bowel symptoms are controlled, he has no vomiting, he finish his GoLYTELY, no bowel movement yet His going for colonoscopy today. Stool cultures still pending ESR is trending down 56 to 36, C-reactive protein 227 to 45. Patient to continue on Rocephin and Flagyl. 12/18/2019 Patient is lying in bed comfortable as usual. No vomiting, however given his history of esophageal cancer, patient has reflux symptoms and he was asking for asthma Pepto-Bismol, he has only minimal bowel movement with few traps and blood with it. His abdominal cramps is decrease in intensity. At colonoscopy yesterday which showed extensive descending colitis, colonoscopy was not finished for risk of injury. Colon biopsy was taken. Steroid was added and currently he is on Solu-Medrol 40 mg twice daily. He is also complaining of from leg swelling probably from extensive IV hydration, however his blood pressure is better today 110/70, we going to give him 1 dose of Lasix Patient continued on antibiotics with ceftriaxone and Flagyl, his ESR, C- reactive protein and 4, procalcitonin are all trending down 12/19/2019 Patient is awake alert, he has rough night for frequent bowel movement, 3 in the middle of night and 3 this morning but with a small amount of stool and that the blood with them. He has some nausea and abdominal pain Therefore patient was provided with symptomatic treatment with morphine and Zofran. He is slightly edematous so he was given 20 mg of Lasix and lower the d ose of normal saline to 75 mL/h, blood pressure this morning 107/76, rest of Vitas looks stable pathology report from his colonoscopy biopsy still pending He remains on Rocephin 2 g and Flagyl, solu-Medrol 40 mg twice daily 12/20/2019 Patient feels better today, his pleasant sitting in bed, he is able to tolerate some diet little bit more than liquids and dietitian evaluated him. No abdominal pain. His bowel movements is better with little or no blood. Nausea vomiting resolved His leg swelling is less. Blood pressure 92/54. We'll keep the patient on normal saline at 75 mL/h Labs reviewed and they looks stable 12/21/2019 Patient with an alert, his bowel looks better. His colon biopsy came back showing inflammatory bowel disease. Consult was placed for gastroenterology team and patient informed and he agrees. Currently he is on Solu-Medrol 20 mg twice a day. Objective - Vital Signs Vital signs: Vital Signs Temp 98.5 F 12/21/19 07:00 Pulse 72 12/21/19 08:03 Resp 17 12/21/19 07:00 BP 114/66 12/21/19 07:00 Pulse Ox 93 L 12/21/19 07:00 Intake & Output 12/20/19 12/21/19 12/21/19 18:59 06:59 18:59 Weight 58.967 kg Other: Voiding Method Toilet Toilet # Voids 2 2 - Exam -GENERAL: The patient is alert and oriented x3, not in any acute distress. Well developed, well nourished. generally weak -HEENT: Pupils are round and equally reacting to light. EOMI. No scleral icterus. No conjunctival pallor. Normocephalic, atraumatic. No pharyngeal erythema. No thyromegaly. left cheek mouth ulcer less than half an inch in diameter CARDIOVASCULAR: S1 and S2 present. No murmurs, rubs, or gallops. PULMONARY: Chest is clear to auscultation, no wheezing or crackles. -ABDOMEN: Soft, LLQ tenderness, no rebound tenderness or guarding, nondistended, normoactive bowel sounds. No palpable organomegaly. MUSCULOSKELETAL: No joint swelling or deformity. EXTREMITIES: No cyanosis, clubbing, or pedal edema. NEUROLOGICAL: Gross neurological examination did not reveal any focal deficits. meningeal signs are absent SKIN: No rashes. No petechiae - Labs CBC & Chem 7: 12/20/19 07:40 12/21/19 07:00 Labs: Abnormal Lab Results - Last 24 Hours (Table) 12/21/19 Range/Units 07:00 Chloride 108 H (98-107) mmol/L Creatinine 0.47 L (0.66-1.25) mg/dL Glucose 111 H (74-99) mg/dL Calcium 8.2 L (8.4-10.2) mg/dL Alkaline Phosphatase 31 L (38-126) U/L Total Protein 4.8 L (6.3-8.2) g/dL Albumin 2.3 L (3.5-5.0) g/dL Assessment and Plan Assessment: acute gastroenteritis with watery and bloody diarrhea and LLQ tenderness, could be combination of infectious and inflammatory bowel disease inflammatory bowel disease left Cheek aphthous ulcer, improving severe sepsis with SIRS criteria of leukocytosis and fever Hypotension, improving height lactic acid came back to normal History of esophageal cancer status post chemoradiotherapy in 2017, with a Centra-Flex symptoms COPD with no acute exacerbation Plan: this is a pleasant 64 years old male who presents with fever and sepsis and gastroenteritis.continue with IV fluid and antibiotics and steroids . Consult GI team. Patient followed closely by ID and surgery team as well Labs and medication were reviewed.. Continue same treatment. Continue with symptomatic treatment. Resume home medication. Monitor lytes and vitals. DVT and GI prophylaxis. Further recommendations of the clinical course of the deja ent DVT prophylaxis: no heparin in view of possible GI bleed GI Prophylaxis: Ppi PT/OT: Pending Prognosis is guarded
--- NOTE | 2019-12-21 11:04 | P.PN ---
Subjective Progress Note Date: 12/21/19 CHIEF COMPLAINT: Colitis HISTORY OF PRESENT ILLNESS: Patient examined at the bedside this morning. Patient denies abdominal pain. He reports having a bowel movement this morning. Denies rectal bleeding. patient is anxious to be discharge home. Pathology of colon biopsy reveals active colitis: favor inflammatory bowel disease. PHYSICAL EXAM: VITAL SIGNS: Reviewed. GENERAL: Well-developed in no acute distress. HEENT: No sclera icterus. Extraocular movements grossly intact. Moist buccal mucosa. Head is atraumatic, normocephalic. ABDOMEN: Soft. Nondistended. Nontender. NEUROLOGIC: Alert and oriented. Cranial nerves II through XII grossly intact. ASSESSMENT: 1. Acute colitis PLAN: -Continue diet as tolerated -GI consulted for evaluation. Await input and recommendations Nurse practitioner note has been reviewed by physician. Signing provider agrees with the documented findings, assessment, and plan of care. Objective - Vital Signs Vital signs: Vital Signs Temp 98.5 F 12/21/19 07:00 Pulse 72 12/21/19 08:03 Resp 17 12/21/19 07:00 BP 114/66 12/21/19 07:00 Pulse Ox 93 L 12/21/19 07:00 Intake & Output 12/20/19 12/21/19 12/21/19 18:59 06:59 18:59 Intake Total 150 Balance 150 Weight 58.967 kg Intake: Oral 150 Other: Voiding Method Toilet Toilet # Voids 2 2 - Labs CBC & Chem 7: 12/20/19 07:40 12/21/19 07:00 Labs: Abnormal Lab Results - Last 24 Hours (Table) 12/21/19 Range/Units 07:00 Chloride 108 H (98-107) mmol/L Creatinine 0.47 L (0.66-1.25) mg/dL Glucose 111 H (74-99) mg/dL Calcium 8.2 L (8.4-10.2) mg/dL Alkaline Phosphatase 31 L (38-126) U/L Total Protein 4.8 L (6.3-8.2) g/dL Albumin 2.3 L (3.5-5.0) g/dL
--- NOTE | 2019-12-21 13:14 | P.DS ---
Providers Date of admission: 12/13/19 18:32 Attending physician: Yuri Vizcaino Consults: 12/13/19 18:29 Consult Physician Routine Consulting Provider: Darlene Carrillo Consult Reason/Comments: Fever of unknown origin Do you want consulting provider notified?: Yes 12/15/19 11:50 Consult Physician Urgent Consulting Provider: Karri Schwarz Consult Reason/Comments: colitis Do you want consulting provider notified?: Already Contacted 12/20/19 23:08 Consult Physician Routine Consulting Provider: Rocael Moore Consult Reason/Comments: IBD on colon Bx Do you want consulting provider notified?: Yes Primary care physician: Carolina Petersen [facility] Course: Diagnoses: acute gastroenteritis with watery and bloody diarrhea and LLQ tenderness, could be combination of infectious and inflammatory bowel disease inflammatory bowel disease left Cheek aphthous ulcer, improving severe sepsis with SIRS criteria of leukocytosis and fever Hypotension, improving height lactic acid came back to normal History of esophageal cancer status post chemoradiotherapy in 2017, with a Centra-Flex symptoms COPD with no acute exacerbation Hospital course: this is a pleasant 64 years old male with past medical history of COPD, esophageal cancer status post chemo and radiotherapy in 2017.patient presents because of feeling weak and diarrhea with blood per rectum for the last few weeks. Associated with mild left lower quadrant abdominal pain and fever of 103.3. C. diff is negative. CT of the abdomen and pelvis showed severe descending colitis. His pro-calcitonin was elevated. Colonoscopy showing severe descending colitis and colonic biopsy showing inflammatory bowel disease. Patient was treated with Flagyl and Rocephin. On the day of discharge she is fully awake and oriented, no nausea vomiting, tolerating diet well, abdominal pain resolved, his bowel movement diarrhea significantly proved with no more or little blood per rectum Also was treated with steroids. Patient showed interval improvement in his symptoms significantly subsided however not completely resolved. Patient has been evaluated by several consultants including infectious disease, surgery and gastroenterology. I discussed the case with GI team were going to discharge him on 40 mg of prednisone, taper to every week by 10 mg and follow up with GI in 2 weeks. Problems and management plan were discussed with the patient and he verbalized understanding and acceptance Patient was found stable and can be discharged home however he needs follow-up as an outpatient. Patient was instructed to follow up with PCP within one week and patient agrees. Patient agrees to follow up with GI team and Dr. Darby in 2 weeks and an appointment made for him on 01/05 Gen: patient is a AAOx3, no distress CVS: S1-S2, RRR, no murmur Lungs: B/L CTA, no wheezing Abdomen: soft, no distention, no tenderness, positive bowel sounds Extremity: no leg edema or induration Time spent more than 35 minutes Patient Condition at Discharge: Fair Plan - Discharge Summary Discharge Rx Participant: No New Discharge Prescriptions: New Bismuth Subsalicylate [Bismatrol] 524 mg PO Q1HR PRN 2 Days #480 ml PRN Reason: Diarrhea Cefuroxime Axetil [Ceftin] 500 mg PO BID 7 Days #14 tab metroNIDAZOLE [Flagyl] 500 mg PO Q8HR 7 Days #21 tab predniSONE 10 mg PO DIRECTED #70 tab Ondansetron HCl [Zofran] 4 mg PO Q8H PRN #15 tab PRN Reason: Nausea And Vomiting Continue Albuterol Nebulized [Ventolin Nebulized] 2.5 mg INHALATION RT-QID LORazepam [Ativan] 1 mg PO TID PRN PRN Reason: Anxiety Budesonide/Formoterol Fumarate [Symbicort 160-4.5 Mcg Inhaler] 1 puff INHALATION RT-BID Albuterol Inhaler [Ventolin Hfa Inhaler] 2 puff INHALATION RT-Q6H PRN PRN Reason: Shortness Of Breath Ipratropium Nebulized [Atrovent Nebulized 0.2 MG/ML] 0.5 mg INHALATION RT-QID Balsalazide Disodium [Colazal] 2,250 mg PO BID-W/MEALS HYDROcodone/APAP 5-325MG [[place] 5-325] 1 tab PO DAILY PRN PRN Reason: Pain Ferrous Sulfate [Iron (65 MG Elemental)] 325 mg PO DAILY Discontinued Dexamethasone [Decadron Elixir] 0.5 mg PO QID Discharge Medication List Albuterol Nebulized [Ventolin Nebulized] 2.5 mg INHALATION RT-QID 03/14/17 [History] Albuterol Inhaler [Ventolin Hfa Inhaler] 2 puff INHALATION RT-Q6H PRN 12/13/19 [History] Balsalazide Disodium [Colazal] 2,250 mg PO BID-W/MEALS 12/13/19 [History] Budesonide/Formoterol Fumarate [Symbicort 160-4.5 Mcg Inhaler] 1 puff INHALATION RT-BID 12/13/19 [History] Ferrous Sulfate [Iron (65 MG Elemental)] 325 mg PO DAILY 12/13/19 [History] HYDROcodone/APAP 5-325MG [[place] 5-325] 1 tab PO DAILY PRN 12/13/19 [History] Ipratropium Nebulized [Atrovent Nebulized 0.2 MG/ML] 0.5 mg INHALATION RT-QID 12/13/19 [History] LORazepam [Ativan] 1 mg PO TID PRN 12/13/19 [History] Bismuth Subsalicylate [Bismatrol] 524 mg PO Q1HR PRN 2 Days #480 ml 12/21/19 [Rx] Cefuroxime Axetil [Ceftin] 500 mg PO BID 7 Days #14 tab 12/21/19 [Rx] Ondansetron HCl [Zofran] 4 mg PO Q8H PRN #15 tab 12/21/19 [Rx] metroNIDAZOLE [Flagyl] 500 mg PO Q8HR 7 Days #21 tab 12/21/19 [Rx] predniSONE 10 mg PO DIRECTED #70 tab 12/21/19 [Rx] Follow up Appointment(s)/Referral(s): Carolina Petersen MD [Primary Care Provider] - 1-2 days (Staff unable to reach office at time of discharge please call FridayDecember 19 to set up a follow up appointment) Rocael Moore MD [STAFF PHYSICIAN] - 01/06/20 3:00 pm Karri Schwarz MD [STAFF PHYSICIAN] - 12/28/19 1:00 pm () Activity/Diet/Wound Care/Special Instructions: your previous diet activity is limited till you see your doctor Discharge Disposition: HOME SELF-CARE
--- NOTE | 2019-12-21 14:12 | PN ---
PROGRESS NOTE DATE OF SERVICE: 12/21/2019 REASON FOR FOLLOWUP: Colitis. INTERVAL HISTORY: The patient is currently afebrile, has been breathing comfortably. Denies having any chest pain, no shortness of breath or cough. No abdominal pain, no vomiting or any other symptoms. PHYSICAL EXAMINATION: Blood pressure is 114/66, pulse of 72, temperature 98.5, he is 96% on room. General description is middle-aged male, lying in bed in no distress. RESPIRATORY SYSTEM: Unlabored breathing, clear to auscultation anteriorly. HEART: S1, S2. Regular rate and rhythm. ABDOMEN: Soft, no tenderness. LABS: normalized, creatinine 0.47. Stool culture has been negative. DIAGNOSTIC IMPRESSION AND PLAN: Patient with colitis, possibly ischemic small disease, admission. Underlying infection is not entirely excluded. Patient overall improvement on Rocephin, Flagyl. Finish therapy on a week course of oral Ceftin and Flagyl. Discussed with the admitting physician working on discharge. MMODL / IJN: [id number] /
--- NOTE | 2019-12-21 20:56 | P.CONS ---
History of Present Illness - Reason for Consult Consult date: 12/21/19 Colitis Requesting physician: Rafi E Sheet - Chief Complaint Diarrhea - History of Present Illness This 64-year-old male with a past medical history significant for COPD, esophageal cancer status post chemotherapy, radiation therapy and esophagectomy with gastric pull-through who presented to the hospital due to complaints of diarrhea and blood per rectum. The patient reports A pull loose and watery bowel movements with bright red blood mixed in with the bowel movements occurring over the past few months and worsening prior to presentation. He had associated left lower quadrant abdominal pain and had become quite weak due to the symptoms. The patient previously had symptoms approximately 1 year ago per his recollection and had a colonoscopy and was started on medications at that time. He is unclear about the details regarding these medications. Testing for Clostridium difficile was negative on presentation. The patient was taken for colonoscopy with findings of severe left colonic colitis. He was started on a 5ASA agent as well as steroid therapy with improvement in his symptoms. ESR and CRP were found to be elevated on presentation and improved with treatment. The patient is overall feeling better and asking for discharge home. Review of Systems REVIEW OF SYSTEMS: CONSTITUTIONAL: Denies any fevers, chills, weight change or fatigue. CARDIOVASCULAR: Denies any chest pain, palpitations high or low blood pressures RESPIRATORY: Denies any shortness of breath, hemoptysis or cough. GENITOURINARY: No dysuria or hematuria. MUSCULOSKELETAL: No weakness reported. SKIN: Denies any new rashes or lesions, jaundice or pallor. PSYCHIATRIC: Denies any depression or anxiety. NEUROLOGY: Denies headache, denies any new focal deficits. EARS/NOSE/THROAT: No recent hearing change, congestion, nasal discharge or sore throat. EYES: No pain in eyes, discharge or change in vision. GASTROINTESTINAL: As per HPI. Past Medical History Past Medical History: Cancer, COPD, Pneumonia Additional Past Medical History / Comment(s): esophageal cancer, finished radiation 2016, chemo finished 2017 History of Any Multi-Drug Resistant Organisms: None Reported Additional Past Surgical History / Comment(s): EGD Additional Past Anesthesia/Blood Transfusion Reaction / Comm: hallucination post op Past Psychological History: No Psychological Hx Reported Smoking Status: Former smoker Past Alcohol Use History: None Reported Past Drug Use History: None Reported - Past Family History Sister(s) Family Medical History: Cancer Brother(s) Family Medical History: Cancer Medications and Allergies Home Medications Medication Instructions Recorded Confirmed Type Albuterol Nebulized [Ventolin 2.5 mg INHALATION RT-QID 03/14/17 12/13/19 History Nebulized] Albuterol Inhaler [Ventolin Hfa 2 puff INHALATION RT-Q6H PRN 12/13/19 12/13/19 History Inhaler] Balsalazide Disodium [Colazal] 2,250 mg PO BID-W/MEALS 12/13/19 12/13/19 History Budesonide/Formoterol Fumarate 1 puff INHALATION RT-BID 12/13/19 12/13/19 His tory [Symbicort 160-4.5 Mcg Inhaler] Ferrous Sulfate [Iron (65 MG 325 mg PO DAILY 12/13/19 12/13/19 History Elemental)] HYDROcodone/APAP 5-325MG [[place] 1 tab PO DAILY PRN 12/13/19 12/13/19 History 5-325] Ipratropium Nebulized [Atrovent 0.5 mg INHALATION RT-QID 12/13/19 12/13/19 History Nebulized 0.2 MG/ML] LORazepam [Ativan] 1 mg PO TID PRN 12/13/19 12/13/19 History Bismuth Subsalicylate [Bismatrol] 524 mg PO Q1HR PRN 2 Days #480 ml 12/21/19 Rx Cefuroxime Axetil [Ceftin] 500 mg PO BID 7 Days #14 tab 12/21/19 Rx Ondansetron HCl [Zofran] 4 mg PO Q8H PRN #15 tab 12/21/19 Rx metroNIDAZOLE [Flagyl] 500 mg PO Q8HR 7 Days #21 tab 12/21/19 Rx predniSONE 10 mg PO DIRECTED #70 tab 12/21/19 Rx Allergies Allergy/AdvReac Type Severity Reaction Status Date / Time No Known Allergies Allergy Verified 12/13/19 17:13 Physical Exam Vitals: Vital Signs Temp Pulse Pulse Resp BP BP Pulse Ox 12/21/19 08:03 72 12/21/19 07:00 98.5 F 62 17 114/66 93 L 12/21/19 00:27 68 12/21/19 00:17 68 12/20/19 23:25 97.6 F 57 L 18 106/59 96 12/20/19 19:45 68 12/20/19 19:34 65 12/20/19 19:00 97.9 F 69 16 112/75 100 12/20/19 15:40 68 12/20/19 15:27 64 12/20/19 14:22 97.8 F 81 19 92/54 97 Intake and Output 12/20/19 12/21/19 12/21/19 22:59 06:59 14:59 Intake Total 150 Balance 150 Intake: Oral 150 Other: Voiding Method Toilet Toilet # Voids 2 On physical examination, patient appears comfortable in no apparent distress. HEAD: Normocephalic, atraumatic. EYES: No scleral icterus. No conjunctival injection. MOUTH: No lesions, tongue midline. NECK: Trachea midline, no gross abnormalities. CHEST: Clear to auscultation with no wheezing or rhonchi appreciated. HEART: Regular rate and rhythm. ABDOMEN: Soft, thin. Bowel sounds are positive. No organomegaly. No guarding or rigidity. EXTREMITIES: No pedal edema. SKIN: No rashes, no jaundice. NEUROLOGIC: Alert and oriented x3. No focal deficits. Results CBC & Chem 7: 12/20/19 07:40 12/21/19 07:00 Labs: Abnormal Lab Results - Last 24 Hours (Table) 12/21/19 Range/Units 07:00 Chloride 108 H (98-107) mmol/L Creatinine 0.47 L (0.66-1.25) mg/dL Glucose 111 H (74-99) mg/dL Calcium 8.2 L (8.4-10.2) mg/dL Alkaline Phosphatase 31 L (38-126) U/L Total Protein 4.8 L (6.3-8.2) g/dL Albumin 2.3 L (3.5-5.0) g/dL CT scan - abdomen: report reviewed (Moderate left colonic colitis on computed tomography scan) Assessment and Plan (1) Colitis Narrative/Plan: 64-year-old male who presented with blood per rectum and frequency found to have left-sided colitis on computed tomography scan and colonoscopy. Patient was started on 5ASA agent and steroid therapy with improvement in symptoms. By report the patient reports similar symptoms a year ago treated with medication which she does not recall. Long discussion with the patient regarding diagnosis of ulcerative colitis and need for long-term therapy. Status: Acute Code(s): K52.9 - NONINFECTIVE GASTROENTERITIS AND COLITIS, UNSPECIFIED SNOMED Code(s): 33592710 Plan: Supportive care Okay for diet Continue steroid therapy with a slow taper an outpatient setting Continue colazol Patient should follow-up in 2-3 weeks with discussion on biologic therapy at that time Thank you for allowing us to participate in the care of the patient
== END 2019-12-21 14:38 | disposition home or self-care (01) | DRG 872 ==
LOC: EC 15:54 → 4SSUR 18:32
PROVIDERS: ADMIT Hospitalist; ATTEND Hospitalist
PROC: 0DBG8ZX Excision of Left Large Intestine, Via Natural or Artificial Opening Endoscopic, Diagnostic (ICD-10-PCS; principal; 2019-12-17 10:20)
DX: A41.9 Sepsis, unspecified organism (principal); K51.50 Left sided colitis without complications; R18.8 Other ascites; E86.0 Dehydration; F17.200 Nicotine dependence, unspecified, uncomplicated; J43.9 Emphysema, unspecified; K12.0 Recurrent oral aphthae; K21.9 Gastro-esophageal reflux disease without esophagitis; K59.00 Constipation, unspecified; R62.7 Adult failure to thrive; R65.20 Severe sepsis without septic shock; Z79.51 Long term (current) use of inhaled steroids; Z85.01 Personal history of malignant neoplasm of esophagus; Z92.21 Personal history of antineoplastic chemotherapy; Z92.3 Personal history of irradiation; Z20.828 Contact with and (suspected) exposure to other viral communicable diseases; Z79.1 Long term (current) use of non-steroidal anti-inflammatories (NSAID); Z79.899 Other long term (current) drug therapy
CPT/HCPCS: 36415; 45380; 51701; 71045; 71046; 74176; 80048; 80053; 81001; 82272; 82550; 82728; 83605; 83615; 83630; 83690; 83735; 84145; 84484; 85025; 85652; 86140; 87040; 87045; 87046; 87324; 87502; 87635; 88305; 93005; 94640; 96361; 96374; 99285

== ENCOUNTER → 2020-03-21 | Outpatient (CLI) | payer MEDICARE ==
[2020-03-21 08:30] LABS: Basophils # (A) 0.1 k/uL (0-0.2); Basophils % (A) 1 %; Eosinophils # (A) 0.3 k/uL (0-0.7); Eosinophils % (A) 4 %; HCT 47.1 % (39.0-53.0); HGB 14.9 gm/dL (13.0-17.5); Lymphocytes # (A) 1.8 k/uL (1.0-4.8); Lymphocytes % (A) 29 %; MCH 28.5 pg (25.0-35.0); MCHC 31.6 g/dL (31.0-37.0); MCV 90.2 fL (80.0-100.0); Mean Platelet Volume 6.9; Monocytes # (A) 0.5 k/uL (0-1.0); Monocytes % (A) 7 %; Neutrophils # (A) 3.4 k/uL (1.3-7.7); Neutrophils % (A) 56 %; Platelet Count 267 k/uL (150-450); RBC 5.22 m/uL (4.30-5.90); RDW 14.4 % (11.5-15.5); WBC 6.1 k/uL (3.8-10.6)
[2020-03-21 12:18] LABS: ALT 21 U/L (10-49); AST 31 U/L (14-35); African American GFR (CKD) 109.4 (60.0-200.0); Alkaline Phosphatase 65 U/L (41-126); BUN/Creat Ratio 11.25 Ratio (12.00-20.00); Calcium 9.8 mg/dL (8.7-10.3); Chloride 104 mmol/L (96-109); Folate, Serum 18.3 ng/mL; Globulin 2.2 g/dL (1.6-3.3); Glucose 105 mg/dL (70-110); Non-African American GFR(CKD) 94.4 (60.0-200.0); Potassium 4.2 mmol/L (3.5-5.5); Sodium 141 mmol/L (135-145); Total Bilirubin 0.4 mg/dL (0.2-1.2); Total Protein 6.6 g/dL (6.2-8.2)
[2020-03-21 16:25] LABS: C Reactive Protein <0.4 mg/dL (0.0-0.8)
[2020-03-21 17:52] LABS: Erythrocyte Sedimentation Rate 5 mm/Hr (0-20)
== END | disposition home or self-care (01) ==
LOC: LABWHC1 07:12
PROVIDERS: ATTEND Internal Medicine
DX: K51.20 Ulcerative (chronic) proctitis without complications (principal)
CPT/HCPCS: 36415; 80053; 82607; 82746; 85025; 85652; 86140

== ENCOUNTER → 2020-06-23 | Outpatient (CLI) | payer MEDICARE ==
[2020-06-23 15:05] LABS: Basophils % (A) 0 %; Eosinophils % (A) 0 %; HCT 41.4 % (39.0-53.0); HGB 13.3 gm/dL (13.0-17.5); Lymphocytes # (A) 0.4 k/uL (1.0-4.8); Lymphocytes % (A) 5 %; MCH 30.1 pg (25.0-35.0); MCHC 32.2 g/dL (31.0-37.0); MCV 93.5 fL (80.0-100.0); Monocytes # (A) 0.1 k/uL (0-1.0); Monocytes % (A) 2 %; Neutrophils # (A) 7.1 k/uL (1.3-7.7); Neutrophils % (A) 93 %; Platelet Count 393 k/uL (150-450); RBC 4.42 m/uL (4.30-5.90); RDW 12.8 % (11.5-15.5); WBC 7.7 k/uL (3.8-10.6)
[2020-06-23 20:04] LABS: African American GFR (CKD) 109.4 (60.0-200.0); Albumin 4.2 g/dL (3.80-4.90); Albumin/Globulin Ratio 1.83 (1.60-3.17); Anion Gap 8.4 mmol/L (4.00-12.00); BUN/Creat Ratio 16.25 Ratio (12.00-20.00); C Reactive Protein 12.7 mg/dL (0.0-0.8); Calcium 9.4 mg/dL (8.7-10.3); Carbon Dioxide 26.6 mmol/L (21.6-31.8); Globulin 2.3 g/dL (1.6-3.3); Non-African American GFR(CKD) 94.4 (60.0-200.0); Potassium 4.6 mmol/L (3.5-5.5); Total Bilirubin 0.3 mg/dL (0.3-1.2); Total Protein 6.5 g/dL (6.2-8.2)
[2020-06-23 22:09] LABS: Folate, Serum 20.4 ng/mL
[2020-06-24 00:49] LABS: Erythrocyte Sedimentation Rate 56 mm/Hr (0-20)
== END | disposition home or self-care (01) ==
LOC: LABWHC1 14:13
PROVIDERS: ATTEND Internal Medicine
DX: K51.20 Ulcerative (chronic) proctitis without complications (principal)
CPT/HCPCS: 36415; 80053; 82306; 82607; 82746; 83993; 85025; 85652; 86140; 87324

== ENCOUNTER → 2020-11-14 | Outpatient (CLI) | payer MEDICARE | END | disposition home or self-care (01) | LOC: LABWHC1 22:00 | PROVIDERS: ATTEND Internal Medicine | DX: K51.20 Ulcerative (chronic) proctitis without complications (principal) | CPT/HCPCS: 83993 ==

== ENCOUNTER → 2020-11-15 | Outpatient (CLI) | payer MEDICARE ==
[2020-11-15 16:56] LABS: African American GFR (CKD) 114.8 (60.0-200.0); Albumin 4.3 g/dL (3.80-4.90); Albumin/Globulin Ratio 2.39 (1.60-3.17); Anion Gap 6.8 mmol/L (4.00-12.00); BUN/Creat Ratio 15.71 Ratio (12.00-20.00); C Reactive Protein 1.1 mg/dL (0.0-0.8); Calcium 9.6 mg/dL (8.7-10.3); Carbon Dioxide 27.2 mmol/L (21.6-31.8); Globulin 1.8 g/dL (1.6-3.3); Potassium 4.8 mmol/L (3.5-5.5); Total Bilirubin 0.3 mg/dL (0.3-1.2); Total Protein 6.1 g/dL (6.2-8.2)
[2020-11-15 18:48] LABS: Basophils # (A) 0.06 X 10*3/uL (0.00-0.10); Basophils % (A) 0.8 %; Eosinophils # (A) 0.17 X 10*3/uL (0.04-0.35); Eosinophils % (A) 2.2 %; HCT 36.1 % (39.6-50.0); HGB 10.9 g/dL (13.0-17.0); Lymphocytes # (A) 1.64 X 10*3/uL (0.90-5.00); Lymphocytes % (A) 20.9 %; MCHC 30.2 g/dL (32.0-37.0); MCV 89.6 fL (80.0-97.0); Monocytes # (A) 0.94 X 10*3/uL (0.20-1.00); Neutrophils # (A) 5.02 X 10*3/uL (1.80-7.70); Neutrophils % (A) 63.7 %; Platelet Count 326 X 10*3/uL (140-440); RBC 4.03 X 10*6/uL (4.40-5.60); RDW 15.1 % (11.5-14.5); WBC 7.86 X 10*3/uL (4.50-10.00)
[2020-11-15 21:08] LABS: Erythrocyte Sedimentation Rate 29 mm/Hr (0-20)
== END | disposition home or self-care (01) ==
LOC: LABWHC1 09:19
PROVIDERS: ATTEND Internal Medicine
DX: K51.20 Ulcerative (chronic) proctitis without complications (principal)
CPT/HCPCS: 36415; 80053; 82306; 82607; 82746; 85025; 85652; 86140

== ENCOUNTER → 2024-04-30 | Outpatient (CLI) | payer MEDICARE ==
--- NOTE | 2024-05-03 21:43 | MR ---
EXAMINATION TYPE: MR humerus RT wo con DATE OF EXAM: 04/30/2024 COMPARISON: No radiographic correlation available HISTORY: 68-year-old male with right arm pain and swelling, redness, limited movement for 3 weeks, te ndon rupture. M66.821 RT HUMERUS UPPER ARM TECHNIQUE: Multiplanar, multisequence images of the right humerus were obtained without IV contrast. FINDINGS: There is a rupture of the proximal long head biceps tendon. Some minimal strandy fibers are noted wit hin the bicipital groove at the shoulder level with moderate tenosynovial fluid. The retracted stump is located at the mid humerus level, approximately 16 cm from the top of the vilma ral head. Associated edema and hemorrhagic material around the stump. The adjacent short head biceps remains intact. In addition, there is a full-thickness tear of the anterior supraspinatus tendon measuring 1.3 cm AP and 1.1 cm long. There is fluid within the intervening gap. Severe degenerative change of the acromial clavicular joint with joint effusion and prominent margina l spurring. Large [id number] imaging limited to for detailed assessment of the shoulder and elbow joints. Ther e appears to be some areas of increased signal suggesting tendinosis and intrasubstance change at the common extensor tendon origin. IMPRESSION: 1. Proximal long head biceps tendon rupture. Reactive edema with stump retracted down to the mid vilma moira level (approximately 16 cm from the top of the humeral head). The adjacent short head biceps is i ntact. 2. Full-thickness tear of the anterior supraspinatus tendon measuring 1.3 x 1.1 cm. 3. Severe AC joint OA. 4. Common extensor tendinopathy at the elbow. [facility], Workstation: [id number], 05/03/2024 9:41 PM
== END | disposition home or self-care (01) ==
LOC: RADMRIMAIN 21:15
PROVIDERS: ATTEND Family Medicine
DX: M66.821 Spontaneous rupture of other tendons, right upper arm

== ENCOUNTER → 2024-10-04 | Outpatient (CLI) | payer MEDICARE ==
--- NOTE | 2024-10-04 14:40 | XR ---
EXAMINATION TYPE: XR chest 2V DATE OF EXAM: 10/04/2024 2:35 PM COMPARISON: Chest radiographs from 12/14/2019 TECHNIQUE: XR chest 2V Frontal and lateral views of the chest. CLINICAL INDICATION:Male, 69 years old with history of J44.1; FINDINGS: Lungs/Pleura: There is flattening of the diaphragm with increased lucency of the lungs. No evidence o f pneumothorax, pleural effusion or focal consolidation. Pulmonary vascularity: Unremarkable. Heart/mediastinum: Cardiomediastinal silhouette is unremarkable. Musculoskeletal: No acute osseous pathology. IMPRESSION: 1. No acute cardiopulmonary disease process. 2. COPD changes. [facility], , 10/04/2024 2:38 PM
== END | disposition home or self-care (01) ==
LOC: RADXRMAIN 14:20
PROVIDERS: ATTEND Family Medicine
DX: J44.1 Chronic obstructive pulmonary disease with (acute) exacerbation (principal)
CPT/HCPCS: 71046